=== PATIENT | male | born 1970 | race Hispanic/Latino ===

== ENCOUNTER 2018-01-31 15:52 | Inpatient (IN) | payer BC, OTHER ==
[2018-01-31] MEDS ORDERED: NA CHLORIDE 0.9% 1,000 ML ONE ×2 (17:31→18:13)
[2018-01-31] MEDS ORDERED: ONDANSETRON 4 MG/2 ML VIAL ONE (17:49)
[2018-01-31] MEDS ORDERED: CIPROFLOXACIN 400mg IV 400 MG/200 ML BAG IV ONE (17:49)
[2018-01-31] MEDS ORDERED: METRONIDAZOLE 500mg IVPB 500 MG/100 ML BAG IV ONE (17:50)
--- NOTE | 2018-01-31 17:50 | EKG ---
Test Date: 2018-01-31 Test Time: 17:31:42 Hand Assembler: MARK MEASUREMENT RESULTS: Intervals: Rate: 85 MA: 162 QRSD: 108 QT: 376 QTc: 447 [place]: P: 54 MA: 162 QRS: 21 T: 45 INTERPRETIVE STATEMENTS: Normal sinus rhythm Normal ECG No previous ECG available for comparison Electronically Signed On 01-31-18 17:50:18 CDT by Ronaldo Andre
[2018-01-31 17:54] LABS: Absolute Lymphocytes (CBC) 2.5 K/uL (0.7-4.9); Absolute Neutrophil 8.5 K/uL (1.8-8.0); Basophils % 0.3 % (0-1.3); Eosinophils % 0.8 % (0-4.4); Hematocrit 47.8 % (39.6-49.0); Lymphocytes % 20.6 % (15.3-44.8); MCV 87.5 fL (80-100); MPV 10.2 fL (7.6-11.3); Monocytes % 8.1 % (3.3-12.3); RBC Red Blood Cell Count 5.46 M/uL (4.33-5.43)
[2018-01-31 17:57] LABS: Protime INR 1.13
[2018-01-31] MEDS ORDERED: FENTANYL CITR 100 MCG/2 ML ONE (17:57)
[2018-01-31 18:09] LABS: ALT/SGPT 26 U/L (12-78); AST/SGOT 15 U/L (15-37); Albumin 4.2 g/dL (3.4-5.0); Alkaline Phosphatase 106 U/L (45-117); BUN Blood Urea Nitrogen 14 mg/dL (7-18); Bicarbonate 29 mmol/L (21-32); Bilirubin Direct 0.2 mg/dL (0-0.2); Bilirubin Total 0.5 mg/dL (0.2-1.0); CKMB Creatine Kinase MB < 1.0 ng/mL (0.3-3.6); Creatine Phosphokinase 71 U/L (39-308); Glucose Level 124 mg/dL (74-106); Lipase 159 U/L (73-393); Magnesium 2.1 mg/dL (1.8-2.4); NT PRO-BNP 21 pg/mL (<125); Potassium 3.6 mmol/L (3.5-5.1); Protein, Total 8.1 g/dL (6.4-8.2); Sodium Level 138 mmol/L (136-145); Troponin (Emerg Dept Use Only) < 0.02 ng/mL (0.0-0.045)
--- NOTE | 2018-01-31 18:51 | ER ---
Nurse's Notes [facility] Name: Get Sloan Age: 47 yrs Sex: Male : 1970 Arrival Date: 01/31/2018 Time: 15:[address] Private MD: Renea Garcias Diagnosis: Fever, unspecified;Vomiting;Diarrhea, unspecified;Abdominal tenderness;Essential (primary) hypertension;Type 1 diabetes mellitus Presentation: 01/31 16:04 Presenting complaint: Patient states: upper abd pain and diarrhea since Monday. Pt aa5 reports being seen by PCP yesterday and was prescribed unknown antibiotics. Pt also reports cough,headache, and chills. Transition of care: patient was not received from another setting of care. Onset of symptoms was January 2018. Risk Assessment: Do you want to hurt yourself or someone else? Patient reports no desire to harm self or others. Initial Sepsis Screen: Does the patient meet any 2 criteria? No. Patient's initial sepsis screen is negative. Does the patient have a suspected source of infection? No. Patient's initial sepsis screen is negative. Care prior to arrival: None. 16:04 Method Of Arrival: Ambulatory aa5 16:04 Acuity: ANTONIO 3 aa5 Triage Assessment: 19:24 General: Appears in no apparent distress. Behavior is calm, cooperative. ak1 Historical: - Allergies: 16:07 No Known Allergies; aa5 - PMHx: 16:07 Hypertension; Diabetes - IDDM; aa5 - PSHx: 16:07 Cholecystectomy; left eye; right knee; aa5 - Immunization history:: Flu vaccine is not up to date. - Social history:: Smoking status: Patient uses tobacco products, smokes one-half pack cigarettes per day. - Ebola Screening: : No symptoms or risks identified at this time. Screenin:39 Abuse screen: Denies threats or abuse. Nutritional screening: No deficits noted. iw Tuberculosis screening: No symptoms or risk factors identified. Fall Risk None identified. Assessment: 17:20 General: Appears in no apparent distress. Pain: Complains of pain in abdomen. Neuro: iw Level of Consciousness is awake, alert, obeys commands, Oriented to person, place, time, situation. Cardiovascular: Denies chest pain, shortness of breath, Heart tones S1 S2 Capillary refill < 3 seconds Patient's skin is warm and dry. Respiratory: Airway is patent Respiratory effort is even, unlabored, Respiratory pattern is regular, symmetrical, Breath sounds are clear bilaterally. GI: Abdomen is round Bowel sounds present X 4 quads. Abd is soft X 4 quads Reports diarrhea, nausea. : No signs and/or symptoms were reported regarding the genitourinary system. EENT: No signs and/or symptoms were reported regarding the EENT system. Derm: No signs and/or symptoms reported regarding the dermatologic system. Musculoskeletal: Range of motion: intact in all extremities. 18:15 Reassessment: Patient appears in no apparent distress at this time. Patient and/or tw2 family updated on plan of care and expected duration. Pain level reassessed. Patient is alert, oriented x 3, equal unlabored respirations, skin warm/dry/pink. Patient states feeling better. 19:23 Reassessment: pt returned from CT and informed of admission status. pt informed of NPO ak1 until test results return. family at bedside. will continue to monitor. . 20:26 Reassessment: report given to Bonny SORTO. ak1 Vital Signs: 16:07 BP 136 / 94; Pulse 100; Resp 18 S; Temp 99.3(TE); Pulse Ox 95% on R/A; Weight 108.86 kg aa5 (R); Height 5 ft. 10 in. (177.80 cm) (R); Pain 8/10; 18:09 BP 136 / 84; Pulse 85; Resp 17; Pulse Ox 95% on R/A; tw2 19:07 BP 132 / 55; Pulse 92; Resp 18; Pulse Ox 97% on R/A; mt 20:16 BP 136 / 88; Pulse 95; Resp 18; Temp 98.9; Pulse Ox 98% on R/A; Pain 4/10; ak1 16:07 Body Mass Index 34.44 (108.86 kg, 177.80 cm) aa5 ED Course: 15:57 Patient arrived in ED. mr 15:58 Renea Garcias is Private Physician. mr 16:04 Arm band placed on. aa5 16:06 Triage completed. aa5 17:19 Fahad Dai MD is Attending Physician. [facility] 17:20 Call light in reach. Side rails up X 1. Pulse ox on. NIBP on. iw 17:21 Martinez, Rocio, RN is Primary Nurse. tw2 17:26 Oral contrast given. sj 17:39 Inserted saline lock: 20 gauge in right antecubital area, using aseptic technique. iw Blood collected. 17:44 Oral contrast reported to be complete. sj 17:46 EKG done, by sql tech. reviewed by Fahad Dai MD. sm3 18:20 X-ray completed. Portable x-ray completed in exam room. Patient tolerated procedure sw well. 18:21 XRAY Chest (1 view) In Process Unspecified. EDMS 18:[address] via wheelchair. sj 18:48 Isidro Arnold MD is Hospitalizing Provider. [facility] 18:55 CT completed. Patient tolerated procedure well. Patient moved back from CT. nj 18:56 CT Abd/Pelvis - W/Contrast In Process Unspecified. EDMS 18:59 Report given to NOREEN Stauffer. tw2 19:24 No provider procedures requiring assistance completed. Patient admitted, IV remains in ak1 place. 19:51 Primary Nurse role handed off by Rocio Martinez RN rg2 20:09 Xiomy Woods RN is Primary Nurse. ak1 Administered Medications: 17:38 Drug: NS 0.9% 1000 ml Route: IV; Rate: 1 bolus; Site: right antecubital; iw 19:40 Follow up: IV Status: Completed infusion ak1 17:42 Drug: Zofran 4 mg Route: IVP; Site: right antecubital; tw2 18:32 Follow up: Response: No adverse reaction tw2 17:45 Drug: Flagyl 500 mg Volume: 100 ml; Route: IVPB; Rate: 200 ml/hr; Infused Over: 30 tw2 mins; Site: right antecubital; 18:20 Follow up: Response: No adverse reaction; IV Status: Completed infusion tw2 17:48 CANCELLED (Duplicate Order): Zofran 4 mg IVP once; over 2 minutes tw2 17:55 Drug: fentaNYL (PF) 25 mcg Route: IVP; Site: right antecubital; tw2 18:32 Follow up: Response: No adverse reaction; Pain is decreased tw2 18:21 Drug: Cipro 400 mg Volume: 200 ml; Route: IVPB; Infused Over: 60 mins; Site: right tw2 antecubital; 19:39 Follow up: IV Status: Completed infusion ak1 18:32 Drug: NS 0.9% 1000 ml Route: IV; Rate: 125 ml/hr; Site: right antecubital; tw2 19:25 Follow up: IV Status: Infusion continued upon admission ak1 20:22 Not Given (Patient Refused): fentaNYL (PF) 25 mcg IVP once ak1 Outcome: 18:50 Decision to Hospitalize by Provider. [facility] 19:24 Condition: stable ak1 19:24 Instructed on the need for admit. 20:18 Admitted to Med/surg accompanied by tech, family with patient, via wheelchair, room ak1 210, with chart. 20:41 Patient left the ED. ak1 Signatures: Dispatcher [employer] EDMS Raimundo Jewell rg2 Fahad Dai MD MD cha Rivera, Maria mr Mendel, Emmy Parisi, RN RN iw Nika Bolanos RN RN aa5 Xiomy Woods RN RN ak1 Patty Ware Tara, RN RN tw2 Abimael Nielsen Moriah mt Montes, Shakira [facility]
--- NOTE | 2018-01-31 18:51 | EDPHYS ---
Physician Documentation [facility] Name: Get Sloan Age: 47 yrs Sex: Male : 1970 Arrival Date: 01/31/2018 Time: 15:[address] Private MD: Renea Garcias ED Physician Fahad Dai HPI: 01/31 17:32 This 47 yrs old Male presents to ER via Ambulatory with complaints of dio Abdominal Pain, Diarrhea, Fever, Headache. 17:32 The patient presents to the emergency department with nausea, vomiting, diarrhea, dio abdominal pain, of the right upper quadrant, left upper quadrant, right lower quadrant and left lower quadrant. Onset: The symptoms/episode began/occurred 3 day(s) ago. Possible causes: unknown. The symptoms are aggravated by. Associated signs and symptoms: Pertinent positives: abdominal pain, diarrhea, fever, nausea, vomiting. Severity of symptoms: At their worst the symptoms were mild moderate. The patient has not experienced similar symptoms in the past. Historical: - Allergies: 16:07 No Known Allergies; aa5 - PMHx: 16:07 Hypertension; Diabetes - IDDM; aa5 - PSHx: 16:07 Cholecystectomy; left eye; right knee; aa5 - Immunization history:: Flu vaccine is not up to date. - Social history:: Smoking status: Patient uses tobacco products, smokes one-half pack cigarettes per day. - Ebola Screening: : No symptoms or risks identified at this time. ROS: 17:33 Constitutional: Negative for fever, chills, and weight loss, Eyes: Negative for injury, dio pain, redness, and discharge, ENT: Negative for injury, pain, and discharge, Neck: Negative for injury, pain, and swelling, Cardiovascular: Negative for chest pain, palpitations, and edema, Respiratory: Negative for shortness of breath, cough, wheezing, and pleuritic chest pain, Back: Negative for injury and pain, : Negative for injury, bleeding, discharge, and swelling, MS/Extremity: Negative for injury and deformity, Skin: Negative for injury, rash, and discoloration, Neuro: Negative for headache, weakness, numbness, tingling, and seizure, Psych: Negative for depression, anxiety, suicide ideation, homicidal ideation, and hallucinations, Allergy/Immunology: Negative for hives, rash, and allergies, Endocrine: Negative for neck swelling, polydipsia, polyuria, polyphagia, and marked weight changes, Hematologic/Lymphatic: Negative for swollen nodes, abnormal bleeding, and unusual bruising. 17:33 Abdomen/GI: Positive for abdominal pain, nausea and vomiting, diarrhea, of the right upper quadrant, left upper quadrant, right lower quadrant and abdomen diffusely. Exam: 17:33 Constitutional: This is a well developed, well nourished patient who is awake, alert, dio and in no acute distress. Head/Face: Normocephalic, atraumatic. Eyes: Pupils equal round and reactive to light, extra-ocular motions intact. Lids and lashes normal. Conjunctiva and sclera are non-icteric and not injected. Cornea within normal limits. Periorbital areas with no swelling, redness, or edema. ENT: Nares patent. No nasal discharge, no septal abnormalities noted. Tympanic membranes are normal and external auditory canals are clear. Oropharynx with no redness, swelling, or masses, exudates, or evidence of obstruction, uvula midline. Mucous membranes moist. Neck: Trachea midline, no thyromegaly or masses palpated, and no cervical lymphadenopathy. Supple, full range of motion without nuchal rigidity, or vertebral point tenderness. No Meningismus. Chest/axilla: Normal chest wall appearance and motion. Nontender with no deformity. No lesions are appreciated. Cardiovascular: Regular rate and rhythm with a normal S1 and S2. No gallops, murmurs, or rubs. Normal PMI, no JVD. No pulse deficits. Respiratory: Lungs have equal breath sounds bilaterally, clear to auscultation and percussion. No rales, rhonchi or wheezes noted. No increased work of breathing, no retractions or nasal flaring. Back: No spinal tenderness. No costovertebral tenderness. Full range of motion. Male : Normal genitalia with no discharge or lesions. Skin: Warm, dry with normal turgor. Normal color with no rashes, no lesions, and no evidence of cellulitis. MS/ Extremity: Pulses equal, no cyanosis. Neurovascular intact. Full, normal range of motion. Neuro: Awake and alert, GCS 15, oriented to person, place, time, and situation. Cranial nerves II-XII grossly intact. Motor strength 5/5 in all extremities. Sensory grossly intact. Cerebellar exam normal. Normal gait. Psych: Awake, alert, with orientation to person, place and time. Behavior, mood, and affect are within normal limits. 17:33 Abdomen/GI: Inspection: abdomen appears normal, Bowel sounds: normal, Palpation: moderate abdominal tenderness, in all quadrants, Liver: no appreciated palpable abnormalities, Hernia: not appreciated. 18:47 Neck: ROM/movement: is normal, no acute changes, Meningeal signs: are not present, dio Kernig's sign is negative, Brudzinski's sign is negative. Vital Signs: 16:07 BP 136 / 94; Pulse 100; Resp 18 S; Temp 99.3(TE); Pulse Ox 95% on R/A; Weight 108.86 kg aa5 (R); Height 5 ft. 10 in. (177.80 cm) (R); Pain 8/10; 18:09 BP 136 / 84; Pulse 85; Resp 17; Pulse Ox 95% on R/A; tw2 19:07 BP 132 / 55; Pulse 92; Resp 18; Pulse Ox 97% on R/A; mt 20:16 BP 136 / 88; Pulse 95; Resp 18; Temp 98.9; Pulse Ox 98% on R/A; Pain 4/10; ak1 16:07 Body Mass Index 34.44 (108.86 kg, 177.80 cm) aa5 MDM: 17:22 Patient medically screened. [facility] 17:34 Data reviewed: vital signs, nurses notes, lab test result(s), EKG, radiologic studies, [facility] CT scan, plain films. 01/31 17:21 Order name: Basic Metabolic Panel; Complete Time: 18:38 [facility] 01/31 17:21 Order name: CBC with Diff; Complete Time: 18:38 [facility] 01/31 17:21 Order name: Ckmb; Complete Time: 18:38 [facility] 01/31 17:21 Order name: CPK; Complete Time: 18:38 [facility] 01/31 17:21 Order name: LFT's; Complete Time: 18:38 [facility] 01/31 17:21 Order name: Magnesium; Complete Time: 18:38 [facility] 01/31 17:21 Order name: NT PRO-BNP; Complete Time: 18:38 [facility] 01/31 17:21 Order name: PT-INR; Complete Time: 18:38 [facility] 01/31 17:21 Order name: Ptt, Activated; Complete Time: 18:38 [facility] 01/31 17:21 Order name: Troponin (emerg Dept Use Only); Complete Time: 18:38 [facility] 01/31 17:21 Order name: Lipase; Complete Time: 18:38 [facility] 01/31 17:21 Order name: CDIFF [facility] 01/31 17:21 Order name: Stool Culture [facility] 01/31 17:21 Order name: Fecal Leukocyte Stain [facility] 01/31 17:21 Order name: XRAY Chest (1 view); Complete Time: 19:51 [facility] 01/31 17:21 Order name: EKG; Complete Time: 17:23 [facility] 01/31 17:21 Order name: Cardiac monitoring; Complete Time: 19:08 [facility] 01/31 17:21 Order name: CT Abd/Pelvis - W/Contrast; Complete Time: 19:51 [facility] 01/31 17:22 Order name: Urine Culture [facility] 01/31 20:34 Order name: Urine Dipstick--Ancillary (enter results) [facility] 01/31 17:21 Order name: EKG - Nurse/Tech; Complete Time: 19:09 [facility] 01/31 17:21 Order name: IV Saline Lock; Complete Time: 19:00 [facility] 01/31 17:21 Order name: Labs collected and sent; Complete Time: 19:00 [facility] 01/31 17:21 Order name: O2 Per Protocol; Complete Time: 19:00 [facility] 01/31 17:21 Order name: O2 Sat Monitoring; Complete Time: 19:00 [facility] 01/31 17:21 Order name: Urine Dipstick-Ancillary (obtain specimen); Complete Time: 20:23 [facility] Administered Medications: 17:38 Drug: NS 0.9% 1000 ml Route: IV; Rate: 1 bolus; Site: right antecubital; iw 19:40 Follow up: IV Status: Completed infusion ak1 17:42 Drug: Zofran 4 mg Route: IVP; Site: right antecubital; tw2 18:32 Follow up: Response: No adverse reaction tw2 17:45 Drug: Flagyl 500 mg Volume: 100 ml; Route: IVPB; Rate: 200 ml/hr; Infused Over: 30 tw2 mins; Site: right antecubital; 18:20 Follow up: Response: No adverse reaction; IV Status: Completed infusion tw2 17:48 CANCELLED (Duplicate Order): Zofran 4 mg IVP once; over 2 minutes tw2 17:55 Drug: fentaNYL (PF) 25 mcg Route: IVP; Site: right antecubital; tw2 18:32 Follow up: Response: No adverse reaction; Pain is decreased tw2 18:21 Drug: Cipro 400 mg Volume: 200 ml; Route: IVPB; Infused Over: 60 mins; Site: right tw2 antecubital; 19:39 Follow up: IV Status: Completed infusion ak1 18:32 Drug: NS 0.9% 1000 ml Route: IV; Rate: 125 ml/hr; Site: right antecubital; tw2 19:25 Follow up: IV Status: Infusion continued upon admission ak1 20:22 Not Given (Patient Refused): fentaNYL (PF) 25 mcg IVP once ak1 Disposition: 01/31/18 18:50 Hospitalization ordered by Isidro Arnold for Observation. Preliminary diagnosis are Fever, unspecified, Vomiting, Diarrhea, unspecified, Abdominal tenderness, Essential (primary) hypertension, Type 1 diabetes mellitus. - Bed requested for Telemetry/MedSurg (observation). - Status is Observation. ak1 - Condition is Stable. - Problem is new. - Symptoms have improved. UTI on Admission? No Signatures: Dispatcher [employer] EDMS Kathryn Barnes RN RN kl Anderson, Corey, MD MD cha Williams, Irene, RN RN iw Calderon, Audri, RN RN aa5 Abel Donovan PA PA 8 Xiomy Woods RN RN ak1 Rocio Martinez RN RN tw2 Corrections: (The following items were deleted from the chart) 17:23 17:21 Urine Test ordered. [place] [id number] 17:24 17:22 CDIFF.MR.LAB.BRZ ordered. EDME EDMS 17:24 17:23 Stool Culture+BA.LAB.BRZ ordered. EDME EDMS 17:24 17:23 Fecal Leukocyte Stain+BA.LAB.BRZ ordered. EDME EDMS 17:42 17:23 BLOOD CULTURE*+BA.LAB.BRZ ordered. EDME EDMS 17:48 17:42 Zofran 4 mg IVP once; over 2 minutes ordered. [place] [id number] 20:03 18:50 Hospitalization Ordered by Isidro Arnold MD for Observation. Preliminary diagnosis is Fever, unspecified; Vomiting; Diarrhea, unspecified; Abdominal tenderness; Essential (primary) hypertension; Type 1 diabetes mellitus. Bed requested for Telemetry/MedSurg (observation). Status is Observation. Condition is Stable. Problem is new. Symptoms have improved. UTI on Admission? No. dio 20:41 20:03 01/31/2018 18:50 Hospitalization Ordered by Isidro Arnold MD for Observation. ak1 Preliminary diagnosis is Fever, unspecified; Vomiting; Diarrhea, unspecified; Abdominal tenderness; Essential (primary) hypertension; Type 1 diabetes mellitus. Bed requested for Telemetry/MedSurg (observation). Status is Observation. Condition is Stable. Problem is new. Symptoms have improved. UTI on Admission? No. kl
--- NOTE | 2018-01-31 19:43 | RAD REPORT ---
EXAM DESCRIPTION: CTAbdomen Pelvis W Contrast - 01/31/2018 6:56 pm CLINICAL HISTORY: Abdominal pain. ABD PAIN COMPARISON: No comparisons TECHNIQUE: Biphasic CT imaging of the abdomen and pelvis was performed with 100 ml non-ionic IV cont rast. All CT scans are performed using dose optimization technique as appropriate and may include automated exposure control or mA/KV adjustment according to patient size. FINDINGS: Linear subsegmental atelectasis is seen in both posterior lung bases. Mild distal esophage al thickening is present with several surrounding lymph nodes, the largest measuring 9 mm. Mild fatty liver is seen. Cholecystectomy clips are present. The spleen, pancreas, adrenal glands and kidneys are within limits. Multiple dilated small bowel loops are present in the central abdomen compatible with moderate mechan ical small-bowel obstruction. No free air or abscess. The appendix is normal. No suspicious bony findings. IMPRESSION: Moderate mechanical small bowel obstruction. A point of transition is suspected in the r ight mid abdomen (image 61/108). Thickening of the distal esophagus with several surrounding lymph nodes present. Upper endoscopy woul d be suggested for followup.
--- NOTE | 2018-01-31 19:44 | RAD REPORT ---
EXAM DESCRIPTION: RAD - Chest Single View - 01/31/2018 6:21 pm CLINICAL HISTORY: COUGH Chest pain. COMPARISON: No comparisons FINDINGS: Portable technique limits examination quality. The lungs are grossly clear. The heart is normal in size. No displaced fractures. IMPRESSION: No acute intrathoracic process suspected.
[2018-01-31] MEDS ORDERED: ACETAMINOPHEN 500 MG TAB PO PRN (19:54)
--- NOTE | 2018-01-31 20:18 | P.HP ---
Certification for Inpatient Patient admitted to: Inpatient With expected LOS: >2 Midnights Practitioner: I am a practitioner with admitting privileges, knowledge of patient current condition, hospital course, and medical plan of care. Services: Services provided to patient in accordance with Admission requirements found in Title 42 Section 412.3 of the Code of Federal Regulations Patient History Date of Service: 01/31/18 Reason for admission: Small-bowel obstruction History of Present Illness: Mr Sloan is a 47-year-old male with history of hypertension, diabetes mellitus types 2, who start about 3 days ago with abdominal pain associated with diarrhea. His pain was localized on mid abdomen, radiated to right lower quadrant, associated with nausea but no vomiting. He then may shorten his temperature was, but he states that he felt like he was febrile, having chills and sweating episode. Today his abdominal pain got worse and he decided to come to ER for farther evaluation. Lab work remarkable for leukocytosis, 12.[address] abdomen and pelvis showed mechanical small bowel obstruction with transition point in right mid abdomen. He was also remarkable for thickening of the distal esophagus with several surrounding lymph nodes. Allergies No Known Allergies Allergy (Unverified 01/31/18 19:57) - Past Medical/Surgical History -: Diabetes mellitus types 2 -: Hypertension -: Cholecystectomy -: Left side -: Right knee - Family History Family History: Reviewed- Non-Contributory - Social History Smoking Status: Current every day smoker Counseled patient to stop smoking for: less than 10 minutes Smoking therapy provided: Yes Patient receptive to therapy: No Alcohol use: Yes CD- Drugs: No Place of Residence: Home Review of Systems 10-point ROS is otherwise unremarkable Physical Examination - Physical Exam General: Alert, In no apparent distress HEENT: Atraumatic, PERRLA, Mucous membr. moist/pink, EOMI, Sclerae nonicteric Neck: Supple, 2+ carotid pulse no bruit, No LAD, Without JVD or thyroid abnormality Respiratory: Clear to auscultation bilaterally, Normal air movement Cardiovascular: Regular rate/rhythm, Normal S1 S2 Gastrointestinal: Hypoactive, Tenderness (Tenderness to palpation in mid abdomen and right lower quadrant) Musculoskeletal: No tenderness Integumentary: No rashes Neurological: Normal speech, Normal strength at 5/5 x4 extr, Normal tone, Normal affect Lymphatics: No axilla or inguinal lymphadenopathy - Studies Laboratory Data (last 24 hrs) 01/31/18 17:35: PT 13.4 H, INR 1.13, APTT 29.2 01/31/18 17:35: WBC 12.1 H, Hgb 16.4, Hct 47.8, Plt Count 185 01/31/18 17:35: Sodium 138, Potassium 3.6, BUN 14, Creatinine 0.90, Glucose 124 H, Magnesium 2.1, Total Bilirubin 0.5, AST 15, ALT 26, Alkaline Phosphatase 106 , Lipase 159 Assessment and Plan - Problems (Diagnosis) (1) Small bowel obstruction Current Visit: Yes Status: Acute (2) Diabetes mellitus Current Visit: Yes Status: Acute Qualifiers: Diabetes mellitus type: type 2 Diabetes mellitus snf insulin 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 Possible secondary to a colitis/enteritis. Continue NPO, IV fluids, start empiric antibiotics. Consult surgery team for evaluation recommendation. CT scan of the abdomen also showed thickening of the distal esophagus with surrounding lymphadenopathy. This will need to have farther follow-up with another CT scan to evaluate resolution. If not EGD will be appropriate. Will order hemoglobin A1c and SSI for blood sugar control. - Advance Directives Does patient have a Living Will: No Does patient have a Durable POA for Healthcare: No - Code Status/Comfort Care Code Status Assessed: Yes Code Status: Full Code
[2018-01-31 20:52] LABS: Urine Blood NEGATIVE (NEG); Urine Glucose NEGATIVE (NEG); Urine Protein TRACE (NEG); Urine Specific Gravity >1.030 (1.005-1.030); Urine pH 5.5 (5.0-7.0)
[2018-01-31] MEDS: MORPHINE 2 MG/ML SYR IV PRN (21:37)
[2018-01-31] MEDS: NA CHLORIDE 0.9% 1,000 ML IV SCH (21:41)
[2018-02-01] MEDS: METRONIDAZOLE 500mg IVPB 500 MG/100 ML BAG IV SCH ×3 (01:03→16:04)
[2018-02-01] MEDS: MORPHINE 2 MG/ML SYR IV PRN ×5 (01:04→19:36)
[2018-02-01 05:21] LABS: Absolute Monocytes 1.2 K/uL (0.1-1.3); Absolute Neutrophil 9.4 K/uL (1.8-8.0); Basophils % 0.2 % (0-1.3); Eosinophils % 0.3 % (0-4.4); Lymphocytes % 16.1 % (15.3-44.8); MCH 30.4 pg (27.0-35.0); MCV 88.7 fL (80-100); MPV 10.4 fL (7.6-11.3); Monocytes % 9.1 % (3.3-12.3); RBC Red Blood Cell Count 4.96 M/uL (4.33-5.43)
[2018-02-01 05:46] LABS: BUN Blood Urea Nitrogen 9 mg/dL (7-18); Bicarbonate 29 mmol/L (21-32); Glucose Level 121 mg/dL (74-106); Potassium 4.3 mmol/L (3.5-5.1); Sodium Level 141 mmol/L (136-145)
[2018-02-01] MEDS: NA CHLORIDE 0.9% 1,000 ML IV SCH ×2 (05:49→16:06)
[2018-02-01] MEDS: INSULIN -REGULAR HUMAN 50 UNIT/0.5 ML ML SQ SCH ×4 (05:56→18:00)
[2018-02-01] MEDS: CIPROFLOXACIN 400mg IV 400 MG/200 ML BAG IV SCH ×2 (07:23→16:16)
[2018-02-01] MEDS ORDERED: HYDRALAZINE HCL 20 MG/ML VIAL IV PRN (08:35)
--- NOTE | 2018-02-01 08:41 | P.PN ---
Subjective Date of Service: 02/01/18 Primary Care Provider: None Chief Complaint: Small-bowel obstruction Subjective: Other (Patient still with abdominal pain. No significant nausea noted at this time.) Physical Examination - Vital Signs Temperature: 97.9 F Blood Pressure: 137/79 Pulse: 80 Respirations: 16 Pulse Ox (%): 94 - Physical Exam General: Alert, In no apparent distress, Oriented x3, Cooperative HEENT: Atraumatic Neck: Supple Respiratory: Clear to auscultation bilaterally, Normal air movement Cardiovascular: Normal pulses, Regular rate/rhythm Gastrointestinal: Hypoactive (Throughout), Non-distended, No masses, No rebound , No guarding, Tenderness (Pain diffuse but controlled with medication) Musculoskeletal: No erythema, No tenderness, No warmth Integumentary: No tenderness/swelling, No erythema, No warmth, No cyanosis Neurological: Normal speech, Normal strength at 5/5 x4 extr, Normal tone, Normal affect - Studies Laboratory Data (last 24 hrs) 01/31/18 17:35: PT 13.4 H, INR 1.13, APTT 29.2 01/31/18 17:35: WBC 12.1 H, Hgb 16.4, Hct 47.8, Plt Count 185 01/31/18 17:35: Sodium 138, Potassium 3.6, BUN 14, Creatinine 0.90, Glucose 124 H, Magnesium 2.1, Total Bilirubin 0.5, AST 15, ALT 26, Alkaline Phosphatase 106 , Lipase 159 Medications List Reviewed: Yes Assessment & Plan Discharge Plan: Home Plan to discharge in: Greater than 2 days Physician Review Additional Text: Impression: Abdominal pain, nausea and vomiting with diarrhea secondary to moderate mechanical small bowel obstruction Possible enteritis CT scan showing thickened wall of the esophagus likely GERD with esophagitis Diabetes mellitus type 2 controlled Hypertension Hypothyroidism Obesity Plan: Patient currently NPO at this time due to moderate mechanical small bowel obstruction. Will provide IV fluids and pain medication. Patient currently stable at this time. Await further recommendations from surgery. If condition worsens patient may require surgical intervention. Will continue with IV antibiotic therapy for possible enteritis is well. Patient reports other family member with similar GI issues recently. CT scan also shows thickened wall of the esophagus likely GERD with esophagitis. Will start IV Protonix. Patient will need EGD in the future. Patient with diabetes. Will provide sliding scale and monitor closely. Patient with hypertension. Will provide medication as needed. Patient with hypothyroidism. Will provide IV medication at half the dose of oral medication PICC will continue to monitor closely. Encourage ambulation. Will discuss case further with surgery. Will start DVT prophylaxis. Time Spent Managing Pts Care (In Minutes): 55
[2018-02-01] MEDS: PANTOPRAZOLE 40 MG INJ IVP SCH ×2 (09:14→09:15)
[2018-02-01] MEDS: ONDANSETRON 4 MG/2 ML VIAL IV PRN (10:05)
[2018-02-01] MEDS: ENOXAPARIN 40 MG/0.4 ML SQ SCH (16:06)
--- NOTE | 2018-02-01 22:48 | CON ---
Date of Consultation: 02/01/2018 Reason For Service: Small-bowel obstruction. History Of Present Illness: This is the case of a 47-year-old patient, comes to us with 3-day histor y of nausea and vomiting. Etiology of that is unknown. He does remember any dysuria, hematuria, hem atochezia, or melena. Denies any recent traveling out of the country. Denies any family member sick at home. The patient denies any prior episode. Last night, he just did not get better, so he decid ed to come to the ER. Past Medical History: Diabetes, hypertension. Surgical History: Includes cholecystectomy and knee surgery several years ago. Social Habits: The patient smoked every day. He does not drink alcohol. Family History: Noncontributory. Allergies: NONE. Review of Systems: Constitutional: Denies any fever. Respiratory: Denies any shortness of breath. Gastrointestinal: As above. Genitourinary: Denies any dysuria, hematuria. Physical Examination: General: The patient is awake and alert. HEENT: Pupils are equal and reactive, anicteric. Neck: Supple. Chest: Clear. Heart: S1, S2. Abdomen: Softly distended. Mild diffuse tenderness. No guarding or rebound. Rectal: Deferred. Extremities: Good capillary refill. Laboratory Data: Blood work shows WBC count of 12.1 with hemoglobin of 16.4. INR 1.13, glucose 129, and potassium 4.3. UA; nitrite negative. CAT scan of the abdomen and pelvis interpreted by Dr. Jonatan gould; moderate mechanical obstruction, point of transition possible in the mid abdomen. There is also s ome thickening of the distal esophagus with the lymph nodes surrounding the area. The patient was pollard ggested to see a communications scientist as soon as possible for EGD and workup. Assessment: This is a 47-year-old patient with small-bowel obstruction. Etiology of that is unknown . He had several episodes of diarrhea, starting to get better now. Cultures were order already by t he primary doctor. From the surgical standpoint, we are going to continue with bowel rest, observati on, and serial abdominal examination. He understands the options of laparotomy if conservative treat ment fails. Benefits, alternatives, and risks were fully explained to the patient. SHENG/CHAUNCEY Voice ID: [id number] Report ID: [id number]
[2018-02-02] MEDS: METRONIDAZOLE 500mg IVPB 500 MG/100 ML BAG IV SCH ×3 (01:22→17:28)
[2018-02-02] MEDS: NA CHLORIDE 0.9% 1,000 ML IV SCH (02:00)
[2018-02-02] MEDS: INSULIN -REGULAR HUMAN 50 UNIT/0.5 ML ML SQ SCH ×4 (06:00→17:43)
[2018-02-02] MEDS: D5 0.9 NS 1,000 ML IV SCH ×2 (06:34→17:00)
[2018-02-02] MEDS: LEVOTHYROXINE SODIUM 100 MCG VIAL IV SCH (06:34)
[2018-02-02] MEDS: CIPROFLOXACIN 400mg IV 400 MG/200 ML BAG IV SCH ×2 (06:34→19:47)
[2018-02-02] MEDS: PANTOPRAZOLE 40 MG INJ IVP SCH (09:11)
--- NOTE | 2018-02-02 13:34 | PN ---
Date of Progress Note: 02/02/2018 Diagnosis: Small bowel obstruction. The patient states he feels better today. Less distention. Review of Systems: Constitutional: Denies any fever. Respiratory: Denies any shortness of breath. Gastrointestinal: Less bloated. Bowel movement present, but no flatus. Physical Examination: General: The patient is awake and alert. No distress. HEENT: Pupils are equal and reactive. Neck: Supple. Abdomen: Softly distended. No guarding or rebound. Mild generalized tenderness better than yesterd ay. Rectal: Deferred. Extremities: Good capillary refill. Plan: Continue bowel rest, ambulation. If he does not open in the next 24 to 48 hours, we may need small bowel series. He understood. SHENG/CHAUNCEY Voice ID: [id number] Report ID: [id number]
--- NOTE | 2018-02-02 14:21 | P.PN ---
Subjective Date of Service: 02/02/18 Primary Care Provider: None Chief Complaint: Small-bowel obstruction Subjective: Other (Patient is slightly improved. Patient still with pain. Some passage of gas noted.) Physical Examination - Vital Signs Temperature: 97.4 F Blood Pressure: 133/78 Pulse: 76 Respirations: 18 Pulse Ox (%): 97 - Physical Exam General: Alert, In no apparent distress, Oriented x3, Cooperative HEENT: Atraumatic Neck: Supple Respiratory: Clear to auscultation bilaterally, Normal air movement Cardiovascular: Normal pulses, Regular rate/rhythm Gastrointestinal: Hypoactive (Throughout), No masses, No rebound, No guarding, Distended (Less distention noted.), Tenderness (Less pain noted.) Musculoskeletal: No erythema, No tenderness, No warmth Integumentary: No tenderness/swelling, No erythema, No warmth, No cyanosis Neurological: Normal speech, Normal strength at 5/5 x4 extr, Normal tone, Normal affect - Studies Microbiology Data (last 24 hrs): 02/01/18 06:30 Stool Fecal Leukocyte Stain - Final 02/01/18 06:30 Stool Clostridium difficile Toxin Assay - Final Medications List Reviewed: Yes Assessment & Plan Physician Review Additional Text: Impression: Abdominal pain, nausea and vomiting with diarrhea secondary to moderate mechanical small bowel obstruction Possible enteritis CT scan showing thickened wall of the esophagus likely GERD with esophagitis Diabetes mellitus type 2 controlled Hypertension Hypothyroidism Obesity Plan: Patient continues to be NPO due to moderate mechanical small bowel obstruction. Slight improvement noted. Will continue monitor patient closely. If no significant improvement patient may require small bowel series. Will continue with IV fluids and antibiotic therapy. Continue with PPI. Will monitor electrolytes. Patient on sliding scale for his diabetes. Will provide IV medication for hypertension and hypothyroidism. Encourage ambulation. Will provide incentive spirometer. Will continue to reassess. Patient on DVT prophylaxis.
[2018-02-02] MEDS: MORPHINE 2 MG/ML SYR IV PRN ×2 (17:03→22:16)
[2018-02-02] MEDS: ENOXAPARIN 40 MG/0.4 ML SQ SCH (17:32)
[2018-02-02] MEDS: ONDANSETRON 4 MG/2 ML VIAL IV PRN (20:37)
[2018-02-03] MEDS: METRONIDAZOLE 500mg IVPB 500 MG/100 ML BAG IV SCH ×3 (01:17→18:51)
[2018-02-03] MEDS: INSULIN -REGULAR HUMAN 50 UNIT/0.5 ML ML SQ SCH ×4 (06:00→18:00)
[2018-02-03] MEDS: D5 0.9 NS 1,000 ML IV SCH ×2 (06:06→12:00)
[2018-02-03] MEDS: LEVOTHYROXINE SODIUM 100 MCG VIAL IV SCH (06:07)
[2018-02-03] MEDS: SODIUM CHLORIDE 0.9% 10ML INJ IV PRN (06:07)
[2018-02-03 08:23] LABS: Absolute Lymphocytes (CBC) 1.5 K/uL (0.7-4.9); Absolute Monocytes 0.6 K/uL (0.1-1.3); Absolute Neutrophil 4.5 K/uL (1.8-8.0); Basophils % 0.5 % (0-1.3); Hematocrit 40.7 % (39.6-49.0); Lymphocytes % 22.1 % (15.3-44.8); MCH 30.4 pg (27.0-35.0); MCV 86.4 fL (80-100); Monocytes % 9.3 % (3.3-12.3); RBC Red Blood Cell Count 4.71 M/uL (4.33-5.43)
[2018-02-03 08:32] LABS: BUN Blood Urea Nitrogen 9 mg/dL (7-18); Bicarbonate 28 mmol/L (21-32); Glucose Level 126 mg/dL (74-106); Magnesium 2.1 mg/dL (1.8-2.4); Potassium 3.4 mmol/L (3.5-5.1); Sodium Level 141 mmol/L (136-145)
[2018-02-03] MEDS ORDERED: NA CHLORIDE 0.9% 250 ML ONE (08:32)
[2018-02-03] MEDS: PANTOPRAZOLE 40 MG INJ IVP SCH (08:43)
[2018-02-03] MEDS: CIPROFLOXACIN 400mg IV 400 MG/200 ML BAG IV SCH ×2 (08:43→18:52)
--- NOTE | 2018-02-03 11:56 | P.PN ---
Subjective Date of Service: 02/03/18 Primary Care Provider: None Chief Complaint: Small-bowel obstruction Subjective: Other (Still no significant improvement. Patient still with mild distention and pain.) Physical Examination - Vital Signs Temperature: 97.3 F Blood Pressure: 111/68 Pulse: 74 Respirations: 18 Pulse Ox (%): 94 - Physical Exam General: Alert, In no apparent distress, Oriented x3, Cooperative HEENT: Atraumatic Neck: Supple Respiratory: Clear to auscultation bilaterally, Normal air movement Cardiovascular: Normal pulses, Regular rate/rhythm Gastrointestinal: Hypoactive, No masses, No rebound, No guarding, Distended ( Mild distention but no significant change), Tenderness (oven press tender to the abdomen) Musculoskeletal: No erythema, No tenderness, No warmth Integumentary: No erythema, No warmth, No cyanosis Neurological: Normal speech, Normal strength at 5/5 x4 extr, Normal tone, Normal affect - Studies Microbiology Data (last 24 hrs): 01/31/18 20:28 Clean Catch Urine Kite Count - Final <10,000 CFU/ML. 01/31/18 20:28 Clean Catch Urine - Final 02/01/18 06:30 Stool Fecal Leukocyte Stain - Final Medications List Reviewed: Yes Assessment & Plan Physician Review Additional Text: Impression: Abdominal pain, nausea and vomiting with diarrhea secondary to moderate mechanical small bowel obstruction Possible enteritis CT scan showing thickened wall of the esophagus likely GERD with esophagitis Diabetes mellitus type 2 controlled Hypertension Hypothyroidism Obesity Plan: Patient continues to be NPO due to moderate mechanical small bowel obstruction. No significant change noted. Will discuss case with surgery. Patient may require surgical intervention. Surgery yesterday recommended the possibility of a small bowel series to further assess. Will wait on surgical recommendation at this time. Continue IV fluids and antibiotic therapy. Patient on sliding scale for diabetes. Medication for hypertension and hypothyroidism to continue. Patient on DVT prophylaxis. Encourage the patient to continue with incentive spirometer and ambulation. Time Spent Managing Pts Care (In Minutes): 55
[2018-02-03] MEDS: KCL 20 MEQ/100 mL IVPB 20 MEQ/100 ML BAG IV SCH ×2 (12:45→15:13)
[2018-02-03] MEDS: ENOXAPARIN 40 MG/0.4 ML SQ SCH (18:52)
[2018-02-04] MEDS: METRONIDAZOLE 500mg IVPB 500 MG/100 ML BAG IV SCH ×2 (00:23→08:25)
[2018-02-04] MEDS: D5 0.9 NS 1,000 ML IV SCH ×2 (03:34→08:00)
[2018-02-04 05:07] LABS: Absolute Lymphocytes (CBC) 1.9 K/uL (0.7-4.9); Absolute Monocytes 0.6 K/uL (0.1-1.3); Absolute Neutrophil 3.8 K/uL (1.8-8.0); Basophils % 0.9 % (0-1.3); Eosinophils % 3.2 % (0-4.4); Hematocrit 38.6 % (39.6-49.0); Lymphocytes % 28.6 % (15.3-44.8); MCH 30.8 pg (27.0-35.0); MCV 86.6 fL (80-100); MPV 9.9 fL (7.6-11.3); Monocytes % 9.5 % (3.3-12.3); RBC Red Blood Cell Count 4.46 M/uL (4.33-5.43)
[2018-02-04 05:27] LABS: BUN Blood Urea Nitrogen 9 mg/dL (7-18); Bicarbonate 27 mmol/L (21-32); Glucose Level 105 mg/dL (74-106); Magnesium 2.2 mg/dL (1.8-2.4); Potassium 3.4 mmol/L (3.5-5.1); Sodium Level 142 mmol/L (136-145)
[2018-02-04] MEDS: SODIUM CHLORIDE 0.9% 10ML INJ IV PRN (05:37)
[2018-02-04] MEDS: LEVOTHYROXINE SODIUM 100 MCG VIAL IV SCH (05:37)
[2018-02-04] MEDS: KCL 20 MEQ/100 mL IVPB 20 MEQ/100 ML BAG IV SCH ×2 (05:38→08:25)
[2018-02-04] MEDS: INSULIN -REGULAR HUMAN 50 UNIT/0.5 ML ML SQ SCH ×5 (05:45→23:47)
[2018-02-04] MEDS: CIPROFLOXACIN 400mg IV 400 MG/200 ML BAG IV SCH ×2 (08:25→22:00)
[2018-02-04] MEDS: PANTOPRAZOLE 40 MG INJ IVP SCH (08:26)
[2018-02-04] MEDS ORDERED: NA CHLORIDE 0.9% 250 ML ONE (08:39)
--- NOTE | 2018-02-04 08:48 | P.PN ---
Subjective Date of Service: 02/04/18 Primary Care Provider: None Chief Complaint: Small-bowel obstruction Subjective: Improving (Patient is passing gas this morning. He also had 1 bowel movement. Slightly improved since yesterday.) Physical Examination - Vital Signs Temperature: 97.7 F Blood Pressure: 132/80 Pulse: 68 Respirations: 18 Pulse Ox (%): 94 - Physical Exam General: Alert, In no apparent distress, Oriented x3, Cooperative HEENT: Atraumatic, Mucous membr. moist/pink Neck: Supple, No Thyromegaly Respiratory: Clear to auscultation bilaterally, Normal air movement Cardiovascular: Normal pulses, Regular rate/rhythm Gastrointestinal: Hypoactive (Bowel sounds improve since yesterday peer), Distended (Slightly less distention noted today.), Tenderness (Less significant abdominal pain noted today.) Musculoskeletal: No erythema, No tenderness, No warmth Integumentary: No tenderness/swelling, No erythema, No warmth, No cyanosis Neurological: Normal speech, Normal strength at 5/5 x4 extr, Normal tone, Normal affect - Studies Microbiology Data (last 24 hrs): 02/01/18 06:30 Stool Culture & Sensitivity - Final 01/31/18 20:28 Clean Catch Urine [place] Count - Final <10,000 CFU/ML. 01/31/18 20:28 Clean Catch Urine - Final Medications List Reviewed: Yes Assessment & Plan Plan to discharge in: 48 Hours Physician Review Additional Text: Impression: Abdominal pain, nausea and vomiting with diarrhea secondary to moderate mechanical small bowel obstruction Possible enteritis CT scan showing thickened wall of the esophagus likely GERD with esophagitis Diabetes mellitus type 2 controlled, A1c 5.7 Hypertension Hypothyroidism Obesity Plan: Patient remains NPO due to moderate mechanical small bowel obstruction. Patient did have gas and bowel movement this morning. This is a significant change since yesterday. Case discussed at length with surgery yesterday. Will order small bowel series today to further assess his obstruction. Hopefully improvement is noted. If improved will consider starting clear liquid diet if okay with surgery. If no significant improvement the patient may require surgical intervention. Will continue to monitor his diabetes, hypertension and hypothyroidism. Patient continues with medication IV. Will adjust IV fluids. Encourage ambulation. Encourage incentive spirometer. Continue monitor lab closely. Time Spent Managing Pts Care (In Minutes): 55
[2018-02-04] MEDS: D5 0.45 NS 1,000 ML IV SCH ×3 (09:00→19:00)
--- NOTE | 2018-02-04 16:32 | RAD REPORT ---
EXAM DESCRIPTION: RAD - Small Bowel Series - 02/04/2018 4:03 pm CLINICAL HISTORY: Abdominal pain, small bowel obstruction COMPARISON: CT study January 31 FINDINGS: [employer] Processing [employer] Operator images demonstrate multiple dilated small bowel loops. Contrast is present in nondil ated colon indicating CT contrast has passed into the large intestine. No free air or pneumatosis. No suspicious calcifications. Gastric size and mucosal fold pattern are normal. No delay in transit of contrast into the small victoriano l. Duodenum is normal in diameter. Multiple dilated loops of ileum and jejunum noted throughout the a bdomen. No mucosal thickening, mass or focal lesion identifiable. A transition point in the right low er quadrant is not specifically defined. Terminal ileum and ileocecal valve mostly obscured by overla pping bowel loops. Transit time to the colon is 6 hours. IMPRESSION: Multiple dilated small bowel loops. Any specific transition point is not clearly defined due to the multiple overlapping loops in the right lower quadrant. Transit time to the colon was 6 hours.
[2018-02-04] MEDS: ENOXAPARIN 40 MG/0.4 ML SQ SCH (16:56)
[2018-02-05] MEDS: METRONIDAZOLE 500mg IVPB 500 MG/100 ML BAG IV SCH ×3 (00:18→16:32)
[2018-02-05] MEDS: D5 0.45 NS 1,000 ML IV SCH ×3 (03:58→21:53)
[2018-02-05] MEDS: LEVOTHYROXINE SODIUM 100 MCG VIAL IV SCH (05:32)
[2018-02-05 05:42] LABS: BUN Blood Urea Nitrogen 5 mg/dL (7-18); Bicarbonate 27 mmol/L (21-32); Glucose Level 106 mg/dL (74-106); Magnesium 1.9 mg/dL (1.8-2.4); Potassium 3.2 mmol/L (3.5-5.1); Sodium Level 142 mmol/L (136-145)
[2018-02-05 05:43] LABS: Absolute Lymphocytes (CBC) 1.7 K/uL (0.7-4.9); Absolute Monocytes 0.6 K/uL (0.1-1.3); Absolute Neutrophil 4.7 K/uL (1.8-8.0); Basophils % 0.4 % (0-1.3); Eosinophils % 2.5 % (0-4.4); Hematocrit 36.2 % (39.6-49.0); MCV 86.2 fL (80-100); MPV 9.8 fL (7.6-11.3); Monocytes % 8.5 % (3.3-12.3)
[2018-02-05] MEDS: INSULIN -REGULAR HUMAN 50 UNIT/0.5 ML ML SQ SCH ×4 (06:00→21:00)
[2018-02-05] MEDS: KCL 20 MEQ/100 mL IVPB 20 MEQ/100 ML BAG IV SCH ×2 (06:41→08:46)
[2018-02-05] MEDS: CIPROFLOXACIN 400mg IV 400 MG/200 ML BAG IV SCH ×2 (08:43→21:53)
[2018-02-05] MEDS: PANTOPRAZOLE 40 MG INJ IVP SCH (08:44)
--- NOTE | 2018-02-05 10:19 | P.PN ---
Subjective Date of Service: 02/04/18 Primary Care Provider: None Chief Complaint: Small-bowel obstruction Subjective: No new changes Review of Systems 10-point ROS is otherwise unremarkable Gastrointestinal: Distention, Other (no flatus), As per HPI Physical Examination - Vital Signs Temperature: 98.0 F Blood Pressure: 118/72 Pulse: 64 Respirations: 18 Pulse Ox (%): 96 - Physical Exam General: Alert, In no apparent distress, Oriented x3 HEENT: PERRLA, EOMI Neck: Supple Gastrointestinal: No rebound, No guarding, Distended, Tenderness (mild generalized) - Studies Medications List Reviewed: Yes Assessment And Plan - Plan Small bowel series Surgical options with BAR explained again Physician Review Additional Text: Impression: Abdominal pain, nausea and vomiting with diarrhea secondary to moderate mechanical small bowel obstruction Possible enteritis CT scan showing thickened wall of the esophagus likely GERD with esophagitis Diabetes mellitus type 2 controlled, A1c 5.7 Hypertension Hypothyroidism Obesity Plan: Patient remains NPO due to moderate mechanical small bowel obstruction. Patient did have gas and bowel movement this morning. This is a significant change since yesterday. Case discussed at length with surgery yesterday. Will order small bowel series today to further assess his obstruction. Hopefully improvement is noted. If improved will consider starting clear liquid diet if okay with surgery. If no significant improvement the patient may require surgical intervention. Will continue to monitor his diabetes, hypertension and hypothyroidism. Patient continues with medication IV. Will adjust IV fluids. Encourage ambulation. Encourage incentive spirometer. Continue monitor lab closely.
--- NOTE | 2018-02-05 10:20 | P.PN ---
Subjective Date of Service: 02/05/18 Primary Care Provider: None Chief Complaint: Small-bowel obstruction Subjective: Ambulating, Improving Review of Systems 10-point ROS is otherwise unremarkable Physical Examination - Vital Signs Temperature: 98.0 F Blood Pressure: 118/72 Pulse: 64 Respirations: 18 Pulse Ox (%): 96 - Physical Exam General: Alert, In no apparent distress, Oriented x3, Cooperative HEENT: PERRLA, EOMI Neck: Supple Cardiovascular: No edema Gastrointestinal: No rebound, No guarding, Distended (better) Integumentary: No erythema, No warmth, No cyanosis Neurological: Normal speech - Studies Imagings Data: SBS reviewed with pt Medications List Reviewed: Yes Assessment And Plan - Plan diet oob Physician Review Additional Text: Impression: Abdominal pain, nausea and vomiting with diarrhea secondary to moderate mechanical small bowel obstruction Possible enteritis CT scan showing thickened wall of the esophagus likely GERD with esophagitis Diabetes mellitus type 2 controlled, A1c 5.7 Hypertension Hypothyroidism Obesity Plan: Patient remains NPO due to moderate mechanical small bowel obstruction. Patient did have gas and bowel movement this morning. This is a significant change since yesterday. Case discussed at length with surgery yesterday. Will order small bowel series today to further assess his obstruction. Hopefully improvement is noted. If improved will consider starting clear liquid diet if okay with surgery. If no significant improvement the patient may require surgical intervention. Will continue to monitor his diabetes, hypertension and hypothyroidism. Patient continues with medication IV. Will adjust IV fluids. Encourage ambulation. Encourage incentive spirometer. Continue monitor lab closely.
--- NOTE | 2018-02-05 12:29 | P.PN ---
Subjective Date of Service: 02/05/18 Primary Care Provider: None Chief Complaint: Small-bowel obstruction Subjective: Improving (passing gas and stool.) Physical Examination - Vital Signs Temperature: 98.0 F Blood Pressure: 118/72 Pulse: 64 Respirations: 18 Pulse Ox (%): 96 - Physical Exam General: Alert, In no apparent distress, Oriented x3, Cooperative HEENT: Atraumatic, Mucous membr. moist/pink Neck: Supple Respiratory: Clear to auscultation bilaterally, Normal air movement Cardiovascular: Normal pulses, Regular rate/rhythm Gastrointestinal: Normal bowel sounds, Soft and benign, Non-distended, No tenderness, No masses, No rebound, No guarding Musculoskeletal: No erythema, No tenderness, No warmth Integumentary: No tenderness/swelling, No erythema, No warmth, No cyanosis Neurological: Normal speech, Normal strength at 5/5 x4 extr, Normal tone, Normal affect Lymphatics: No axilla or inguinal lymphadenopathy - Studies Medications List Reviewed: Yes Assessment & Plan Discharge Plan: Home Plan to discharge in: 24 Hours Physician Review Additional Text: Impression: Abdominal pain, nausea and vomiting with diarrhea secondary to moderate mechanical small bowel obstruction Possible enteritis CT scan showing thickened wall of the esophagus likely GERD with esophagitis Diabetes mellitus type 2 controlled, A1c 5.7 Hypertension Hypothyroidism Obesity Plan: Abdominal pain resolved. Patient passing stool and gas. Moderate mechanical small bowel obstruction appears resolved. Case discussed with surgery. Will start with full liquid diet. Will advance as tolerated. If tolerates diet by tomorrow patient may be able to be discharged. No surgical intervention needed at this time. Continue IV antibiotic therapy. Patient with diabetes will continue monitor closely. Will provide sliding scale. Patient with hypertension and hypothyroidism. Will continue with medication. Continue with incentive spirometer and ambulation. I will turn the service over to Dr. King tomorrow. I will go over the plan of care with her. Time Spent Managing Pts Care (In Minutes): 55
[2018-02-05] MEDS: ENOXAPARIN 40 MG/0.4 ML SQ SCH (16:31)
[2018-02-05] MEDS ORDERED: KCL 20 MEQ/100 mL IVPB 20 MEQ/100 ML BAG IV SCH (20:00)
[2018-02-06] MEDS: METRONIDAZOLE 500mg IVPB 500 MG/100 ML BAG IV SCH ×2 (00:03→07:34)
[2018-02-06 05:48] LABS: Absolute Lymphocytes (CBC) 2.4 K/uL (0.7-4.9); Absolute Monocytes 0.6 K/uL (0.1-1.3); Absolute Neutrophil 4.4 K/uL (1.8-8.0); Basophils % 0.5 % (0-1.3); Eosinophils % 3.7 % (0-4.4); Hematocrit 38.1 % (39.6-49.0); Lymphocytes % 30.6 % (15.3-44.8); MCH 30.8 pg (27.0-35.0); MCV 85.2 fL (80-100); MPV 9.7 fL (7.6-11.3); Monocytes % 8.3 % (3.3-12.3); RBC Red Blood Cell Count 4.47 M/uL (4.33-5.43)
[2018-02-06 05:50] LABS: BUN Blood Urea Nitrogen 3 mg/dL (7-18); Bicarbonate 28 mmol/L (21-32); Glucose Level 112 mg/dL (74-106); Magnesium 1.9 mg/dL (1.8-2.4); Sodium Level 143 mmol/L (136-145)
[2018-02-06] MEDS: LEVOTHYROXINE SODIUM 100 MCG VIAL IV SCH (06:19)
[2018-02-06] MEDS: D5 0.45 NS 1,000 ML IV SCH (06:21)
[2018-02-06] MEDS: INSULIN -REGULAR HUMAN 50 UNIT/0.5 ML ML SQ SCH ×2 (07:30→11:30)
[2018-02-06] MEDS: CIPROFLOXACIN 400mg IV 400 MG/200 ML BAG IV SCH (07:35)
[2018-02-06] MEDS: PANTOPRAZOLE 40 MG INJ IVP SCH (07:36)
--- NOTE | 2018-02-07 06:42 | DS ---
Date of Discharge: 02/06/2018 Consultants: Dr. Hill with General Surgery. Procedures: None. Admitting Diagnoses: 1.Small bowel obstruction. 2.Diabetes mellitus type 2 with long-term use of insulin with hyperglycemia. 3.Essential hypertension. 4.Nicotine dependence with cigarette smoking. Discharge Diagnoses: 1.Abdominal pain, resolved. 2.Mechanical small bowel obstruction, resolving, tolerating full liquid diet. 3.Esophagitis. We will need outpatient esophagogastroduodenoscopy, likely secondary to gastroesopha geal reflux disease. We will discontinue on proton pump inhibitors. 4.Diabetes mellitus type 2 with hyperglycemia with long-term use of insulin. 5.Essential hypertension, stable. 6.Hypothyroidism, stable. 7.Obesity, BMI 33.7. Hospital Course: The patient is a 47-year-old male, who comes into the hospital with abdominal pain. CT scan was done, which showed some esophagitis and also small bowel obstruction. The patient was kept n.p.o. Stool studies were obtained as he was having diarrhea. C diff was negative. Fecal leuk ocyte did not show any WBCs. His white count was elevated initially, which normalized, likely had an enteritis. The patient did have hypokalemia, which was corrected. Urine culture showed no growth. The patient was seen by Dr. Hill with General surgery. Small bowel x-ray was repeated, showed m ultiple dilated small bowel loops. Small bowel series was done. The patient otherwise was doing wel l. He was tolerating his diet and was afebrile. Did not have any further pain, was able to ambulate . The patient was then cleared for discharge. Followup: The patient to follow up with primary care physician in 2-3 days. Return to ER for worsen ing condition. Follow up with General Surgeon, Dr. Hill as needed. Total time spent discharging the patient was 37 minutes. Physical Examination: General: Awake, alert, oriented x3. No acute distress. CV: S1, S2. No murmurs. Respiratory: Moving air well bilaterally. Abdomen: Soft, nontender, nondistended. Positive bowel sounds. Extremities: No clubbing, cyanosis, edema. Neurologic: Nonfocal. SA/MODL Voice ID: [id number] Report ID: [id number]
--- NOTE | 2018-02-07 08:42 | P.PN ---
Subjective Date of Service: 02/06/18 Primary Care Provider: None Chief Complaint: Small-bowel obstruction Subjective: Tolerating diet, Ambulating, Improving Review of Systems 10-point ROS is otherwise unremarkable Physical Examination - Vital Signs Temperature: 97 F Blood Pressure: 131/71 Pulse: 66 Respirations: 20 Pulse Ox (%): 96 - Physical Exam General: Alert, In no apparent distress, Oriented x3 HEENT: PERRLA, EOMI Neck: Supple Cardiovascular: No edema, Normal pulses Gastrointestinal: Soft and benign, Non-distended, No tenderness, No rebound, No guarding, Other (having BM, passing gas) Musculoskeletal: No erythema, No tenderness, No warmth - Studies Medications List Reviewed: Yes Assessment And Plan - Plan diet oob Pt to continue bowel obstruction work up with his gastroenterologys darlin that may include endoscopy soft diet Physician Review Additional Text: Impression: Abdominal pain, nausea and vomiting with diarrhea secondary to moderate mechanical small bowel obstruction Possible enteritis CT scan showing thickened wall of the esophagus likely GERD with esophagitis Diabetes mellitus type 2 controlled, A1c 5.7 Hypertension Hypothyroidism Obesity Plan: Abdominal pain resolved. Patient passing stool and gas. Moderate mechanical small bowel obstruction appears resolved. Case discussed with surgery. Will start with full liquid diet. Will advance as tolerated. If tolerates diet by tomorrow patient may be able to be discharged. No surgical intervention needed at this time. Continue IV antibiotic therapy. Patient with diabetes will continue monitor closely. Will provide sliding scale. Patient with hypertension and hypothyroidism. Will continue with medication. Continue with incentive spirometer and ambulation. I will turn the service over to Dr. King tomorrow. I will go over the plan of care with her.
== END 2018-02-06 14:29 | disposition home or self-care (01) | DRG 390 ==
LOC: ER 15:52 → ERHOLD 18:54 → 2ND 20:14 → OBSVTOIN 02-01 09:08
PROVIDERS: ADMIT Internal Medicine; ATTEND Internal Medicine
DX: K56.609 Unspecified intestinal obstruction, unspecified as to partial versus complete obstruction (principal); K21.0 Gastro-esophageal reflux disease with esophagitis; E11.65 Type 2 diabetes mellitus with hyperglycemia; Z79.4 Long term (current) use of insulin; I10 Essential (primary) hypertension; E03.9 Hypothyroidism, unspecified; E66.9 Obesity, unspecified; Z68.33 Body mass index [BMI] 33.0-33.9, adult; K52.9 Noninfective gastroenteritis and colitis, unspecified; E87.6 Hypokalemia; F17.210 Nicotine dependence, cigarettes, uncomplicated
CPT/HCPCS: 36415; 71045; 74177; 74250; 80048; 80076; 81003; 82550; 82553; 82962; 83036; 83690; 83735; 83880; 84132; 84484; 85025; 85610; 85730; 87045; 87046; 87086; 87088; 87493; 89055; 93005; 96365; 96367; 96375; 99285; C9113; J0744; J1650; J2270; J2405; J3010; J7030; Q9967

== ENCOUNTER 2020-06-01 05:54 | Inpatient (IN) | payer BC ==
[2020-06-01] MEDS ORDERED: NA CHLORIDE 0.9% 1,000 ML ONE (07:04)
[2020-06-01 07:06] LABS: Absolute Lymphocytes (CBC) 1.2 K/uL (0.7-4.9); Basophils % 0.2 % (0-1.3); Hematocrit 41.7 % (39.6-49.0); Lymphocytes % 12.3 % (15.3-44.8); MPV 10.8 fL (7.6-11.3); RBC Red Blood Cell Count 4.74 M/uL (4.33-5.43)
[2020-06-01 07:17] LABS: Protime INR 1.08
--- NOTE | 2020-06-01 07:57 | EDPHYS ---
Physician Documentation [facility] Name: Get Sloan Age: 50 yrs Sex: Male : 1970 Arrival Date: 06/01/2020 Time: 05:57 Bed 24 Private MD: ED Physician Fahad Dai HPI: 06/01 07:50 This 50 yrs old Male presents to ER via Ambulatory with complaints of Cough, dio COVID +. 07:50 The patient or guardian reports airway noise, cough, difficulty breathing. Onset: The dio symptoms/episode began/occurred 3 day(s) ago. Severity of symptoms: At their worst the symptoms were moderate, this morning, in the emergency department the symptoms are actually worse, mildly. Modifying factors: The symptoms are alleviated by cool environment, the symptoms are aggravated by exertion, talking. Associated signs and symptoms: Pertinent positives: rhinorrhea, sore throat. The patient has not experienced similar symptoms in the past. Historical: - Allergies: 06:21 No Known Allergies; lp1 - Home Meds: 06:34 metformin 500 mg Oral Tb24 1 tab once daily [Active]; atorvastatin 20 mg oral tab 1 tab lp1 once daily [Active]; allopurinol 300 mg Oral tab 1 tab once daily [Active]; lisinopril 20 mg Oral tab 1 tab once daily [Active]; levothyroxine 175 mcg tab 1 tab once daily [Active]; - PMHx: 06:21 Diabetes - IDDM; Hypertension; Hypothyroidism; lp1 - PSHx: 06:21 Cholecystectomy; Eye surgery; R knee; lp1 - Immunization history:: Adult Immunizations up to date. - Social history:: Smoking status: Patient denies any tobacco usage or history of. ROS: 07:51 Eyes: Negative for injury, pain, redness, and discharge, ENT: Negative for injury, dio pain, and discharge, Neck: Negative for injury, pain, and swelling, Cardiovascular: Negative for chest pain, palpitations, and edema, Abdomen/GI: Negative for abdominal pain, nausea, vomiting, diarrhea, and constipation, Back: Negative for injury and pain, : Negative for injury, bleeding, discharge, and swelling, MS/Extremity: Negative for injury and deformity, Skin: Negative for injury, rash, and discoloration, Neuro: Negative for headache, weakness, numbness, tingling, and seizure, Psych: Negative for depression, anxiety, suicide ideation, homicidal ideation, and hallucinations, Allergy/Immunology: Negative for hives, rash, and allergies, Endocrine: Negative for neck swelling, polydipsia, polyuria, polyphagia, and marked weight changes, Hematologic/Lymphatic: Negative for swollen nodes, abnormal bleeding, and unusual bruising. 07:51 Constitutional: Positive for body aches, fatigue, fever, malaise. 07:51 Cardiovascular: Positive for palpitations. 07:51 Respiratory: Positive for cough, dyspnea on exertion, shortness of breath, at rest. Exam: 07:51 Head/Face: Normocephalic, atraumatic. Eyes: Pupils equal round and reactive to light, dio extra-ocular motions intact. Lids and lashes normal. Conjunctiva and sclera are non-icteric and not injected. Cornea within normal limits. Periorbital areas with no swelling, redness, or edema. ENT: Nares patent. No nasal discharge, no septal abnormalities noted. Tympanic membranes are normal and external auditory canals are clear. Oropharynx with no redness, swelling, or masses, exudates, or evidence of obstruction, uvula midline. Mucous membranes moist. Neck: Trachea midline, no thyromegaly or masses palpated, and no cervical lymphadenopathy. Supple, full range of motion without nuchal rigidity, or vertebral point tenderness. No Meningismus. Chest/axilla: Normal chest wall appearance and motion. Nontender with no deformity. No lesions are appreciated. Cardiovascular: Regular rate and rhythm with a normal S1 and S2. No gallops, murmurs, or rubs. Normal PMI, no JVD. No pulse deficits. Abdomen/GI: Soft, non-tender, with normal bowel sounds. No distension or tympany. No guarding or rebound. No evidence of tenderness throughout. Back: No spinal tenderness. No costovertebral tenderness. Full range of motion. Male : Normal genitalia with no discharge or lesions. Skin: Warm, dry with normal turgor. Normal color with no rashes, no lesions, and no evidence of cellulitis. MS/ Extremity: Pulses equal, no cyanosis. Neurovascular intact. Full, normal range of motion. Neuro: Awake and alert, GCS 15, oriented to person, place, time, and situation. Cranial nerves II-XII grossly intact. Motor strength 5/5 in all extremities. Sensory grossly intact. Cerebellar exam normal. Normal gait. Psych: Awake, alert, with orientation to person, place and time. Behavior, mood, and affect are within normal limits. 07:51 Constitutional: The patient appears febrile, in obvious distress, mildly distressed. 07:51 Respiratory: mild respiratory distress is noted, Respirations: labored breathing, that is mild, Breath sounds: decreased breath sounds, that are mild, are scattered, rhonchi, that are moderate, stridor, is not appreciated, + upper airway congestion. Respiratory rate: 25 07:51 Musculoskeletal/extremity: DVT Exam: No signs of deep vein thrombosis. no pain, no swelling, no tenderness, negative Homans' sign noted on exam, no appreciated bluish discoloration, no erythema, no increased warmth. 07:59 ECG was reviewed by the Attending Physician. [facility] Vital Signs: 06:21 BP 124 / 77; Pulse 109; Resp 22; Temp 100(O); Pulse Ox 89% on R/A; Weight 113.4 kg (R); lp1 Height 5 ft. 10 in. (177.80 cm); 06:29 Pulse Ox 92% on 3 lpm NC; lp1 07:00 BP 122 / 73; Pulse 97; Resp 25; Pulse Ox 93% on 3 lpm NC; bp 08:48 BP 114 / 61; Pulse 85; Resp 35 S; Pulse Ox 95% on 2 lpm NC; jl7 09:00 Temp 98.9; jl7 12:00 BP 109 / 62; Pulse 73; Resp 32; Pulse Ox 94% on 3 lpm NC; jl7 06:21 Body Mass Index 35.87 (113.40 kg, 177.80 cm) [facility] MDM: 07:24 Patient medically screened. [facility] 07:53 Differential diagnosis: asthma, Bronchitis CHF exacerbation, Chronic Obstructive dio Pulmonary Disease pneumonia, pulmonary edema, Pulmonary Embolism reactive airway disease, Sepsis Unstable Angina. Antibiotic administration: Rocephin and Zithromax given. The patient's Wells Deep Vein Thrombosis Score was calculated as follows: Total Score: 0-2 Pts- Low Risk. Differential Diagnosis: Bronchitis Influenza Upper Respiratory Infection Pharyngitis Asthma Exacerbation Pneumonia. The patient's pulmonary embolism risk score was calculated as follows: Total Score: 0-2 points. This patient was found to be at low risk for a pulmonary embolism by using the Well's assessment criteria. Immunization status:. Data reviewed: vital signs, nurses notes, lab test result(s), EKG, radiologic studies, CT scan, plain films. 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 Test interpretation: by ED physician or midlevel provider: ECG, plain radiologic studies. 06/01 06:35 Order name: Blood Culture Adult (2) 4 06/01 06:35 Order name: BMP 4 06/01 06:35 Order name: C-Reactive Protein tw4 06/01 06:35 Order name: CBC with Diff; Complete Time: 07:31 4 06/01 06:35 Order name: COVID-19 tw4 06/01 06:35 Order name: D-Dimer; Complete Time: 07:31 tw4 06/01 06:35 Order name: Ferritin 4 06/01 06:35 Order name: Flu 4 06/01 06:35 Order name: Lactate; Complete Time: 07:31 tw4 06/01 06:35 Order name: LFT's [facility] 06/01 06:35 Order name: Lipase 4 06/01 06:35 Order name: Procalcitonin 4 06/01 06:35 Order name: PT-INR; Complete Time: 07:31 tw4 06/01 06:35 Order name: Ptt, Activated; Complete Time: 07:31 tw4 06/01 06:24 Order name: CXR XRAY 4 06/01 06:35 Order name: Strep [facility] 06/01 06:35 Order name: Troponin (emerg Dept Use Only) [facility] 06/01 06:35 Order name: Urine Microscopic Only tw4 06/01 07:00 Order name: Glucose, Ancillary Testing; Complete Time: 07:31 EDIN 06/01 07:34 Order name: CT Chest For PE Angio dio 06/01 08:30 Order name: CREATININE WHOLE BLOOD EDIN 06/01 14:47 Order name: Urine Dipstick--Ancillary (enter results) bd 06/01 15:05 Order name: Urine Dipstick-Ancillary EDIN 06/01 18:23 Order name: Glucose, Ancillary Testing EDIN 06/01 21:17 Order name: Glucose, Ancillary Testing EDIN 06/01 06:35 Order name: EKG; Complete Time: 06:37 06/01 06:35 Order name: Cardiac monitoring; Complete Time: 06:42 06/01 06:35 Order name: Droplet/Contact Precautions; Complete Time: 06:42 06/01 06:35 Order name: EKG - Nurse/Tech; Complete Time: 06:51 06/01 06:35 Order name: IV Start; Complete Time: 06:51 06/01 06:35 Order name: Labs collected and sent; Complete Time: 06:51 06/01 06:35 Order name: O2 Per Protocol; Complete Time: 06:42 06/01 06:35 Order name: O2 Sat Monitoring; Complete Time: 06:42 EC:59 Rate is 98 beats/min. Rhythm is regular. QRS [place] is Normal. [place] interval is normal. QRS dio interval is normal. QT interval is normal. No Q waves. T waves are Normal. No ST changes noted. Clinical impression: NSR w/ Non-specific ST/T Changes and No evidence of ischemia. Interpreted by me. Reviewed by me. Administered Medications: 06:48 Drug: NS 0.9% 1000 ml Route: IV; Rate: 1 bolus; Site: left forearm; rr5 07:30 Follow up: Response: No adverse reaction; IV Status: Completed infusion; IV Intake: jl7 1000ml 07:12 CANCELLED (Inappropriate at this time): NS 0.9% (30 ml/kg) 30 ml/kg IV at bolus once; rr5 Sepsis Protocol 08:00 Drug: Tylenol 1000 mg Route: PO; 09:00 Follow up: Temp 98.9; Response: No adverse reaction; Temperature is decreased 7 08:00 Drug: Aspirin 81 mg Route: PO; jl7 09:00 Follow up: Response: No adverse reaction jl7 08:30 Drug: Decadron - Dexamethasone 10 mg Route: IVP; Site: left wrist; jl7 09:00 Follow up: Response: No adverse reaction 08:35 Drug: Rocephin 1 grams Route: IV; Rate: per protocol; Site: left wrist; jl7 08:38 Follow up: Response: No adverse reaction; IV Status: Completed infusion 7 08:40 Drug: Zithromax 500 mg Route: IVPB; Infused Over: 1 hrs; Site: left wrist; jl7 09:40 Follow up: Response: No adverse reaction; IV Status: Completed infusion 08:40 Drug: Pepcid 40 mg Route: IVP; Site: left wrist; jl7 09:00 Follow up: Response: No adverse reaction jl7 08:41 Drug: Lovenox 100 mg Route: Sub-Q; Site: abdomen; jl7 09:00 Follow up: Response: No adverse reaction jl7 08:43 Drug: Albuterol HFA Inhaler 4 puffs Route: Inhalation; 7 09:00 Follow up: Response: No adverse reaction jl7 Disposition: 08:00 Critical Care:. [facility] Disposition: 06/01/20 07:56 Hospitalization ordered by Meño Curtis for Inpatient Admission. Preliminary diagnosis are Hypoxemia, SARS-associated coronavirus as the cause of diseases classified elsewhere - Covid 19, Other viral pneumonia - multifocal pna, left greater than right, Type 1 diabetes mellitus, Essential (primary) hypertension. - Bed requested for Telemetry/MedSurg (Inpatient). - Status is Inpatient Admission. sg - Condition is Fair. - Problem is new. - Symptoms have improved. Critical care time excluding procedures: 08:00 Critical care time: Bedside Care: 20 minutes, Consultation: 10 minutes. Total time: 30 dio minutes Signatures: Dispatcher [employer] EDShelly Rain, RN RN Ashlee Rodrigues RN RN Guillermo Piedra RN Fahad Moreno MD MD cha Pena, Laura, RN RN lp1 Anahy Isaac RN RN jl7 Garth Merchant MD MD 4 Efrain Powers, RN RN rr5 Corrections: (The following items were deleted from the chart) 06:42 06:35 Document PUI# ordered. tw4 lp1 06:42 06:35 [facility] [phone]/ ordered. tw4 lp1 07:10 06:37 Chest Single View+RAD.RAD.BRZ ordered. EDIN EDMS 07:12 07:11 NS 0.9% (30 ml/kg) 30 ml/kg IV at bolus once; Sepsis Protocol ordered. rr5 rr5 07:15 06:35 Deleon ordered. tw4 rr5 09:52 07:56 Hospitalization Ordered by Meño Curtis for Inpatient Admission. Preliminary dio diagnosis is Hypoxemia; SARS-associated coronavirus as the cause of diseases classified elsewhere - Covid 19; Other viral pneumonia - multifocal pna; Type 1 diabetes mellitus; Essential (primary) hypertension. Bed requested for Telemetry/MedSurg (Inpatient). Status is Inpatient Admission. Condition is Fair. Problem is new. Symptoms have improved. dio 13:27 09:52 06/01/2020 07:56 Hospitalization Ordered by Meño Curtis for Inpatient dm5 Admission. Preliminary diagnosis is Hypoxemia; SARS-associated coronavirus as the cause of diseases classified elsewhere - Covid 19; Other viral pneumonia - multifocal pna, left greater than right; Type 1 diabetes mellitus; Essential (primary) hypertension. Bed requested for Telemetry/MedSurg (Inpatient). Status is Inpatient Admission. Condition is Fair. Problem is new. Symptoms have improved. dio 21:39 13:27 06/01/2020 07:56 Hospitalization Ordered by Meño Curtis for Inpatient mw Admission. Preliminary diagnosis is Hypoxemia; SARS-associated coronavirus as the cause of diseases classified elsewhere - Covid 19; Other viral pneumonia - multifocal pna, left greater than right; Type 1 diabetes mellitus; Essential (primary) hypertension. Bed requested for [facility] ER HOLD. Status is Inpatient Admission. Condition is Fair. Problem is new. Symptoms have improved. dm5 06/02 00:02 06/01 21:39 06/01/2020 07:56 Hospitalization Ordered by Meño Curtis for Inpatient sg Admission. Preliminary diagnosis is Hypoxemia; SARS-associated coronavirus as the cause of diseases classified elsewhere - Covid 19; Other viral pneumonia - multifocal pna, left greater than right; Type 1 diabetes mellitus; Essential (primary) hypertension. Bed requested for Telemetry/MedSurg (Inpatient). Status is Inpatient Admission. Condition is Fair. Problem is new. Symptoms have improved. mw
--- NOTE | 2020-06-01 07:57 | ER ---
Nurse's Notes [facility] Name: Get Sloan Age: 50 yrs Sex: Male : 1970 Arrival Date: 06/01/2020 Time: 05:57 Bed 24 Private MD: Diagnosis: Hypoxemia;SARS-associated coronavirus as the cause of diseases classified elsewhere-Covid 19;Other viral pneumonia-multifocal pna, left greater than right;Type 1 diabetes mellitus;Essential (primary) hypertension Presentation: 06/01 06:15 Chief complaint: Patient states: Diagnosed with COVID on 05/29/2020 at [place], s/s of lp1 persistent dry cough, loss of taste and smell that began 05/26/2020; Reports continued persistent cough that is causing GARAY, pain to chest; Given prescriptions of Albuterol Inh, Dexamethasone, Azithromycin. Coronavirus screen: Client reports previous positive COVID test result. Date of collection: May 29, 2020. Ebola Screen: No symptoms or risks identified at this time. Onset of symptoms was May 26, 2020. 06:15 Method Of Arrival: Ambulatory lp1 06:15 Acuity: ANTONIO 2 lp1 06:21 Initial Sepsis Screen: Does the patient meet any 2 criteria? RR > 20 per min. HR > 90 lp1 bpm. Does the patient have a suspected source of infection? Yes: Other: COVID POSITIVE. Risk Assessment: Do you want to hurt yourself or someone else? Patient reports no desire to harm self or others. Historical: - Allergies: 06:21 No Known Allergies; lp1 - Home Meds: 06:34 metformin 500 mg Oral Tb24 1 tab once daily [Active]; atorvastatin 20 mg oral tab 1 tab lp1 once daily [Active]; allopurinol 300 mg Oral tab 1 tab once daily [Active]; lisinopril 20 mg Oral tab 1 tab once daily [Active]; levothyroxine 175 mcg tab 1 tab once daily [Active]; - PMHx: 06:21 Diabetes - IDDM; Hypertension; Hypothyroidism; lp1 - PSHx: 06:21 Cholecystectomy; Eye surgery; R knee; lp1 - Immunization history:: Adult Immunizations up to date. - Social history:: Smoking status: Patient denies any tobacco usage or history of. Screenin:34 Abuse screen: Denies threats or abuse. Denies injuries from another. Nutritional lp1 screening: No deficits noted. Tuberculosis screening: No symptoms or risk factors identified. Fall Risk None identified. Assessment: 06:48 General: Appears in no apparent distress. comfortable, Behavior is calm, cooperative. mg2 06:49 Pain: Complains of pain in chest Pain does not radiate. Pain currently is 5 out of 10 mg2 on a pain scale. Quality of pain is described as aching, Pain began gradually. Neuro: Level of Consciousness is awake, alert, obeys commands, Oriented to person, place, time, situation. Cardiovascular: Capillary refill < 3 seconds Patient's skin is warm and dry. Respiratory: Airway is patent Respiratory effort is even, unlabored, Respiratory pattern is regular, symmetrical. GI:. : No signs and/or symptoms were reported regarding the genitourinary system. EENT: Reports loss of smell and taste. Derm: Skin is intact, is healthy with good turgor, Skin is pink, warm \T\ dry. normal. Musculoskeletal: Circulation, motion, and sensation intact. Capillary refill < 3 seconds. 06:55 Reassessment: +ED provider informed patient is covid positive last May 29, 2020. if rr5 the patient can provide the result no need to do strep, flu and covid. to start IVF NS 1 liter bolus. 07:00 Reassessment: RECD REPORT FROM MARIYA SORTO. 50YO HM P/W COUGH, COVID +. PT TBS BY bp PROVIDER. 08:00 Reassessment: Patient appears in no apparent distress at this time. No changes from jl7 previously documented assessment. Patient and/or family updated on plan of care and expected duration. Pain level reassessed. Patient is alert, oriented x 3, equal unlabored respirations, skin warm/dry/pink. 09:00 Reassessment: Patient appears in no apparent distress at this time. No changes from jl7 previously documented assessment. Patient and/or family updated on plan of care and expected duration. Pain level reassessed. Patient is alert, oriented x 3, equal unlabored respirations, skin warm/dry/pink. 10:00 Reassessment: Patient appears in no apparent distress at this time. No changes from jl7 previously documented assessment. Patient and/or family updated on plan of care and expected duration. Pain level reassessed. Patient is alert, oriented x 3, equal unlabored respirations, skin warm/dry/pink. 11:00 Reassessment: Patient appears in no apparent distress at this time. No changes from jl7 previously documented assessment. Patient and/or family updated on plan of care and expected duration. Pain level reassessed. Patient is alert, oriented x 3, equal unlabored respirations, skin warm/dry/pink. 12:00 Reassessment: Patient appears in no apparent distress at this time. No changes from jl7 previously documented assessment. Patient and/or family updated on plan of care and expected duration. Pain level reassessed. Patient is alert, oriented x 3, equal unlabored respirations, skin warm/dry/pink. 18:06 Reassessment: : CASSIA [phone]. bp Vital Signs: 06:21 BP 124 / 77; Pulse 109; Resp 22; Temp 100(O); Pulse Ox 89% on R/A; Weight 113.4 kg (R); lp1 Height 5 ft. 10 in. (177.80 cm); 06:29 Pulse Ox 92% on 3 lpm NC; lp1 07:00 BP 122 / 73; Pulse 97; Resp 25; Pulse Ox 93% on 3 lpm NC; bp 08:48 BP 114 / 61; Pulse 85; Resp 35 S; Pulse Ox 95% on 2 lpm NC; jl7 09:00 Temp 98.9; jl7 12:00 BP 109 / 62; Pulse 73; Resp 32; Pulse Ox 94% on 3 lpm NC; jl7 06:21 Body Mass Index 35.87 (113.40 kg, 177.80 cm) lp1 ED Course: 05:57 Patient arrived in ED. ag3 06:20 Triage completed. lp1 06:20 Arm band placed on. lp1 06:41 Garth Merchant MD is Attending Physician. tw4 06:48 Rick Gan, NOREEN is Primary Nurse. mg2 06:48 No provider procedures requiring assistance completed. Inserted saline lock: 20 gauge mg2 in left forearm, using aseptic technique. Blood collected. 06:51 Patient has correct armband on for positive identification. library monitor on. Pulse mg2 ox on. NIBP on. Door closed. 07:11 CXR XRAY In Process Unspecified. EDMS 07:13 Fahad Dai MD is Attending Physician. tw4 07:55 Meño Curtis is Hospitalizing Provider. dio 08:09 CT Chest For PE Angio In Process Unspecified. EDMS 09:17 Primary Nurse role handed off by Rick Gan RN bp 09:17 Luis Malik, RN is Primary Nurse. bp 09:26 Primary Nurse role handed off by Luis Malik, NOREEN jl7 09:26 Anahy Isaac, NOREEN is Primary Nurse. jl7 12:00 Patient admitted, IV remains in place. intact, No redness/swelling at site. jl7 18:51 Report given to NOREEN Draper. jl7 Administered Medications: 06:48 Drug: NS 0.9% 1000 ml Route: IV; Rate: 1 bolus; Site: left forearm; rr5 07:30 Follow up: Response: No adverse reaction; IV Status: Completed infusion; IV Intake: jl7 1000ml 07:12 CANCELLED (Inappropriate at this time): NS 0.9% (30 ml/kg) 30 ml/kg IV at bolus once; rr5 Sepsis Protocol 08:00 Drug: Tylenol 1000 mg Route: PO; jl7 09:00 Follow up: Temp 98.9; Response: No adverse reaction; Temperature is decreased jl7 08:00 Drug: Aspirin 81 mg Route: PO; jl7 09:00 Follow up: Response: No adverse reaction jl7 08:30 Drug: Decadron - Dexamethasone 10 mg Route: IVP; Site: left wrist; jl7 09:00 Follow up: Response: No adverse reaction jl7 08:35 Drug: Rocephin 1 grams Route: IV; Rate: per protocol; Site: left wrist; jl7 08:38 Follow up: Response: No adverse reaction; IV Status: Completed infusion jl7 08:40 Drug: Zithromax 500 mg Route: IVPB; Infused Over: 1 hrs; Site: left wrist; jl7 09:40 Follow up: Response: No adverse reaction; IV Status: Completed infusion jl7 08:40 Drug: Pepcid 40 mg Route: IVP; Site: left wrist; jl7 09:00 Follow up: Response: No adverse reaction jl7 08:41 Drug: Lovenox 100 mg Route: Sub-Q; Site: abdomen; jl7 09:00 Follow up: Response: No adverse reaction jl7 08:43 Drug: Albuterol HFA Inhaler 4 puffs Route: Inhalation; 7 09:00 Follow up: Response: No adverse reaction jl7 Intake: 07:30 IV: 1000ml; Total: 1000ml. 7 Outcome: 07:56 Decision to Hospitalize by Provider. [facility] 12:00 Admitted to ER Hold. Please see [facility] for further documentation. [facility] 12:00 Condition: stable 12:00 Discharge instructions given to patient, family, Instructed on the need for admit, Demonstrated understanding of instructions. 06/02 00:02 Patient left the ED. sg Signatures: Dispatcher [employer] EDMS Guillermo Montalvo, RN RN sg Fahad Dai MD MD cha Pena, Laura RN RN lp1 Anahy Isaac RN RN jl7 Luis Malik RN RN bp Garth Merchant MD MD tw4 Rick Gan RN RN [facility] Adrianne Lozada Raymond, RN RN rr5 Corrections: (The following items were deleted from the chart) 06/01 06:29 06:15 Acuity: ANTONIO 3 lp1 lp1
[2020-06-01 08:12] LABS: ALT/SGPT 48 U/L (12-78); AST/SGOT 30 U/L (15-37); Albumin 3.4 g/dL (3.4-5.0); Alkaline Phosphatase 80 U/L (45-117); BUN Blood Urea Nitrogen 11 mg/dL (7-18); Bicarbonate 22 mmol/L (21-32); Bilirubin Direct 0.1 mg/dL (0-0.2); Bilirubin Total 0.6 mg/dL (0.2-1.0); Ferritin 250.4 ng/mL (26-388); Glucose Level 113 mg/dL (74-106); Lipase 118 U/L (73-393); Potassium 3.5 mmol/L (3.5-5.1); Protein, Total 7.9 g/dL (6.4-8.2); Sodium Level 137 mmol/L (136-145); Troponin (Emerg Dept Use Only) < 0.02 ng/mL (0.0-0.045)
[2020-06-01] MEDS ORDERED: ASPIRIN 81 MG CHEWABLE TABLET ONE (08:13)
[2020-06-01] MEDS ORDERED: dexAMETHasone 10 MG/ML VIAL ONE (08:13)
[2020-06-01] MEDS ORDERED: ACETAMINOPHEN 500 MG TAB ONE (08:14)
[2020-06-01] MEDS ORDERED: FAMOTIDINE 20 MG/2 ML VIAL IV ONE ×3 (08:14→21:49)
[2020-06-01] MEDS ORDERED: CEFTRIAXONE/SWI 1gm 1 GM/10 ML SYR ONE (08:14)
--- NOTE | 2020-06-01 08:25 | RAD REPORT ---
EXAM DESCRIPTION: CT - Chest For Pe Angio - 06/01/2020 8:10 am CLINICAL HISTORY: Chest pain. DYSPNEA COMPARISON: No comparisons TECHNIQUE: CT angiogram of the pulmonary arteries was performed with MIP. All CT scans are performed using dose optimization technique as appropriate and may include automated exposure control or mA/KV adjustment according to patient size. FINDINGS: No gross evidence of pulmonary thromboembolism. No acute aortic finding demonstrated. Moderate airspace opacities are present in both lungs likely representing pneumonia. No significant pericardial or pleural fluid. No concerning bony finding. Cholecystectomy clips. IMPRESSION: No gross evidence of pulmonary thromboembolism. Moderate airspace opacities in both lungs suggests bilateral pneumonia.
[2020-06-01] MEDS ORDERED: ENOXAPARIN 100 MG/ML SYR SQ ONE (08:43)
--- NOTE | 2020-06-01 08:59 | RAD REPORT ---
EXAM DESCRIPTION: RAD - Chest Single View - 06/01/2020 7:11 am CLINICAL HISTORY: COUGH Chest pain. COMPARISON: Chest Single View dated 01/31/2018; Chest For Pe Angio dated 06/01/2020 FINDINGS: Portable technique limits examination quality. Moderate bilateral pulmonary opacities are present, slightly worse on the left. The heart is normal i n size. No displaced fractures. IMPRESSION: Moderate bilateral pulmonary opacities are noted, slightly worse on the left. The findin gs likely represent pneumonia.
[2020-06-01] MEDS ORDERED: AZITHROMYCIN IV 500 MG in NA CHLORIDE 0.9% 250 ML IVPB ONE (09:00)
[2020-06-01] MEDS ORDERED: ALBUTEROL INHALER 60 PUFF/8 GM IH ONE (09:21)
--- NOTE | 2020-06-01 10:28 | EKG ---
Test Date: 2020-06-01 Test Time: 06:38:21 [employer]: RR MEASUREMENT RESULTS: Intervals: Rate: 98 CT: 152 QRSD: 96 QT: 346 QTc: 441 [place]: P: 62 CT: 152 QRS: 47 T: 38 INTERPRETIVE STATEMENTS: Normal sinus rhythm Incomplete right bundle branch block Borderline ECG Compared to ECG 01/31/2018 17:31:42 Incomplete right bundle-branch block now present Electronically Signed On 06-01-20 10:27:40 [employer]ERMOCOU[employer] TE[employer] by Ronaldo Andre
--- NOTE | 2020-06-01 13:39 | P.HP ---
Certification for Inpatient Patient admitted to: Observation With expected LOS: <2 Midnights Practitioner: I am a practitioner with admitting privileges, knowledge of patient current condition, hospital course, and medical plan of care. Services: Services provided to patient in accordance with Admission requirements found in Title 42 Section 412.3 of the Code of Federal Regulations Patient History Date of Service: 06/01/20 Reason for admission: Shortness of breath and cough History of Present Illness: 50-year-old obese gentleman with a history of hypertension, diabetes mellitus and hyperlipidemia presented to the emergency department with a complaint of shortness of breath and coughing. He tested positive for COVID 19 four days ago. Patient denied any fever. States that cough is nonproductive. He reports shortness of breath at rest and with exertion. CTA thorax done in the emergency department showed moderate bilateral infiltrates. Patient was requiring 2 L of oxygen to maintain oxygen saturation greater than 90%. Patient is hospitalized for further evaluation and management. Allergies No Known Allergies Allergy (Verified 01/31/18 21:47) Home Medications: Amlodipine [Norvasc*] 1 tab PO DAILY 01/31/18 Levothyroxine Sodium 1 tab PO DAILY 01/31/18 Metformin ER [Glucophage ER*] 1 tab PO BID 01/31/18 Semaglutide [Ozempic] 1 mg SQ SEECOM 01/31/18 lisinopriL [Prinivil*] 1 tab PO DAILY 01/31/18 Pantoprazole [Protonix Tab*] 40 mg PO DAILY #30 tab 02/06/18 - Past Medical/Surgical History Diabetic: Yes -: Diabetes mellitus types 2 -: Hypertension -: Cholecystectomy -: Left side -: Right knee - Family History Father -: Hypertension, Diabetes Mother -: Hypertension, Diabetes - Social History Alcohol use: Yes CD- Drugs: No Caffeine use: Yes Review of Systems Other: Except as documented, all other systems reviewed and negative. Physical Examination - Physical Exam General: Alert, In no apparent distress, Obese HEENT: Atraumatic, PERRLA, Mucous membr. moist/pink, EOMI, Sclerae nonicteric Neck: Supple, JVD not distended Respiratory: Clear to auscultation bilaterally, Normal air movement Cardiovascular: No edema, Regular rate/rhythm, Normal S1 S2 Gastrointestinal: Normal bowel sounds, Soft and benign, No tenderness Musculoskeletal: No swelling, No tenderness Integumentary: No rashes, No erythema Neurological: Normal speech, Normal strength at 5/5 x4 extr, Cranial nerves 3-12 intact - Studies Laboratory Data (last 24 hrs) 06/01/20 06:44: PT 12.7 H, INR 1.08, APTT 24.9 06/01/20 06:44: WBC 9.4, Hgb 14.2, Hct 41.7, Plt Count 117 L 06/01/20 06:44: Sodium 137, Potassium 3.5, BUN 11, Creatinine 0.73, Glucose 113 H, Total Bilirubin 0.6, AST 30, ALT 48, Alkaline Phosphatase 80, Lipase 118 Assessment and Plan - Problems (Diagnosis) (1) Pneumonia due to COVID-19 virus Current Visit: Yes Status: Acute (2) Acute respiratory failure with hypoxia Current Visit: Yes Status: Acute (3) Diabetes mellitus Onset Date: 02/01/18 Current Visit: No Status: Acute (4) Hypertension Onset Date: 02/01/18 Current Visit: No Status: Acute Qualifiers: - Plan Place under observation. Start IV Solu-Medrol. Vitamin [id number] and C. Zinc supplementation. Monitor inflammatory markers. Supplemental oxygen and titrate. Insulin sliding scale for glucose management. Hold metformin due to IV contrast. Watch for steroid induced hyperglycemia. Arranged for home oxygen for possible discharge in a.m. - Advance Directives Does patient have a Living Will: No Does patient have a Durable POA for Healthcare: No
[2020-06-01 15:04] LABS: Urine Blood NEGATIVE (NEG); Urine Glucose NEGATIVE (NEG); Urine Protein 1+ (NEG); Urine pH 5.5 (5.0-7.0)
[2020-06-01 15:21] LABS: Urine Bacteria <20 /HPF (NONE SEEN); Urine RBC <5 /HPF (NONE SEEN)
[2020-06-01] MEDS ORDERED: GLUCAGON 1 MG/VIAL IM PRN (18:02)
[2020-06-01] MEDS: FAMOTIDINE 20 MG/2 ML VIAL IV SCH ×2 (18:02→21:00)
[2020-06-01] MEDS: INSULIN -REGULAR HUMAN 50 UNIT/0.5 ML ML SQ SCH ×2 (18:02→21:00)
[2020-06-01] MEDS ORDERED: D50W 25 GM/50 ML VIAL IV PRN (18:10)
[2020-06-01] MEDS: METHYLPREDNISOLONE 125 MG INJ IV SCH (18:39)
[2020-06-01] MEDS ORDERED: INSULIN -REGULAR HUMAN 50 UNIT/0.5 ML ML ONE (18:42)
[2020-06-01] MEDS ORDERED: ENOXAPARIN 40 MG/0.4 ML SQ ONE (18:43)
[2020-06-01] MEDS ORDERED: METHYLPREDNISOLONE 125 MG INJ ONE (18:43)
[2020-06-01] MEDS: BENZONATATE 100 MG CAP PO PRN (23:22)
[2020-06-02 01:26] LABS: Urine Appearance CLEAR; Urine Bilirubin NEGATIVE (NEG); Urine Blood NEGATIVE (NEG); Urine Color YELLOW; Urine Glucose 3+ (NEG); Urine Protein 1+ (NEG); Urine Specific Gravity >=1.030 (1.005-1.030); Urine Urobilinogen 0.2 mg/dL (0.2-1.0)
[2020-06-02 01:27] LABS: Urine Microscopic Reflex ORDER UMIC
[2020-06-02 02:22] LABS: Urine Bacteria <20 /HPF (NONE SEEN); Urine RBC <5 /HPF (NONE SEEN); Urine Urothelial Cells <5 /HPF (NONE SEEN)
[2020-06-02 03:49] LABS: Basophils % 0.1 % (0-1.3); Hematocrit 40.8 % (39.6-49.0); Lymphocytes % 8.8 % (15.3-44.8); MPV 11.3 fL (7.6-11.3); RBC Red Blood Cell Count 4.58 M/uL (4.33-5.43)
[2020-06-02 04:06] LABS: BUN Blood Urea Nitrogen 15 mg/dL (7-18); Bicarbonate 30 mmol/L (21-32); Ferritin 314.2 ng/mL (26-388); Glucose Level 191 mg/dL (74-106); Magnesium 2.4 mg/dL (1.8-2.4); Potassium 4.3 mmol/L (3.5-5.1); Sodium Level 140 mmol/L (136-145)
[2020-06-02] MEDS: INSULIN -REGULAR HUMAN 50 UNIT/0.5 ML ML SQ SCH ×4 (07:30→20:19)
[2020-06-02] MEDS: BENZONATATE 100 MG CAP PO PRN ×2 (08:25→20:18)
[2020-06-02] MEDS: FAMOTIDINE 20 MG/2 ML VIAL IV SCH ×2 (08:26→20:18)
[2020-06-02] MEDS: ENOXAPARIN 40 MG/0.4 ML SQ SCH (08:26)
[2020-06-02] MEDS: METHYLPREDNISOLONE 125 MG INJ IV SCH ×3 (08:29→20:18)
[2020-06-02] MEDS: HYDROCODONE/CHLORPHEN 5 ML/OSYR PO PRN ×2 (09:59→20:19)
[2020-06-02] MEDS: ACETAMINOPHEN 500 MG TAB PO PRN (10:00)
--- NOTE | 2020-06-02 13:00 | P.CNS ---
Date of Consult: 06/02/20 Reason for Consult: Respiratory failure from richard virus Chief Complaint: Shortness of breath and cough History of Present Illness: Patient is 50 years of age the triple underlying medical problems admitted with worsening dyspnea cough he was tested before coronal virus over 2 weeks ago denies any fever DT scan chest x-ray consistent with richard virus pneumonia as feeling a little better Allergies No Known Allergies Allergy (Verified 01/31/18 21:47) Home Medications: Amlodipine [Norvasc*] 1 tab PO DAILY 01/31/18 Levothyroxine Sodium 1 tab PO DAILY 01/31/18 Metformin ER [Glucophage ER*] 1 tab PO BID 01/31/18 Semaglutide [Ozempic] 1 mg SQ SEECOM 01/31/18 lisinopriL [Prinivil*] 1 tab PO DAILY 01/31/18 Pantoprazole [Protonix Tab*] 40 mg PO DAILY #30 tab 02/06/18 - Past Medical/Surgical History Diabetic: Yes -: Diabetes mellitus types 2 -: Hypertension -: Cholecystectomy -: Left side -: Right knee - Family History Father Medical History: Hypertension, Diabetes Mother Medical History: Hypertension, Diabetes - Social History Smoking Status: Current every day smoker Alcohol use: Yes CD- Drugs: No Caffeine use: Yes Review of Systems General: Weakness Respiratory: Cough, Shortness of Breath Physical Examination Temp Pulse Resp BP Pulse Ox 97.3 F 78 19 109/63 94 06/02/20 12:00 06/02/20 12:00 06/02/20 12:00 06/02/20 12:00 06/02/20 12:00 General: Alert, In no apparent distress, Oriented x3 Respiratory: Clear to auscultation bilaterally, Diminished Cardiovascular: No edema, Regular rate/rhythm Laboratory Data (last 24 hrs) 06/02/20 03:09: Sodium 140, Potassium 4.3, BUN 15, Creatinine 0.74, Glucose 191 H, Magnesium 2.4 D 06/02/20 03:09: WBC 11.8 H D, Hgb 13.7, Hct 40.8, Plt Count 126 L - Problems (1) Pneumonia due to COVID-19 virus Current Visit: Yes Status: Acute Plan: Patient is 50 years of age admitted with pneumonia from richard virus he is clinically improving/saturation satisfactory prior to discharge home on 4 L of nasal cannula oxygen prednisone 20 b.i.d. for 10 days and then taper to 10 twice a day full anticoagulation with aspirin for with me in 2 weeks
--- NOTE | 2020-06-02 19:00 | P.PN ---
Subjective Date of Service: 06/02/20 Chief Complaint: Shortness of breath and cough Subjective: No new changes (feeling the same. SpO2 to low-mid 80s with minimal ambulation. otherwise doing ok) Review of Systems 10-point ROS is otherwise unremarkable Physical Examination - Vital Signs Temperature: 97.1 F Blood Pressure: 112/68 Pulse: 74 Respirations: 18 Pulse Ox (%): 93 - Physical Exam General: Alert, In no apparent distress, Oriented x3 HEENT: Sclerae nonicteric Respiratory: Crackles/rales (on 4 LNC) Cardiovascular: No edema, Regular rate/rhythm Gastrointestinal: Soft and benign, No tenderness Musculoskeletal: No tenderness - Studies Laboratory Data (last 24 hrs) 06/02/20 03:09: Sodium 140, Potassium 4.3, BUN 15, Creatinine 0.74, Glucose 191 H, Magnesium 2.4 D 06/02/20 03:09: WBC 11.8 H D, Hgb 13.7, Hct 40.8, Plt Count 126 L Microbiology Data (last 24 hrs): 06/02/20 03:30 Throat Group A Streptococcus Rapid Screen - Final Assessment & Plan Physician Review Additional Text: Pneumonia due to COVID-19 virus Acute respiratory failure with hypoxia Diabetes mellitus Hypertension increase IV solumedrol to TID, continue vitamin supplementation CRP trending up, continue to monitor wean O2 as tolerated pulm consulted sliding scale insulin for glucose management anticipate some steroid induced hyperglycemia Dispo: possible DC home tomorrow with home O2 Time Spent Managing Pts Care (In Minutes): 40
[2020-06-03 03:56] LABS: Absolute Lymphocytes (CBC) 1.2 K/uL (0.7-4.9); Basophils % 0.1 % (0-1.3); Hematocrit 39.1 % (39.6-49.0); Lymphocytes % 8.6 % (15.3-44.8); MPV 11.2 fL (7.6-11.3); RBC Red Blood Cell Count 4.46 M/uL (4.33-5.43)
[2020-06-03 04:33] LABS: C-Reactive Protein 99.8 mg/L (<3.00); Ferritin 333.6 ng/mL (26-388); Magnesium 2.5 mg/dL (1.8-2.4)
[2020-06-03 05:00] LABS: Blood Morphology Comment NOT SEEN (NOT SEEN); Platelet Estimate ADEQ
[2020-06-03] MEDS: INSULIN -REGULAR HUMAN 50 UNIT/0.5 ML ML SQ SCH ×3 (09:02→17:47)
[2020-06-03] MEDS: ENOXAPARIN 40 MG/0.4 ML SQ SCH (09:03)
[2020-06-03] MEDS: FAMOTIDINE 20 MG/2 ML VIAL IV SCH ×2 (09:03→20:33)
[2020-06-03] MEDS: METHYLPREDNISOLONE 125 MG INJ IV SCH ×3 (09:04→20:33)
[2020-06-03] MEDS: BENZONATATE 100 MG CAP PO PRN (09:17)
[2020-06-03] MEDS: HYDROCODONE/CHLORPHEN 5 ML/OSYR PO PRN (12:31)
--- NOTE | 2020-06-03 19:34 | P.PN ---
Subjective Date of Service: 06/03/20 Chief Complaint: Shortness of breath and cough Subjective: Worsening (doing better yesterday, desatted this morning, now on HFNC, otherwise feeling ok, reports sore throat) Review of Systems 10-point ROS is otherwise unremarkable Physical Examination - Vital Signs Temperature: 97.3 F Blood Pressure: 115/67 Pulse: 63 Respirations: 28 Pulse Ox (%): 96 - Physical Exam General: Alert, In no apparent distress HEENT: Sclerae nonicteric Respiratory: Other (mildly labored on HFNC) Cardiovascular: No edema, Regular rate/rhythm Gastrointestinal: Soft and benign, No tenderness Integumentary: No rashes Neurological: Normal speech Assessment & Plan Physician Review Additional Text: Pneumonia due to COVID-19 virus Acute respiratory failure with hypoxia Diabetes mellitus Hypertension continue IV solumedrol 80 TID, trend CRP/Ferritin wean O2 as tolerated pulm consulted sliding scale insulin for glucose management, start lantus 10 in AM anticipate some steroid induced hyperglycemia Dispo: dc home with oxygen in ~48hrs Time Spent Managing Pts Care (In Minutes): 35
[2020-06-04] MEDS: INSULIN -REGULAR HUMAN 50 UNIT/0.5 ML ML SQ SCH ×5 (00:34→21:40)
[2020-06-04 03:45] LABS: Absolute Lymphocytes (CBC) 1.2 K/uL (0.7-4.9); Basophils % 0.2 % (0-1.3); Hematocrit 38.9 % (39.6-49.0); MPV 10.6 fL (7.6-11.3); RBC Red Blood Cell Count 4.42 M/uL (4.33-5.43)
[2020-06-04 04:26] LABS: BUN Blood Urea Nitrogen 20 mg/dL (7-18); Bicarbonate 31 mmol/L (21-32); Ferritin 332.3 ng/mL (26-388); Glucose Level 176 mg/dL (74-106); Magnesium 2.5 mg/dL (1.8-2.4); Potassium 4.4 mmol/L (3.5-5.1); Sodium Level 139 mmol/L (136-145)
[2020-06-04] MEDS: BENZONATATE 100 MG CAP PO PRN (05:48)
[2020-06-04] MEDS ORDERED: INSULIN GLARGINE 100 UNITS/ML SQ SCH (08:00)
[2020-06-04] MEDS: ACETAMINOPHEN 500 MG TAB PO PRN (08:42)
[2020-06-04] MEDS: METHYLPREDNISOLONE 125 MG INJ IV SCH ×3 (08:42→21:41)
[2020-06-04] MEDS: FAMOTIDINE 20 MG/2 ML VIAL IV SCH ×2 (08:43→21:42)
[2020-06-04] MEDS: ENOXAPARIN 40 MG/0.4 ML SQ SCH (08:44)
--- NOTE | 2020-06-04 11:55 | RAD REPORT ---
EXAM DESCRIPTION: US - Extremity Venous Uni Ltd - 06/04/2020 11:49 am CLINICAL HISTORY: Rule out DVT on the left leg Leg swelling and edema. COMPARISON: <Comparisons> FINDINGS: Left lower extremity venous system was interrogated with Doppler technique. Normal flow, c ompressibility and augmentation was noted. There is no DVT present. IMPRESSION: No evidence of left lower extremity deep venous thrombosis.
--- NOTE | 2020-06-04 18:20 | P.PN ---
Subjective Date of Service: 06/04/20 Chief Complaint: Shortness of breath and cough Subjective: No new changes (feeling about the same, on HFNC overnight. on 6L NC this morning) Review of Systems 10-point ROS is otherwise unremarkable Physical Examination - Vital Signs Temperature: 97.5 F Blood Pressure: 119/65 Pulse: 70 Respirations: 18 Pulse Ox (%): 90 - Physical Exam General: Alert, In no apparent distress HEENT: Sclerae nonicteric Respiratory: Other (nonlabored on 6 LNC) Cardiovascular: No edema, Regular rate/rhythm Gastrointestinal: Soft and benign, Non-distended, No tenderness Integumentary: No rashes Neurological: Normal speech - Studies Microbiology Data (last 24 hrs): 06/02/20 03:30 Throat Culture & Sensitivity - Final NORMAL UPPER RESPIRATORY ROSA GROWN. Assessment & Plan Physician Review Additional Text: Pneumonia due to COVID-19 virus Acute respiratory failure with hypoxia Diabetes mellitus Hypertension continue IV solumedrol 80 TID, trend CRP/Ferritin, improving wean O2 as tolerated pulm consulted sliding scale insulin for glucose management, increase lantus 10-> 20 units AM anticipate some steroid induced hyperglycemia Dispo: dc home with oxygen in ~48hrs, when >90% on 4L NC Time Spent Managing Pts Care (In Minutes): 36
[2020-06-05 07:09] LABS: C-Reactive Protein 83.1 mg/L (<3.00); Ferritin 362.7 ng/mL (26-388); Magnesium 2.4 mg/dL (1.8-2.4); Phosphorus 3.6 mg/dL (2.5-4.9); Potassium 4.4 mmol/L (3.5-5.1)
[2020-06-05] MEDS: INSULIN -REGULAR HUMAN 50 UNIT/0.5 ML ML SQ SCH ×4 (07:30→21:00)
[2020-06-05] MEDS ORDERED: INSULIN GLARGINE 100 UNITS/ML SQ SCH (08:00)
[2020-06-05] MEDS: METHYLPREDNISOLONE 125 MG INJ IV SCH ×3 (08:51→22:30)
[2020-06-05] MEDS: FAMOTIDINE 20 MG/2 ML VIAL IV SCH (08:51)
[2020-06-05] MEDS: BENZONATATE 100 MG CAP PO PRN (08:51)
[2020-06-05] MEDS: ENOXAPARIN 40 MG/0.4 ML SQ SCH (08:51)
[2020-06-05 11:08] VITALS: BMI 35.9
--- NOTE | 2020-06-05 12:13 | P.PN ---
Subjective Date of Service: 06/05/20 Chief Complaint: Respiratory failure from richard virus Subjective: Improving (Patient is improving feeling better) Review of Systems General: Weakness Respiratory: Shortness of Breath Physical Examination - Vital Signs Temperature: 98.4 F Blood Pressure: 110/58 Pulse: 55 Respirations: 32 Pulse Ox (%): 93 - Physical Exam General: Alert, Oriented x3, Mild distress Respiratory: Clear to auscultation bilaterally Cardiovascular: No edema - Studies Microbiology Data (last 24 hrs): 06/02/20 03:30 Throat Culture & Sensitivity - Final NORMAL UPPER RESPIRATORY ROSA GROWN. Assessment & Plan - Problems (Diagnosis) (1) Pneumonia due to COVID-19 virus Current Visit: Yes Status: Acute Plan: Patient is 50 years of age admitted with respiratory failure from richard virus agree with Remdesmir blood sugars higher white count is mildly elevated patient is requiring 80% FiO2
[2020-06-05] MEDS ORDERED: Remdesivir 200 MG in NA CHLORIDE 0.9% 250 ML IV ONE (13:00)
[2020-06-05] MEDS: HYDROCODONE/CHLORPHEN 5 ML/OSYR PO PRN (13:18)
[2020-06-05] MEDS: APIXABAN 5 MG TABLET PO SCH (22:30)
[2020-06-05] MEDS: ATORVASTATIN 40 MG TAB PO SCH (22:30)
[2020-06-05] MEDS: MELATONIN 5 MG TABLET PO SCH (22:30)
[2020-06-05] MEDS: FAMOTIDINE 20 MG TAB PO SCH (22:30)
--- NOTE | 2020-06-05 23:20 | P.PN ---
Subjective Date of Service: 06/05/20 Chief Complaint: Respiratory failure from richard virus Subjective: Worsening (o2 requirement increasing, glc increasing, pt feels ok, no new complaints, CRP increased today as well) Review of Systems 10-point ROS is otherwise unremarkable Physical Examination - Vital Signs Temperature: 97.4 F Blood Pressure: 116/59 Pulse: 57 Respirations: 30 Pulse Ox (%): 95 - Physical Exam General: Alert, In no apparent distress, Oriented x3 HEENT: Sclerae nonicteric Respiratory: Other (nonlabored on HFNC) Cardiovascular: No edema, Regular rate/rhythm Gastrointestinal: Soft and benign, No tenderness Integumentary: No rashes Assessment & Plan Physician Review Additional Text: Pneumonia due to COVID-19 virus Acute respiratory failure with hypoxia Diabetes mellitus Hypertension continue IV solumedrol 80 TID, trend CRP/Ferritin remdesevir started wean O2 as tolerated pulm consulted sliding scale insulin for glucose management, increase latnus 20u AM to BID. pt's ozempic likely wearing off now steroid induced hyperglycemia Dispo: dc home with oxygen when >90% on 4L NC, oxygen requirement increasing Time Spent Managing Pts Care (In Minutes): 35
[2020-06-06] MEDS: INSULIN GLARGINE 100 UNITS/ML SQ SCH ×3 (01:18→19:59)
[2020-06-06] MEDS: LEVOTHYROXINE SOD 0.075 MG TAB PO SCH (05:57)
[2020-06-06] MEDS: LEVOTHYROXINE SOD 0.1 MG TAB PO SCH (05:57)
[2020-06-06 08:12] LABS: ALT/SGPT 112 U/L (12-78); AST/SGOT 26 U/L (15-37); Albumin 2.8 g/dL (3.4-5.0); Alkaline Phosphatase 76 U/L (45-117); Bilirubin Direct < 0.1 mg/dL (0-0.2); Bilirubin Total 0.6 mg/dL (0.2-1.0); Ferritin 330.7 ng/mL (26-388)
--- NOTE | 2020-06-06 08:43 | RAD REPORT ---
EXAM DESCRIPTION: RAD - Chest Single View - 06/06/2020 6:26 am CLINICAL HISTORY: SOB, COVID COMPARISON: June [address] chest TECHNIQUE: AP portable chest image was obtained 06/06/2020 6:26 am . FINDINGS: Lung volumes are slightly reduced compared to June 01 imaging. Atelectasis changes are e vident. Bilateral infiltrates are accentuated by the shallow inspiration. Left base may be slightly b vale aerated. Increased right opacification is probably the affects of more shallow inspiration. Lef t upper lung field findings are stable. Heart and vasculature are normal. No measurable pleural effusion and no pneumothorax. No acute bony abnormality seen. No acute aortic findings suspected. IMPRESSION: Exam is essentially stable from June 01. There may be slight improvement in the left b ase.
[2020-06-06] MEDS: VITAMIN D 1000 UNIT TAB PO SCH (09:00)
[2020-06-06] MEDS: METHYLPREDNISOLONE 125 MG INJ IV SCH ×3 (09:14→19:58)
[2020-06-06] MEDS: APIXABAN 5 MG TABLET PO SCH ×2 (09:14→19:58)
[2020-06-06] MEDS: FAMOTIDINE 20 MG TAB PO SCH ×2 (09:14→19:58)
[2020-06-06] MEDS: HYDROCODONE/CHLORPHEN 5 ML/OSYR PO PRN (09:14)
[2020-06-06] MEDS: THIAMINE HCL 100 MG TABLET PO SCH (09:14)
[2020-06-06] MEDS: INSULIN -REGULAR HUMAN 50 UNIT/0.5 ML ML SQ SCH ×4 (09:18→19:59)
[2020-06-06] MEDS: Remdesivir 100 MG in NA CHLORIDE 0.9% 250 ML IV SCH (09:18)
[2020-06-06] MEDS: ATORVASTATIN 40 MG TAB PO SCH (19:58)
[2020-06-06] MEDS: MELATONIN 5 MG TABLET PO SCH (19:58)
--- NOTE | 2020-06-06 20:26 | P.PN ---
Subjective Date of Service: 06/06/20 Chief Complaint: Respiratory failure from richard virus Subjective: Other (states he is doing ok, breathing ok on HFNC. reports sore throat. eating ok, walking around ok. no diarrhea, no swelling. oxygen requirement increasing) Review of Systems 10-point ROS is otherwise unremarkable Physical Examination - Vital Signs Temperature: 97.7 F Blood Pressure: 133/61 Pulse: 48 Respirations: 32 Pulse Ox (%): 95 - Physical Exam General: Alert, In no apparent distress Neck: Other (nonlabored on HFNC) Cardiovascular: No edema, Regular rate/rhythm Gastrointestinal: Soft and benign, No tenderness Musculoskeletal: No tenderness Integumentary: No rashes Neurological: Normal speech, Normal affect - Studies Microbiology Data (last 24 hrs): 06/01/20 06:44 Blood - Blood Aerobic Blood Culture - Final No growth in 5 days. 06/01/20 06:44 Blood - Blood Anaerobic Blood Culture - Final No growth in 5 days. 06/01/20 06:44 Blood - Blood Aerobic Blood Culture - Final No growth in 5 days. 06/01/20 06:44 Blood - Blood Anaerobic Blood Culture - Final No growth in 5 days. Assessment & Plan Physician Review Additional Text: Pneumonia due to COVID-19 virus Acute respiratory failure with hypoxia Diabetes mellitus Hypertension continue IV solumedrol 80 TID, trend CRP/Ferritin - improving on remdesevir wean O2 as tolerated, requirement is increasing pulm consulted sliding scale insulin for glucose management, increase lantus to 30u BID steroid induced hyperglycemia in addition to DM2 Dispo: hospitalization >2 days, anticipate eventual dc home with oxygen when >90% on 4L NC Time Spent Managing Pts Care (In Minutes): 35
[2020-06-06] MEDS ORDERED: INSULIN GLARGINE 100 UNITS/ML SQ SCH (21:00)
[2020-06-07] MEDS: LEVOTHYROXINE SOD 0.075 MG TAB PO SCH (05:42)
[2020-06-07] MEDS: LEVOTHYROXINE SOD 0.1 MG TAB PO SCH (05:43)
[2020-06-07 07:02] LABS: Absolute Lymphocytes (CBC) 1.2 K/uL (0.7-4.9); Basophils % 0.3 % (0-1.3); Hematocrit 41.6 % (39.6-49.0); Lymphocytes % 9.7 % (15.3-44.8); MPV 10.1 fL (7.6-11.3)
[2020-06-07 07:15] LABS: ALT/SGPT 101 U/L (12-78); AST/SGOT 19 U/L (15-37); Albumin 2.9 g/dL (3.4-5.0); Alkaline Phosphatase 79 U/L (45-117); BUN Blood Urea Nitrogen 21 mg/dL (7-18); Bicarbonate 33 mmol/L (21-32); Bilirubin Direct 0.1 mg/dL (0-0.2); Bilirubin Total 0.6 mg/dL (0.2-1.0); Ferritin 277.6 ng/mL (26-388); Glucose Level 202 mg/dL (74-106); Magnesium 2.4 mg/dL (1.8-2.4); Potassium 4.6 mmol/L (3.5-5.1); Protein, Total 7.1 g/dL (6.4-8.2); Sodium Level 138 mmol/L (136-145)
[2020-06-07] MEDS: APIXABAN 5 MG TABLET PO SCH ×2 (09:35→20:56)
[2020-06-07] MEDS: FAMOTIDINE 20 MG TAB PO SCH ×2 (09:35→21:03)
[2020-06-07] MEDS: THIAMINE HCL 100 MG TABLET PO SCH (09:35)
[2020-06-07] MEDS: METHYLPREDNISOLONE 125 MG INJ IV SCH (09:35)
[2020-06-07] MEDS: VITAMIN D 1000 UNIT TAB PO SCH (09:35)
[2020-06-07] MEDS: Remdesivir 100 MG in NA CHLORIDE 0.9% 250 ML IV SCH (09:37)
[2020-06-07] MEDS: INSULIN GLARGINE 100 UNITS/ML SQ SCH ×2 (09:38→21:12)
[2020-06-07] MEDS: INSULIN -REGULAR HUMAN 50 UNIT/0.5 ML ML SQ SCH ×4 (09:39→21:12)
[2020-06-07] MEDS: METHYLPREDNISOLONE 40 MG INJ IV SCH ×2 (14:30→21:04)
--- NOTE | 2020-06-07 15:09 | P.PN ---
Subjective Date of Service: 06/07/20 Chief Complaint: Respiratory failure from richard virus Subjective: Improving (Doign better. O2 req decreasing) Review of Systems Respiratory: Shortness of Breath Physical Examination - Vital Signs Temperature: 97.8 F Blood Pressure: 121/66 Pulse: 58 Respirations: 24 Pulse Ox (%): 93 Assessment & Plan - Problems (Diagnosis) (1) Pneumonia due to COVID-19 virus Status: Acute Plan: Cond improving. Cont to titrate O2 down . possible D/C am / labs reviewed
--- NOTE | 2020-06-07 20:53 | P.PN ---
Subjective Date of Service: 06/07/20 Chief Complaint: Respiratory failure from richard virus Subjective: Improving (oxygen requirement improving, no acute events overnight. eating well, ambulating, urinating, +BM) Review of Systems 10-point ROS is otherwise unremarkable Physical Examination - Vital Signs Temperature: 97.4 F Blood Pressure: 116/69 Pulse: 51 Respirations: 24 Pulse Ox (%): 92 - Physical Exam General: Alert, In no apparent distress Respiratory: Other (on HFNC) Gastrointestinal: Soft and benign, No tenderness Musculoskeletal: No tenderness Integumentary: No rashes Neurological: Normal speech, Normal affect Assessment & Plan Physician Review: Patient Assessed, Agree with Above Assessment and Plan Physician Review Additional Text: Pneumonia due to COVID-19 virus Acute respiratory failure with hypoxia Diabetes mellitus Hypertension decrease IV solumedrol, CRP/Ferritin improving on remdesevir wean O2 as tolerated pulm consulted sliding scale insulin for glucose management, lantus at 30u BID steroid induced hyperglycemia in addition to DM2 Dispo: dc home in 24-48hrs with oxygen when >90% on 4L NC Time Spent Managing Pts Care (In Minutes): 35
[2020-06-07] MEDS: MELATONIN 5 MG TABLET PO SCH (21:03)
[2020-06-08 04:08] LABS: ALT/SGPT 80 U/L (12-78); AST/SGOT 16 U/L (15-37); Albumin 2.8 g/dL (3.4-5.0); Alkaline Phosphatase 74 U/L (45-117); BUN Blood Urea Nitrogen 18 mg/dL (7-18); Bicarbonate 33 mmol/L (21-32); Bilirubin Direct < 0.1 mg/dL (0-0.2); Bilirubin Total 0.6 mg/dL (0.2-1.0); Ferritin 242.7 ng/mL (26-388); Glucose Level 201 mg/dL (74-106); Magnesium 2.3 mg/dL (1.8-2.4); Potassium 4.3 mmol/L (3.5-5.1); Protein, Total 6.8 g/dL (6.4-8.2); Sodium Level 137 mmol/L (136-145)
[2020-06-08] MEDS: LEVOTHYROXINE SOD 0.1 MG TAB PO SCH (05:44)
[2020-06-08] MEDS: LEVOTHYROXINE SOD 0.075 MG TAB PO SCH (05:44)
[2020-06-08] MEDS: INSULIN -REGULAR HUMAN 50 UNIT/0.5 ML ML SQ SCH ×4 (07:30→21:03)
[2020-06-08] MEDS: THIAMINE HCL 100 MG TABLET PO SCH (08:48)
[2020-06-08] MEDS: INSULIN GLARGINE 100 UNITS/ML SQ SCH ×3 (08:48→21:03)
[2020-06-08] MEDS: VITAMIN D 1000 UNIT TAB PO SCH (08:48)
[2020-06-08] MEDS: FAMOTIDINE 20 MG TAB PO SCH ×2 (08:48→20:53)
[2020-06-08] MEDS: APIXABAN 5 MG TABLET PO SCH ×2 (09:32→20:53)
[2020-06-08] MEDS: METHYLPREDNISOLONE 40 MG INJ IV SCH ×3 (10:00→20:53)
[2020-06-08] MEDS: Remdesivir 100 MG in NA CHLORIDE 0.9% 250 ML IV SCH (14:21)
--- NOTE | 2020-06-08 18:33 | P.PN ---
Subjective Date of Service: 06/08/20 Chief Complaint: Respiratory failure from richard virus Subjective: Improving (On 4 L nasal cannula, feeling well. Oxygen saturations dropped to the mid 80s with slight movements and into the 70s with walking to the bathroom. Takes a few min to come back up to the 90s) Review of Systems 10-point ROS is otherwise unremarkable Physical Examination - Vital Signs Temperature: 97.2 F Blood Pressure: 103/59 Pulse: 61 Respirations: 32 Pulse Ox (%): 92 - Physical Exam General: Alert, In no apparent distress HEENT: Sclerae nonicteric Respiratory: Other (Nonlabored on 4 L nasal cannula, slight tachypneic//shallow respirations) Cardiovascular: No edema, Regular rate/rhythm Gastrointestinal: Soft and benign, No tenderness Musculoskeletal: No tenderness Integumentary: No rashes Neurological: Normal speech, Normal strength at 5/5 x4 extr, Sensation intact (except on L anterolater inferior thigh), Cranial nerves 3-12 intact, Normal affect Assessment & Plan Physician Review Additional Text: Pneumonia due to COVID-19 virus Acute respiratory failure with hypoxia Diabetes mellitus Hypertension continue IV solumedrol 40mg TID, CRP/Ferritin improving on remdesevir wean O2 as tolerated pulm consulted sliding scale insulin for glucose management, lantus at 20u BID steroid induced hyperglycemia in addition to DM2 Dispo: dc home tomorrow, unfortunately patient's oxygen was just now delivered. patient states he would be unable to obtain his medications his pharmacy does not have some of his prescriptions and expecting shipment tomorrow morning. Given how borderline he is, i feel this is unsafe for discharge if he fails to gets medications, or pharmacy has delay in medications, he would like decompensate and be right back Time Spent Managing Pts Care (In Minutes): 35
[2020-06-08] MEDS: MELATONIN 5 MG TABLET PO SCH (20:53)
[2020-06-09 04:12] LABS: Albumin 2.8 g/dL (3.4-5.0); Bilirubin Direct 0.2 mg/dL (0-0.2); Bilirubin Total 0.7 mg/dL (0.2-1.0); Ferritin 230.5 ng/mL (26-388); Magnesium 2.3 mg/dL (1.8-2.4); Potassium 4.6 mmol/L (3.5-5.1); Protein, Total 6.8 g/dL (6.4-8.2)
[2020-06-09] MEDS: LEVOTHYROXINE SOD 0.075 MG TAB PO SCH (05:19)
[2020-06-09] MEDS: LEVOTHYROXINE SOD 0.1 MG TAB PO SCH (05:19)
[2020-06-09] MEDS: INSULIN -REGULAR HUMAN 50 UNIT/0.5 ML ML SQ SCH ×2 (07:30→11:48)
[2020-06-09] MEDS: FAMOTIDINE 20 MG TAB PO SCH (09:18)
[2020-06-09] MEDS: VITAMIN D 1000 UNIT TAB PO SCH (09:18)
[2020-06-09] MEDS: THIAMINE HCL 100 MG TABLET PO SCH (09:18)
[2020-06-09] MEDS: APIXABAN 5 MG TABLET PO SCH (09:18)
[2020-06-09] MEDS: METHYLPREDNISOLONE 40 MG INJ IV SCH (09:18)
[2020-06-09] MEDS: INSULIN GLARGINE 100 UNITS/ML SQ SCH (09:18)
[2020-06-09] MEDS: Remdesivir 100 MG in NA CHLORIDE 0.9% 250 ML IV SCH (09:19)
--- NOTE | 2020-06-09 11:00 | P.DS ---
Admission Date: 06/02/20 Discharge Date: 06/09/20 Disposition: ROUTINE DISCHARGE Discharge Condition: GOOD Reason for Admission: Respiratory failure from richard virus - Problems (1) Pneumonia due to COVID-19 virus Status: Acute (2) Acute respiratory failure with hypoxia Status: Acute (3) Diabetes mellitus Onset Date: 02/01/18 Status: Acute (4) Hypertension Onset Date: 02/01/18 Status: Acute Qualifiers: Brief History of Present Illness: 50-year-old obese gentleman with a history of hypertension, diabetes mellitus and hyperlipidemia presented to the emergency department with a complaint of neelima rtness of breath and coughing. He tested positive for COVID 19 four days ago. Patient denied any fever. States that cough is nonproductive. He reports shortness of breath at rest and with exertion. CTA thorax done in the emergency department showed moderate bilateral infiltrates. Patient was requiring 2 L of oxygen to maintain oxygen saturation greater than 90%. Patient is hospitalized for further evaluation and management. Hospital Course: Patient was admitted to the medical floor and started on IV Solu-Medrol. His oxygen requirement increased to the point he was requiring high-flow oxygen. Patient was seen in consultation by pulmonary Dr. Griggs. Remdesivir was administered. Patient respiratory condition gradually improved and was weaned off high-flow oxygen to oxygen by nasal cannula. He was placed on Eliquis for thromboembolism prophylaxis. He has clinically improved will treatment and now stable on 3 L of oxygen by nasal cannula. Patient is deemed clinically stable for discharge with home oxygen. He is prescribed oral prednisone and Eliquis. Vital Signs/Physical Exam: Temp Pulse Resp BP Pulse Ox 97.0 F 53 17 100/63 92 06/09/20 08:00 06/09/20 08:00 06/09/20 08:00 06/09/20 08:00 06/09/20 08:00 General: Alert, In no apparent distress, Oriented x3 Respiratory: Crackles/rales (Mild bibasilar crackles) Cardiovascular: No edema, Regular rate/rhythm, Normal S1 S2 Gastrointestinal: Non-distended Musculoskeletal: No swelling Integumentary: No rashes Neurological: Other (No focal deficit.) Laboratory Data at Discharge: WBC 12.1 K/uL (4.3-10.9) H D 06/07/20 06:30 Hgb 14.0 g/dL (13.6-17.9) 06/07/20 06:30 Hct 41.6 % (39.6-49.0) 06/07/20 06:30 Plt Count 244 K/uL (152-406) D 06/07/20 06:30 PT 12.7 SECONDS (9.5-12.5) H 06/01/20 06:44 INR 1.08 06/01/20 06:44 APTT 24.9 SECONDS (24.3-36.9) 06/01/20 06:44 Sodium 137 mmol/L (136-145) 06/09/20 03:08 Potassium 4.6 mmol/L (3.5-5.1) 06/09/20 03:08 BUN 18 mg/dL (7-18) 06/09/20 03:08 Creatinine 0.92 mg/dL (0.55-1.3) 06/09/20 03:08 Glucose 217 mg/dL (74-106) H 06/09/20 03:08 Phosphorus 3.6 mg/dL (2.5-4.9) 06/05/20 06:39 Magnesium 2.3 mg/dL (1.8-2.4) 06/09/20 03:08 Total Bilirubin 0.7 mg/dL (0.2-1.0) 06/09/20 03:08 AST 16 U/L (15-37) 06/09/20 03:08 ALT 68 U/L (12-78) 06/09/20 03:08 Alkaline Phosphatase 76 U/L (45-117) 06/09/20 03:08 Lipase 118 U/L (73-393) 06/01/20 06:44 Home Medications: Amlodipine [Norvasc*] 1 tab PO DAILY 01/31/18 Levothyroxine Sodium 1 tab PO DAILY 01/31/18 Metformin ER [Glucophage ER*] 1 tab PO BID 01/31/18 lisinopriL [Prinivil*] 1 tab PO DAILY 01/31/18 Pantoprazole [Protonix Tab*] 40 mg PO DAILY #30 tab 02/06/18 Apixaban [Eliquis] 5 mg PO BID 30 Days #60 tablet 06/08/20 Insulin Detemir [Levemir Flextouch] 10 unit SQ BID 30 Days #6 ml 06/08/20 predniSONE [Prednisone*] 20 mg PO SEECOM 14 Days #21 tab 06/08/20 New Medications: Apixaban [Eliquis] 5 mg PO BID 30 Days #60 tablet Insulin Detemir [Levemir Flextouch] 10 unit SQ BID 30 Days #6 ml predniSONE [Prednisone*] 20 mg PO SEECOM 14 Days #21 tab Patient Discharge Instructions: you were diagnosed with COVID-19 pneumonia. You will be discharged with prednisone (steroids), eliquis (blood thinner), and insulin. Please continue to monitor your blood glucose at least twice a day (morning and evening). You are also discharged with home oxygen. Use 4 liters at rest, and if able, can turn up to 6 liters for a short time when moving around. Call Dr. Griggs's office to follow up in 1-2 weeks. Your blood pressure was low-normal during your hospitalization. Hold your blood pressure medications at home. Check your blood pressure daily and restart once > 140/90 Diet: ADA Activity: Ad edmar Followup: Ortiz Griggs MD [ACTIVE - CAN ADMIT] - 1-2 Weeks (lung doctor- call to schedule an appointment ) BARRY CORNEJO [Primary Care Provider] - 1-2 Weeks (PCP-call to schedule an appointment ) Time spent managing pt's care (in minutes): 40
[2020-06-09 11:30] VITALS: O2SAT 93
[2020-06-18 21:47] VITALS: BP 121/66; TEMP 97.8
== END 2020-06-09 12:53 | disposition home or self-care (01) | DRG 177 ==
LOC: ER 05:54 → ERHOLD 08:27 → 4TH 22:04 → OBSVTOIN 06-02 12:16
PROVIDERS: ADMIT Internal Medicine; ATTEND Internal Medicine
PROC: XW033E5 Introduction of Remdesivir Anti-infective into Peripheral Vein, Percutaneous Approach, New Technology Group 5 (ICD-10-PCS; principal; 2020-06-05)
DX: U07.1 COVID-19 (principal); J12.82 Pneumonia due to coronavirus disease 2019; J96.01 Acute respiratory failure with hypoxia; E11.9 Type 2 diabetes mellitus without complications; I10 Essential (primary) hypertension; E03.9 Hypothyroidism, unspecified; E78.5 Hyperlipidemia, unspecified; E66.9 Obesity, unspecified; Z68.35 Body mass index [BMI] 35.0-35.9, adult; Z79.52 Long term (current) use of systemic steroids; Z90.49 Acquired absence of other specified parts of digestive tract; Z79.4 Long term (current) use of insulin; Z79.899 Other long term (current) drug therapy; Z79.890 Hormone replacement therapy
CPT/HCPCS: 36415; 71045; 71275; 80048; 80076; 81003; 81015; 82565; 82728; 82947; 83605; 83690; 83735; 84100; 84132; 84145; 84484; 85025; 85379; 85610; 85730; 86140; 87040; 87070; 87081; 93005; 93971; 94002; 94003; 94760; 96361; 96365; 96372; 96375; 99285; G0378; J0456; J0696; J1100; J1650; J1815; J2920; J2930; J7030; J7050; Q9967

== ENCOUNTER 2022-05-01 13:47 | Emergency (ER) | payer BC ==
--- OUTSIDE RECORDS SUMMARY | 2022-05-01 13:52 | XMS REPORT | Continuity of Care Document ---
:1970 Author Organization [facility] t Address [address] [place] [address] Care Team Providers Name Role Phone Mayte Garcias Primary Care Physician CESAR BARNETT Attending Clinician Unavailable CESAR BARNETT Attending Clinician Unavailable Sherlyn Gilmore RD Attending Clinician Justine Dai MA Attending Clinician Unavailable Radiology Attending Clinician Unavailable RADIOLOGY Attending Clinician Unavailable Payers Payer Name Policy Type Policy Number Effective Date Expiration Date S alisha BCBSTX PPO AND [id number] 2020 00:00:00 OUT OF STATE Problems Condition Condition Condition Status Onset Resolution Last Treating Co mments Source Name Details Category Date Date Treatment Clinician Date Obesity, Obesity, Disease Active [place] Class II, Class II, 1-14 th BMI BMI 00:00: 35-39.9 35-39.9 00 Diabetes Diabetes Disease Active UT mellitus mellitus 02-01 Health 00:00: 00 Primary Primary Disease Active 2016-05 UT hypothyroi hypothyroi 0-18 He alth dism dism 00:00: 00 Essential Essential Disease Active 2016-05 UT hypertensi hypertensi 0-18 He alth on on 00:00: 00 Dyslipidem Dyslipidem Disease Active 2016-05 U T ia ia 018 Health 00:00: 00 Type 2 Type 2 Disease Active 2016-05 [facility] diabetes diabetes 0-18 ity of mellitus mellitus 00:00: [place] with with 00 Medical complicati complicati Br anch on, on, without without long-term long-term current current use of use of insulin insulin Onychomyco Onychomyco Disease Active 2016-05 U viviana sis of sis of 0-18 ity of [place] [facility] Allergies, Adverse Reactions, Alerts Allergy Allergy Status Severity Reaction(s) Onset Inactive Treating Comm ents Source Name Type Date Date Clinician NO KNOWN Drug Active Univers ALLERGIE Class ity of S [facility] Social History Social Habit Start Date Stop Date Quantity Comments Source History [facility] Std Drinks History [facility] Alcohol Binge History of tobacco Current smoker [place] Health use Exposure to 2022-03-08 2022-03-18 Not sure [facility] SARS-CoV-2 (event) 00:00:00 08:23:00 Alcohol intake 2022-03-18 2022-03-18 Current drinker of [facility] 00:00:00 00:00:00 alcohol (finding) Tobacco use and 2021-03-19 2021-03-19 Smokeless tobacco [place] [facility] exposure 00:00:00 00:00:00 non-user Alcohol Comment 2021-03-19 2021-03-19 occasional [place] [facility] 00:00:00 00:00:00 Sex Ass[birth year] At [birth year] M [facility] 00:00:00 00:00:00 Smoking Status Start Date Stop Date Source Ex-smoker 2021-03-19 00:00:00 2021-03-19 00:00:00 [place] [facility] Current every day 2017-03-15 00:00:00 [facility] smoker Medical Branch Medications Ordered Filled Start Stop Current Ordering Indication Dosage Frequency Signature Comments Components Source Medication Medication Date Date Medication? Clinician (SIG) Name Name lisinopril 2021-05- No 20mg Take 20 mg UT 20 MG 03-18 by mouth. Health tablet 08:50: 00:00 22 :00 metFORMIN 2021- No 500mg Take 500 UT (Glucophage 3-11 03-11 mg by Health ) 500 MG 11:56: 00:00 mouth. tablet 15 :00 lisinopril 2020-05 Yes 20mg Take 20 mg U T 20 MG 0-22 by mouth. Health tablet 09:: lisinopril 2020-05 Yes 20mg Take 20 mg U T 20 MG 0-22 by mouth. Health tablet :: levothyroxi 2020-05 Yes 175ug QD Take 175 U T ne 0-01 mcg by Health (Synthroid, 00:00: mouth 1 Levoxyl) 00 (one) time 175 MCG each day. tablet levothyroxi 2020-05 Yes 175ug QD Take 175 U T ne 0-01 mcg by Health (Synthroid, 00:00: mouth 1 Levoxyl) 00 (one) time 175 MCG each day. tablet levothyroxi 2020-05 Yes 175ug QD Take 175 U T ne 0-01 mcg by Health (Synthroid, 00:00: mouth 1 Levoxyl) 00 (one) time 175 MCG each day. tablet pantoprazol 2020-05 40mg QD Take 40 mg UT e -11 by mouth 1 [facility] (ProtoNix) 00:00: 00:00 (one) time 40 MG EC 00 :00 each day. tablet levothyroxi 2016-05 Yes 200ug Take 200 U nivers ne 200 mcg 0-18 mcg by ity of tablet 19:43: mouth [place] [id number] every Medical morning. Branch lisinopril 2016-05 Yes 20mg Take 20 mg U nivers 20 mg 0-18 by mouth ity of tablet 19:43: daily. [place] [address] Medical Branch metFORMIN 2016-05 Yes 500mg Take 500 Uni vers 500 mg 0-18 mg by ity of tablet 19:43: mouth 2 [place] [address] (two) Medical times Branch daily with meals. Vital Signs Vital Name Observation Time Observation Value Comments Source Body weight 2022-03-18 13:35:00 85.367 kg [facility] BMI 2022-03-18 13:35:00 27.79 kg/m2 [facility] Systolic blood pressure 2022-03-18 13:35:00 117 mm[Hg] [facility] Diastolic blood pressure 2022-03-18 13:35:00 71 mm[Hg] [facility] Heart rate 2022-03-18 13:35:00 80 /min [facility] Body temperature 2022-03-18 13:35:00 36.67 Marissa [facility] Body height 2022-03-18 13:35:00 175.3 cm [facility] Systolic blood pressure 2021-09-17 13:15:00 116 mm[Hg] [facility] Diastolic blood pressure 2021-09-17 13:15:00 73 mm[Hg] [facility] Heart rate 2021-09-17 13:15:00 60 /min [facility] Body temperature 2021-09-17 13:15:00 36.33 Marissa [facility] Body height 2021-09-17 13:15:00 175.3 cm [facility] Body weight 2021-09-17 13:15:00 91.989 kg [facility] BMI 2021-09-17 13:15:00 29.95 kg/m2 [facility] Systolic blood pressure 2021-08-06 17:06:00 112 mm[Hg] [facility] Diastolic blood pressure 2021-08-06 17:06:00 69 mm[Hg] [facility] Heart rate 2021-08-06 17:06:00 58 /min [facility] Body temperature 2021-08-06 17:06:00 36.61 Marissa [facility] Body height 2021-08-06 17:06:00 175.3 cm [facility] Body weight 2021-08-06 17:06:00 99.338 kg [facility] BMI 2021-08-06 17:06:00 32.34 kg/m2 [facility] Procedures Procedure Date / Time Performed Performing Clinician Sourc e XR CHEST 2 VW 2020-07-10 17:10:56 Renea Garcias [facility] Encounters Start End Encounter Admission Attending Care Care Encounter Source Date/Time Date/Time Type Type Clinicians Facility Department ID 2022-03-21 Outpatient [facility] [id number] [place] 15:46:58 [id number] [facility] 2022-03-11 Outpatient [facility] [id number] [place] 08:53:32 [id number] [facility] 2021-07-01 Outpatient [facility] [id number] [place] 12:46:32 [facility] 2021-05-26 Outpatient [facility] [id number] UT 11:42:43 CESAR grande 2021-02-10 Outpatient ERICKA, [facility] [place] [id number] [place] 14:58:39 CESAR grande 2022-07-01 2022-07-01 Outpatient ERICKA, [facility] [id number] UT 08:30:00 08:30:00 CESAR Gaspar 2022-03-18 2022-03-18 Office Ericka [facility] [id number] [place] 08:30:00 09:01:08 Visit Marcilvinder [facility] [id number] Health [place] [id number] 6 [id number] AND 4 WOMENS 2021-09-17 2021-09-17 Office Ericka, [facility] [id number] [place] 08:30:00 08:31:39 Visit Marcilvinder SU[facility] [id number] Health [place] [id number] 6 [phone] AND 4 WOMENS 2021-08-06 2021-08-06 Office Ericka [facility] [id number] [place] 11:15:00 12:15:00 Visit Kulvinder [place] [id number] Health [place] [id number] 8 [id number] AND 4 WOMENS 2021-07-01 2021-07-01 Office Ericka [facility] [id number] [place] 12:15:00 12:46:50 Visit Kulvinder [place] [id number] Health [place] [id number] 2 [id number] AND 4 WOMENS 2021-06-23 2021-06-25 Outpatient [facility]ICKA [facility] [id number] 05:39:00 10:30:00 MARCIRICKVAL 2021-06-11 2021-06-11 Office Ericka [facility] [id number] [place] 08:00:00 08:35:24 Visit Kulvinder [place] [id number] Health [place] [id number] 0 [id number] AND 4 WOMENS 2021-04-15 2021-04-15 Telephone MARTA Barnett [facility] [id number] [place] 00:00:00 00:00:00 Kulvinder [place] [id number] Health [address] 2 [id number] 2021-04-05 2021-04-05 Nutrition MARTA Gilmore [facility] [id number] [place] 14:07:38 15:05:51 Sherlyn SUGAR [id number] [facility] [place] [id number] [address] 7 [id number] AND 4 WOMENS 2021-04-02 2021-04-02 Orders Justine Dai [facility] [id number] [place] 00:00:00 00:00:00 Only Justine Dai SU[place] [id number] Health [place] [id number] 4 [phone] AND 4 WOMENS 2021-03-19 2021-03-19 Office MARTA Barnett [facility] [id number] [place] 09:07:20 10:04:47 Visit Cesar SU[place] [id number] Health [place] [id number] 6 [phone] AND 4 WOMENS 2020-07-10 2020-07-10 Hospital Radiology [facility] [id number] Univers 11:00:00 23:59:00 [id number] [id number] [id number] [facility] 807 Branch 2020-07-10 2020-07-10 Outpatient R RADIOLOGY [facility] [id number] Univers 11:00:00 11:00:00 [id number] ity [facility] 2020-07-10 2020-07-10 Outpatient R RADIOLOGY [facility] [id number] Univers 00:00:00 00:00:00 [facility] [place] [facility] Results Test Description Test Time Test Comments Results Result [facility] e Comments XR CHEST 2 VW 2020-06-29 EXAM: XR CHEST 2 Unive rsity of 2 VW HISTORY: ACUTE [place] [facility] 17:15:53 BRONCHITIS Branch COMPARISON: None. FINDINGS: The heart and great vessels are normal. Hilar vascular congestion ispresent, and small patchy infiltrations in the right lower lung aresuspicious for pneumonia. ? [facility], Radiant Results Inft User - 07/10/2020 11:17 AM CSTEXAM: XR CHEST 2 VWHISTORY: ACUTE BRONCHITIS COMPARISON: None.FINDINGS:The heart and great vessels are normal. Hilar vascular congestion ispresent, and small patchy infiltrations in the right lower lung aresuspicious for pneumonia.
[2022-05-01] MEDS ORDERED: NA CHLORIDE 0.9% 1,000 ML ONE (14:22)
[2022-05-01] MEDS ORDERED: MORPHINE 4 MG/ML SYR ONE (14:22)
[2022-05-01] MEDS ORDERED: ONDANSETRON 4 MG/2 ML VIAL ONE (14:22)
[2022-05-01 14:39] LABS: Absolute Lymphocytes (CBC) 1.7 K/uL (0.7-4.9); Hematocrit 33.5 % (39.6-49.0); Lymphocytes % 26.4 % (15.3-44.8); MPV 10.1 fL (7.6-11.3)
[2022-05-01] MEDS ORDERED: HYDROMORPHONE HCL 1 MG/ML INJ ONE (14:41)
[2022-05-01 14:58] LABS: Albumin 4.1 g/dL (3.4-5.0); Bilirubin Total 0.6 mg/dL (0.2-1.0); Potassium 3.3 mmol/L (3.5-5.1); Protein, Total 6.7 g/dL (6.4-8.2)
--- NOTE | 2022-05-01 16:10 | RAD REPORT ---
EXAM DESCRIPTION: CT - Abdomen Pelvis W Contrast - 05/01/2022 3:24 pm CLINICAL HISTORY: abd pain COMPARISON: Due to technical malfunction, comparison 2018 study could not be opened. TECHNIQUE: Biphasic, helical CT imaging of the abdomen and pelvis was performed following 100 ml non -ionic IV contrast. Oral contrast: No. All CT scans are performed using dose optimization technique as appropriate and may include automated exposure control or mA/KV adjustment according to patient size. FINDINGS: No suspicious findings in the lung bases. The liver, spleen, and pancreas show no suspicious findings. Gallbladder and biliary tree are also wi thout suspicious finding. Symmetric renal function is seen with no hydronephrosis or suspicious renal mass. No pyelonephritis o r acute parenchymal process. No bladder abnormalities. No adrenal abnormalities. Gastric bypass surgical changes are present. No wall thickening, edema or other acute finding at the proximal or distal anastomotic sites. No dilated large or small bowel. Moderate stool volume seen thr oughout the colon. A focal colon mass or focal colon abnormality not seen. Appendix is not well defin ed. Appendicitis is not suspected. No free air or pneumatosis. No abnormal free fluid collections. There is a mild congested or edemato us appearance to the peritoneal fat. A few scattered mesenteric lymph nodes are present. No bulky lym phadenopathy. No hernia, mass or omental thickening. No suspicious bony findings. IMPRESSION: No obstruction, free air or emergent CT abdomen or pelvis finding. Patient has nonspecific edema of the mesenteric fat and scattered mesenteric lymph nodes. No one larg e mass or bulky lymphadenopathy.
[2022-05-01 16:40] LABS: Urine Blood Negative (Negative); Urine Glucose Negative (Negative); Urine Protein Negative (Negative); Urine pH 6.5 (5.0-7.0)
--- NOTE | 2022-05-01 17:41 | ER ---
Nurse's Notes [facility] Name: Get Sloan Age: 51 yrs Sex: Male : 1970 Arrival Date: 05/01/2022 Time: 13:52 Bed 11 Private MD: Diagnosis: Abdominal pain, Generalized Presentation: 05/01 14:08 Chief complaint: Patient states: Diffuse abdominal pain - radiate to KELLI Flank, worse ld1 on left side. Pain began at noon. Coronavirus screen: At this time, the client does not indicate any symptoms associated with coronavirus-19. Ebola Screen: No symptoms or risks identified at this time. Initial Sepsis Screen: Does the patient meet any 2 criteria? No. Patient's initial sepsis screen is negative. Does the patient have a suspected source of infection? No. Patient's initial sepsis screen is negative. Risk Assessment: Do you want to hurt yourself or someone else? Patient reports no desire to harm self or others. Onset of symptoms was May 01, 2022. 14:08 Method Of Arrival: Ambulatory ld1 14:08 Acuity: ANTONIO 3 ld1 Triage Assessment: 14:09 General: Appears in no apparent distress. comfortable, Behavior is calm, cooperative, ld1 appropriate for age. Pain: Complains of pain in abdomen Pain radiates to low back area Pain currently is 8 out of 10 on a pain scale. Quality of pain is described as throbbing. EENT: No signs and/or symptoms were reported regarding the EENT system. Neuro: Level of Consciousness is awake, alert, obeys commands, Oriented to person, place, time, situation. Cardiovascular: Capillary refill < 3 seconds Patient's skin is warm and dry. Respiratory: Airway is patent Respiratory effort is even, unlabored. GI: Abdomen is flat, non-distended, Reports lower abdominal pain, upper abdominal pain, nausea, vomiting. : No signs and/or symptoms were reported regarding the genitourinary system. Derm: No signs and/or symptoms reported regarding the dermatologic system. Derm: Historical: - Allergies: 14: No Known Allergies; ld1 - PMHx: 14:09 Diabetes - IDDM; Hypertension; Hypothyroidism; ld1 - PSHx: 14:09 Gastric bypass; ld1 - Immunization history:: Adult Immunizations up to date, Client reports receiving the 2nd dose of the Covid vaccine. - Social history:: Smoking status: Patient denies any tobacco usage or history of. Patient/guardian denies using alcohol. Screenin:47 Abuse screen: Denies threats or abuse. Denies injuries from another. Nutritional iw screening: No deficits noted. Tuberculosis screening: No symptoms or risk factors identified. Fall Risk IV access (20 points). Assessment: 14:40 Reassessment: pt still 10/10 pain, restless in bed, BOOKER Anaya notified, new orders iw given. Vital Signs: 14:08 BP 145 / 74; Pulse 103; Resp 20; Temp 97.0(TE); Pulse Ox 99% on R/A; Weight 83.91 kg; ld1 Height 5 ft. 10 in. (177.80 cm); Pain 8/10; 14:40 BP 129 / 85; Pulse 62; Resp 16; Pulse Ox 98% on R/A; Pain 10/10; iw 14:08 Body Mass Index 26.54 (83.91 kg, 177.80 cm) ld1 ED Course: 13:52 Patient arrived in ED. rg4 13:54 Jaclyn Hunt FNP-C [facility]. kb 13:54 Fahad Dai MD is Attending Physician. kb 14:09 Triage completed. ld1 14:09 Arm band placed on left wrist. ld1 14:19 Emmy Corrigan, RN is Primary Nurse. iw 14:20 Initial lab(s) drawn, by me, sent to lab. Inserted saline lock: 20 gauge in right iw wrist, using aseptic technique. Blood collected. 15:25 CT Abd/Pelvis - IV Contrast Only In Process Unspecified. EDMS 17:51 No provider procedures requiring assistance completed. IV discontinued, intact, ld1 bleeding controlled, No redness/swelling at site. Administered Medications: 14:26 Drug: NS 0.9% 1000 ml Route: IV; Rate: 1 bolus; Site: right wrist; iw 14:26 Drug: Zofran (Ondansetron) 4 mg Route: IVP; Site: right wrist; iw 14:27 Drug: morphine 4 mg Route: IVP; Infused Over: 4 mins; Site: right wrist; iw 14:41 Follow up: Response: No adverse reaction; Pain is unchanged, physician notified; RASS: iw Restless (+1) 14:47 Drug: Dilaudid (HYDROmorphone) 1 mg Route: IVP; Site: right wrist; iw Medication: 17:51 VIS not applicable for this client. ld1 Outcome: 17:40 Discharge ordered by . girma 17:51 Discharged to home ambulatory, with family. ld1 17:51 Condition: stable 17:51 Discharge instructions given to patient, family, Instructed on discharge instructions, follow up and referral plans. medication usage, Demonstrated understanding of instructions, follow-up care, medications, Prescriptions given X 2. 17:51 Patient left the ED. ld1 Signatures: Dispatcher [employer] EDMS Jaclyn Hunt, RESPIRATORY EQUIPMENT ASSISTANT-C RESPIRATORY EQUIPMENT ASSISTANT-Emmy Canela RN RN iw Yoanna Diaz rg4 Madonna Croft, NOREEN RN ld1 Corrections: (The following items were deleted from the chart) 14:48 14:40 BP 129 / 85; Pulse 89bpm; Resp 16bpm; Pulse Ox 98% RA; Pain 10/10; iw iw
--- NOTE | 2022-05-01 17:41 | EDPHYS ---
Physician Documentation [facility] Name: Get Sloan Age: 51 yrs Sex: Male : 1970 Arrival Date: 05/01/2022 Time: 13:52 Bed 11 Private MD: ED Physician Fahad Dai HPI: 05/01 14:39 This 51 yrs old Male presents to ER via Ambulatory with complaints of kb Abdominal Pain, Flank Pain. 14:39 The patient presents with abdominal pain that is diffuse. Onset: The symptoms/episode kb began/occurred at 12:00. The symptoms radiate to both flanks. Associated signs and symptoms: Pertinent positives: nausea and vomiting. The symptoms are described as constant. Modifying factors: The symptoms are alleviated by nothing, the symptoms are aggravated by nothing. Severity of pain: At its worst the pain was severe in the emergency department the pain is unchanged. The patient has not experienced similar symptoms in the past. The patient has not recently seen a physician. Historical: - Allergies: 14:09 No Known Allergies; ld1 - PMHx: 14:09 Diabetes - IDDM; Hypertension; Hypothyroidism; ld1 - PSHx: 14:09 Gastric bypass; ld1 - Immunization history:: Adult Immunizations up to date, Client reports receiving the 2nd dose of the Covid vaccine. - Social history:: Smoking status: Patient denies any tobacco usage or history of. Patient/guardian denies using alcohol. ROS: 14:38 Constitutional: Negative for fever, chills, and weight loss. kb 14:38 Abdomen/GI: Positive for abdominal pain, nausea and vomiting. 14:38 Back: Positive for flank pain, bilaterally. 14:38 All other systems are negative. Exam: 14:38 Constitutional: This is a well developed, well nourished patient who is awake, alert, kb and in no acute distress. Head/Face: Normocephalic, atraumatic. ENT: Moist Mucous membranes Cardiovascular: Regular rate and rhythm with a normal S1 and S2. No gallops, murmurs, or rubs. No pulse deficits. Respiratory: Respirations even and unlabored. No increased work of breathing. Talking in full sentences Skin: Warm, dry with normal turgor. Normal color. MS/ Extremity: Pulses equal, no cyanosis. Neurovascular intact. Full, normal range of motion. Neuro: Awake and alert, GCS 15, oriented to person, place, time, and situation. Moves all extremities. Normal gait. Psych: Awake, alert, with orientation to person, place and time. Behavior, mood, and affect are within normal limits. 14:38 Abdomen/GI: Inspection: abdomen appears normal, Bowel sounds: normal, in all quadrants, Palpation: soft, in all quadrants, moderate abdominal tenderness, in all quadrants. 14:38 Back: CVA tenderness, that is moderate, is noted bilaterally. Vital Signs: 14:08 BP 145 / 74; Pulse 103; Resp 20; Temp 97.0(TE); Pulse Ox 99% on R/A; Weight 83.91 kg; ld1 Height 5 ft. 10 in. (177.80 cm); Pain 8/10; 14:40 BP 129 / 85; Pulse 62; Resp 16; Pulse Ox 98% on R/A; Pain 10/10; iw 14:08 Body Mass Index 26.54 (83.91 kg, 177.80 cm) ld1 MDM: 14:06 Patient medically screened. 14:39 Data reviewed: vital signs, nurses notes. Data interpreted: Pulse oximetry: on room air kb is 99 %. Interpretation: normal. 17:40 Data reviewed: I have discussed the patient's presentation/case with the attending Emergency Department Physician;. Counseling: I had a detailed discussion with the patient and/or guardian regarding: the historical points, exam findings, and any diagnostic results supporting the discharge/admit diagnosis, lab results, radiology results, the need for outpatient follow up, a family practitioner, to return to the emergency department if symptoms worsen or persist or if there are any questions or concerns that arise at home. 05/01 14:08 Order name: CBC with Diff; Complete Time: 14:46 kb 05/01 14:08 Order name: CMP; Complete Time: 15:01 kb 05/01 14:08 Order name: Lipase; Complete Time: 15:01 kb 05/01 14:08 Order name: CT Abd/Pelvis - IV Contrast Only; Complete Time: 16:12 kb 05/01 16:13 Order name: Lactate w/ 2H reflex if indic.; Complete Time: 17:03 kb 05/01 16:41 Order name: Urine Dipstick-Ancillary; Complete Time: 16:42 EDMS 05/01 14:08 Order name: IV Saline Lock; Complete Time: 14:19 kb 05/01 14:08 Order name: Labs collected and sent; Complete Time: 14:19 kb 05/01 14:08 Order name: Urine Dipstick-Ancillary (obtain specimen); Complete Time: 16:30 kb Administered Medications: 14:26 Drug: NS 0.9% 1000 ml Route: IV; Rate: 1 bolus; Site: right wrist; iw 14:26 Drug: Zofran (Ondansetron) 4 mg Route: IVP; Site: right wrist; iw 14:27 Drug: morphine 4 mg Route: IVP; Infused Over: 4 mins; Site: right wrist; iw 14:41 Follow up: Response: No adverse reaction; Pain is unchanged, physician notified; RASS: iw Restless (+1) 14:47 Drug: Dilaudid (HYDROmorphone) 1 mg Route: IVP; Site: right wrist; iw Disposition Summary: 05/01/22 17:40 Discharge Ordered Location: Home kb Condition: Stable kb Diagnosis - Abdominal pain, Generalized kb Followup: kb - With: Emergency Department - When: As needed - Reason: Worsening of condition Followup: kb - With: Private Physician - When: 2 - 3 days - Reason: Recheck today's complaints, Continuance of care, Re-evaluation by your physician Discharge Instructions: - Discharge Summary Sheet kb - Abdominal Pain, Adult, [id number] kb Forms: - Medication Reconciliation Form kb - Thank You Letter kb - Antibiotic Education kb - Prescription Opioid Use kb - Work release form iw Prescriptions: - Zofran 4 mg Oral Tablet - take 1 tablet by ORAL route every 6 hours As needed; 20 tablet; Refills: 0, kb Product Selection Permitted - dicyclomine 20 mg Oral Tablet - take 1 tablet by ORAL route 4 times per day As needed; 20 tablet; Refills: 0, kb Product Selection Permitted Signatures: Dispatcher [employer] Jaclyn Friedman, KAPIL GALLARDO-Emmy Canela, RN RN iw Madonna Croft RN RN ld1
[2022-05-01 18:23] VITALS: TEMP 97
[2022-05-01 18:29] VITALS: BP 129/85; O2SAT 98
== END 2022-05-01 17:51 | disposition home or self-care (01) ==
LOC: ER 13:47
DX: R10.84 Generalized abdominal pain (principal); E11.9 Type 2 diabetes mellitus without complications; I10 Essential (primary) hypertension
CPT/HCPCS: 85025; 36415; 83605; 81003; 83690; 80053; 74177; 96375; 96374; 99284; Q9967; J1170; J7030; J2405

== ENCOUNTER 2022-07-10 09:56 | Emergency (ER) | payer BC ==
--- OUTSIDE RECORDS SUMMARY | 2022-07-10 09:59 | XMS REPORT | Continuity of Care Document ---
:1970 Author Organization [facility] t Address [address] [place] [address] Care Team Providers Name Role Phone Mayte Garcias Primary Care Physician CESAR BARNETT Attending Clinician Unavailable CESAR BARNETT S Attending Clinician Unavailable Sherlyn Gilmore RD Attending Clinician Justine Dai MA Attending Clinician Unavailable Radiology Attending Clinician Unavailable RADIOLOGY Attending Clinician Unavailable Payers Payer Name Policy Type Policy Number Effective Date Expiration Date S ourjessica BCBSTX PPO AND [id number] 2020 00:00:00 OUT OF STATE Problems Condition Condition Condition Status Onset Resolution Last Treating Co mments Source Name Details Category Date Date Treatment Clinician Date Obesity, Obesity, Disease Active [place] Class II, Class II, 1-14 Heal th BMI BMI 00:00: 35-39.9 35-39.9 00 [...] Type 2 Type 2 Disease Active 2016-05 Univers diabetes diabetes 0-18 ity of mellitus mellitus 00:00: [place] with with 00 Medical complicati complicati Br anch on, on, without without long-term long-term current current use of use of insulin insulin Onychomyco Onychomyco Disease Active 2016-05 U nivers sis of sis of 0-18 [place]y [place] 00 [facility] Allergies, Adverse Reactions, Alerts Allergy Allergy Status Severity Reaction(s) Onset Inactive Treating Comm ents Source Name Type Date Date Clinician NO KNOWN Drug Active Univers ALLERGIE Class ity of S [facility] Social History Social Habit Start Date Stop Date Quantity Comments Source History [facility] Alcohol Frequency History [facility] Alcohol Std Drinks History [facility] Alcohol Binge History of tobacco Current smoker [facility] use Exposure to 2022-03-08 2022-03-18 Not sure [facility] SARS-CoV-2 (event) 00:00:00 08:23:00 Alcohol intake 2022-03-18 2022-03-18 Current drinker of [facility] 00:00:00 00:00:00 alcohol (finding) Tobacco use and 2021-03-19 2021-03-19 Smokeless tobacco [facility] exposure 00:00:00 00:00:00 non-user Alcohol Comment 2021-03-19 2021-03-19 occasional [place] [facility] 00:00:00 00:00:00 Sex Ass[birth year] At [birth year] M [facility] 00:00:00 00:00:00 Smoking Status Start Date Stop Date Source Ex-smoker 2021-03-19 00:00:00 2021-03-19 00:00:00 [place] [facility] Current every day 2017-03-15 00:00:00 [facility] smoker Medical Branch Medications Ordered Filled Start [...] 20 MG 0-22 by mouth. Health tablet 09:21: lisinopril 2020-05 Yes 20mg Take 20 mg U T 20 MG 0-22 by mouth. Health tablet 09:21: 26 levothyroxi 2020-05 Yes 175ug QD Take 175 [...] 40mg QD Take 40 mg UT e 0-05 31-11 by mouth 1 [facility] ([employer]) 00:00: 00:00 (one) time 40 MG EC 00 :00 each day. tablet levothyroxi 2016-05 Yes 200ug Take 200 U nivers ne 200 mcg 0-18 mcg by ity of tablet 19:43: mouth [place] [id number] every Medical morning. Branch lisinopril 2016-05 Yes 20mg Take 20 mg U nivers 20 mg 0-18 by mouth ity of tablet 19:43: daily. [place] [address] Medical Branch metFORMIN 2016-05 Yes 500mg Take 500 Uni vers 500 mg 0-18 mg by ity of tablet 19:43: mouth 2 [place] [address] (two) Medical times Branch daily with meals. Vital Signs Vital Name Observation Time Observation Value Comments Source Systolic blood pressure 2022-03-18 13:35:00 117 mm[Hg] [facility] Diastolic blood pressure 2022-03-18 13:35:00 71 mm[Hg] [facility] Heart rate 2022-03-18 13:35:00 80 /min [facility] Body temperature 2022-03-18 13:35:00 36.67 Marissa [facility] Body height 2022-03-18 13:35:00 [facility]3 [facility] 2022-03-18 13:35:00 85.367 kg [facility] BMI 2022-03-18 13:35:00 27.79 kg/m2 [facility] Systolic blood pressure 2021-09-17 [...] CHEST 2 VW 2020-07-10 17:10:56 Renea Garcias [facility] Encounters Start End Encounter Admission Attending Care Care Encounter Source Date/Time Date/Time Type Type Clinicians Facility Department ID 2022-07-01 Outpatient [facility] [id number] [place] 07:30:56 [id number] [facility] 2022-06-29 Outpatient [facility] [id number] [place] 12:12:12 [id number] [facility] 2022-06-17 Outpatient [facility] [id number] [place] 14:04:17 [id number] [facility] 2022-03-21 Outpatient [facility] [id number] [place] 15:46:58 [id number] [facility] 2022-03-11 Outpatient [facility] [id number] [place] 08:53:32 [id number] Health 2021-07-01 Outpatient ERICKA, [facility] [id number] [place] 12:46:32 CESAR Roland 2021-05-26 Outpatient ERICKA, [facility] [id number] [place] 11:42:43 CESAR Roland 2021-02-10 Outpatient ERICKA, [facility] [id number] [place] 14:58:39 [facility] 2022-09-30 2022-09-30 Outpatient ERICKA, [facility] [id number] [place] 08:30:00 08:30:00 CESAR [facility] 2022-07-01 2022-07-01 Outpatient ERICKA, [facility] [id number] [place] 08:30:00 08:47:23 CESAR [facility] 2022-06-24 2022-06-24 Outpatient ERICKA, FB DESTINEY [id number] [facility] 11:09:00 13:57:00 MARCIVAL 2022-03-18 2022-03-18 Office Eric[address] [facility] [id number] [place] 08:30:00 09:01:08 Visit Kulvinder SUGAR [id number] Health [place] [id number] [place] 9 [phone] AND 4 WOMENS 2021-09-17 2021-09-17 Office Ericka [facility] [id number] [place] 08:30:00 08:31:39 Visit Kulvinder SUGAR [id number] Health [place] [id number] [place] 9 [phone] AND 4 WOMENS 2021-08-06 2021-08-06 Office Ericka [facility] [id number] [place] 11:15:00 12:15:00 Visit Kulvinder SUGAR [id number] Health [place] [id number] [place] 2 [id number] AND 4 WOMENS 2021-07-01 2021-07-01 Office Ericka [facility] [id number] [place] 12:15:00 12:46:50 Visit Kulvinder SUGAR [id number] Health [place] [id number] [address] 9 [id number] AND 4 WOMENS 2021-06-23 2021-06-[address] [facility] DESTINEY [id number] [facility] 05:39:00 10:30:00 CESAR 2021-06-11 2021-06-11 Office Eric[address] [facility] [id number] [place] 08:00:00 08:35:24 Visit Kulvinder SUGAR [id number] Health [place] [id number] [place] 3 [id number] AND 4 WOMENS 2021-04-15 2021-04-15 Tele[address] Eric[address] [facility] [id number] [place] 00:00:00 00:00:00 Kulvinder [place] [id number] Health PLA[place] 2 [id number] 2021-04-05 2021-04-05 Nutrition Deirdre [facility] [id number] [place] 14:07:38 15:05:51 Sherlyn SUGAR [id number] [facility] [place] [id number] [place] 3 [phone] AND 4 WOMENS 2021-04-02 2021-04-02 Orders Justine Dai [facility] [id number] [place] 00:00:00 00:00:00 Only Justine Dai SUGAR [id number] Health [place] [id number] [place] 9 [id number] AND 4 WOMENS 2021-03-19 2021-03-19 Office Ericka [facility] [id number] [place] 09:07:20 10:04:47 Visit Kulvinder SUGAR [id number] Health [place] [id number] 6 [id number] AND 4 WOMENS 2020-07-10 2020-07-10 Hospital Radiology [facility] [id number] Univers 11:00:00 23:59:00 Encounter Haily [id number] ity [facility] [id number] [facility] [id number] [facility] 807 Branch 2020-07-10 2020-07-10 Outpatient R RADIOLOGY [facility] [id number] Univers 11:00:00 11:00:00 [id number] ity of [facility] 2020-07-10 2020-07-10 Outpatient R RADIOLOGY [facility] [id number] Univers [facility] Test Description Test Time Test Comments Results Result Sourc e Comments XR CHEST 2 VW 2020-06-29 EXAM: XR CHEST 2 Unive rsity of 2 VW HISTORY: ACUTE [facility] edical 17:15:53 BRONCHITIS Branch COMPARISON: None. FINDINGS: The heart and great vessels are normal. Hilar vascular congestion ispresent, and small patchy infiltrations in the right lower lung aresuspicious for pneumonia. ? [facility] Radiant Results Inft User - 07/10/2020 11:17 AM CSTEXAM: XR CHEST 2 VWHISTORY: ACUTE BRONCHITIS COMPARISON: None.FINDINGS:The heart and great vessels are normal. Hilar vascular congestion ispresent, and small patchy infiltrations in the right lower lung aresuspicious for pneumonia.
[2022-07-10] MEDS ORDERED: ONDANSETRON 4 MG/2 ML VIAL ONE (11:14)
[2022-07-10] MEDS ORDERED: NA CHLORIDE 0.9% 1,000 ML ONE (11:14)
[2022-07-10] MEDS ORDERED: MORPHINE 4 MG/ML SYR ONE (11:14)
[2022-07-10 11:34] LABS: Absolute Lymphocytes (CBC) 0.7 K/uL (0.7-4.9); Hematocrit 35.2 % (39.6-49.0); Lymphocytes % 9.1 % (15.3-44.8); MCV 90.3 fL (80-100); MPV 10.2 fL (7.6-11.3)
[2022-07-10 11:50] LABS: Bilirubin Total 0.5 mg/dL (0.2-1.0); Potassium 3.4 mmol/L (3.5-5.1); Protein, Total 6.6 g/dL (6.4-8.2)
--- NOTE | 2022-07-10 11:52 | RAD REPORT ---
EXAM DESCRIPTION: CTAbdomen Pelvis W Contrast - 07/10/2022 11:40 am CLINICAL HISTORY: Abdominal pain. ABD PAIN COMPARISON: Abdomen Pelvis W Contrast dated 05/01/2022; Abdomen Pelvis W Contrast dated 01/31/2018 TECHNIQUE: Biphasic CT imaging of the abdomen and pelvis was performed with 100 ml non-ionic IV cont rast. All CT scans are performed using dose optimization technique as appropriate and may include automated exposure control or mA/KV adjustment according to patient size. FINDINGS: The lung bases are clear.Postsurgical changes are present of cholecystectomy. Postsurgical changes are present of gastric bypass. The liver, spleen, pancreas, adrenal glands and kidneys are within normal limits. No bowel obstruction is seen. There is an edematous appearance to the small bowel mesentery left aspe ct of the abdomen. No free air seen. No free fluid. Normal appendix. No evidence of significant lym phadenopathy. No suspicious bony findings. IMPRESSION: Small bowel loops and adjacent mesenteric fat shows edema predominately in the left abdo men. This can be seen in cases of internal hernia. No bowel obstruction is present.
--- NOTE | 2022-07-10 13:55 | ER ---
Nurse's Notes [facility] Name: Get Sloan Age: 52 yrs Sex: Male : 1970 Arrival Date: 07/10/2022 Time: 09:58 Bed 7 Private MD: Diagnosis: Vomiting;Abdominal pain, unspecified Presentation: 07/10 10:07 Chief complaint: EMS states: picked up from home with abdominal pain LUQ pain and db vomiting started this AM after eating toast and coffee. With belching and mostly nausea. Hx of gastric bypass May 2021. Recent diagnosis of H Pylori and taking antibiotics. Coronavirus screen: Client denies travel out of the [place] in the last 14 days. At this time, the client does not indicate any symptoms associated with coronavirus-19. Ebola Screen: Patient negative for fever greater than or equal to 101.5 degrees Fahrenheit, and additional compatible Ebola Virus Disease symptoms Patient denies exposure to infectious person. Patient denies travel to an Ebola-affected area in the 21 days before illness onset. No symptoms or risks identified at this time. Initial Sepsis Screen: Does the patient meet any 2 criteria? No. Patient's initial sepsis screen is negative. Does the patient have a suspected source of infection? No. Patient's initial sepsis screen is negative. Risk Assessment: Do you want to hurt yourself or someone else? Patient reports no desire to harm self or others. Onset of symptoms was July 10, 2022. 10:07 Method Of Arrival: EMS db 10:07 Acuity: ANTONIO 3 db Triage Assessment: 10:10 General: Appears in no apparent distress. uncomfortable, Behavior is cooperative. Pain: db Complains of pain in abdomen. Historical: - Allergies: 11:40 No Known Allergies; ph - PMHx: 10:10 Diabetes - IDDM; Hypertension; Hypothyroidism; h pylori; db - PSHx: 10:10 Gastric Bypass; db - Immunization history:: Client reports receiving the 2nd dose of the Covid vaccine. - Social history:: Smoking status: Patient denies any tobacco usage or history of. Screenin:39 [facility] ED Fall Risk Assessment (Adult) History of falling in the last 3 months, ph including since admission No falls in past 3 months (0 pts) Confusion or Disorientation No (0 pts) Intoxicated or Sedated No (0 pts) Impaired Gait No (0 pts) Mobility Assist Device Used No (0 pt) Altered Elimination No (0 pt) Score/Fall Risk Level 0 - 2 = Low Risk Oriented to surroundings, Maintained a safe environment, Hourly rounding (assess needs \T\ fall precautionary measures) done. Abuse screen: Denies threats or abuse. Denies injuries from another. Nutritional screening: No deficits noted. Tuberculosis screening: No symptoms or risk factors identified. Assessment: 11:39 General: Appears in no apparent distress. uncomfortable, slender, well groomed, ph Behavior is calm, cooperative, appropriate for age. Pain: Complains of pain in left upper quadrant and left lower quadrant. Neuro: Level of Consciousness is awake, alert, obeys commands, Oriented to person, place, time, situation. Cardiovascular: Capillary refill < 3 seconds in bilateral fingers Patient's skin is warm and dry. Respiratory: Airway is patent Respiratory effort is even, unlabored. GI: Reports lower abdominal pain, upper abdominal pain, nausea, vomiting. Derm: Skin is healthy with good turgor, Skin is pink, warm \T\ dry. Musculoskeletal: Circulation, motion, and sensation intact. Range of motion: intact in all extremities. 14:25 Reassessment: No changes from previously documented assessment. Patient and/or family ll1 updated on plan of care and expected duration. Pain level reassessed. Patient is alert, oriented x 3, equal unlabored respirations, skin warm/dry/pink. Patient states feeling better. Vital Signs: 10:07 BP 131 / 86; Pulse 60; Resp 16; Temp 97.8(O); Pulse Ox 100% on R/A; Weight 83.91 kg; db Height 5 ft. 10 in. (177.80 cm); Pain 9/10; 12:41 BP 123 / 72; Pulse 54; Resp 18; Pulse Ox 98% on R/A; ph 14:25 BP 106 / 66; Pulse 55; Resp 17; Pulse Ox 98% ; Pain 0/10; ll1 10:07 Body Mass Index 26.54 (83.91 kg, 177.80 cm) db ED Course: 09:58 Patient arrived in ED. eb 09:59 Beck Brothers PA is PHCP. [facility] 09:59 Fahad Dai MD is Attending Physician. jmm 10:10 Triage completed. db 10:10 Arm band placed on Patient placed in an exam room. db 10:24 Emmie Casillas, RN is Primary Nurse. ph 11:15 Initial lab(s) drawn, by me, sent to lab. Maintain EMS IV. Dressing intact. Good blood ph return noted. Site clean \T\ dry. Gauge \T\ site: 20 LAC. 11:40 Patient has correct armband on for positive identification. Bed in low position. Call ph light in reach. Side rails up X 1. Pulse ox on. NIBP on. Door closed. Noise minimized. Warm blanket given. 13:54 Akil Ferrell MD is Referral Physician. [facility] 14:26 No provider procedures requiring assistance completed. IV discontinued, intact, ll1 bleeding controlled, No redness/swelling at site. Pressure dressing applied. Administered Medications: 11:30 Drug: NS 0.9% 1000 ml Route: IV; Rate: 1 bolus; Site: left antecubital; ph 14:26 Follow up: Response: No adverse reaction; IV Status: Completed infusion; IV Intake: ll1 1000ml 11:30 Drug: Zofran (Ondansetron) 4 mg Route: IVP; Site: left antecubital; ph 12:42 Follow up: Response: No adverse reaction ph 11:32 Drug: morphine 4 mg Route: IVP; Infused Over: 4 mins; Site: left antecubital; ph 12:42 Follow up: Response: No adverse reaction; Pain is decreased; RASS: Alert and Calm (0) ph 14:26 Follow up: Response: No adverse reaction; Pain is decreased; RASS: Alert and Calm (0) ll1 Medication: 11:40 VIS not applicable for this client. ph Intake: 14:26 IV: 1000ml; Total: 1000ml. ll1 Outcome: 13:55 Discharge ordered by . [facility] 14:26 Discharged to home ambulatory. ll1 14:26 Condition: stable 14:26 Discharge instructions given to patient, Instructed on discharge instructions, follow up and referral plans. medication usage, Demonstrated understanding of instructions, follow-up care, medications, Prescriptions given X 1. 14:27 Patient left the ED. ll1 Signatures: Beck Brothers PA PA jmm Hall, Patricia, RN RN Nunu Munson Lynsay, RN RN ll1 Khusbhu Jaimes, RN RN db
--- NOTE | 2022-07-10 13:55 | EDPHYS ---
Physician Documentation [facility] Name: Get Sloan Age: 52 yrs Sex: Male : 1970 Arrival Date: 07/10/2022 Time: 09:58 Bed 7 Private MD: SOFIE Physician Fahad Dai HPI: 07/10 13:51 This 52 yrs old Male presents to ER via EMS with complaints of abdominal pain. jmm 13:51 The patient presents with abdominal pain. Onset: The symptoms/episode began/occurred jmm acutely, just prior to arrival. The symptoms do not radiate. Associated signs and symptoms: Pertinent positives: nausea and vomiting. Is a 52-year-old male with history of diabetes mellitus, hypertension, hypothyroidism the presents emerged part with complaints of cute onset of epigastric pain beginning just prior to arrival. Patient is 1 year status post a gastric bypass. Patient is also had a cholecystectomy.. Historical: - Allergies: 11:40 No Known Allergies; ph - PMHx: 10:10 Diabetes - IDDM; Hypertension; Hypothyroidism; h pylori; db - PSHx: 10:10 Gastric Bypass; db - Immunization history:: Client reports receiving the 2nd dose of the Covid vaccine. - Social history:: Smoking status: Patient denies any tobacco usage or history of. ROS: 13:51 Constitutional: Negative for fever, chills, and weight loss, Cardiovascular: Negative jmm for chest pain, palpitations, and edema, Respiratory: Negative for shortness of breath, cough, wheezing, and pleuritic chest pain. 13:51 Abdomen/GI: Positive for abdominal pain, nausea and vomiting. 13:51 All other systems are negative. Exam: 13:51 Constitutional: This is a well developed, well nourished patient who is awake, alert, jmm and in no acute distress. Head/Face: atraumatic. Eyes: EOMI, no conjunctival erythema appreciated ENT: Moist Mucus Membranes Neck: Trachea midline, Supple Chest/axilla: Normal chest wall appearance and motion. Cardiovascular: Regular rate and rhythm. No edema appreciated Respiratory: Normal respirations, no respiratory distress appreciated 13:51 Back: Normal ROM Skin: General appearance color normal MS/ Extremity: Moves all extremities, no obvious deformities appreciated, no edema noted to the lower extremities Neuro: Awake and alert Psych: Behavior is normal, Mood is normal, Patient is cooperative and pleasant 13:51 Abdomen/GI: Inspection: abdomen appears normal, Bowel sounds: normal, Palpation: soft, mild abdominal tenderness, in the epigastric area and left upper quadrant. Vital Signs: 10:07 BP 131 / 86; Pulse 60; Resp 16; Temp 97.8(O); Pulse Ox 100% on R/A; Weight 83.91 kg; db Height 5 ft. 10 in. (177.80 cm); Pain 9/10; 12:41 BP 123 / 72; Pulse 54; Resp 18; Pulse Ox 98% on R/A; ph 14:25 BP 106 / 66; Pulse 55; Resp 17; Pulse Ox 98% ; Pain 0/10; ll1 10:07 Body Mass Index 26.54 (83.91 kg, 177.80 cm) db MDM: 10:09 Patient medically screened. [facility] 13:51 Data reviewed: vital signs, nurses notes. I considered the following discharge [facility] prescriptions or medication management in the emergency department Medications were administered in the Emergency Department. See MAR. Historians other than the Patient: . Counseling: I had a detailed discussion with the patient and/or guardian regarding: the historical points, exam findings, and any diagnostic results supporting the discharge/admit diagnosis, lab results, radiology results, the need for outpatient follow up, to return to the emergency department if symptoms worsen or persist or if there are any questions or concerns that arise at home. ED course: Patient is alert nontoxic in appearance in the ED. Patient states feeling much better. Is now able to tolerate p.o. without difficulty. CT did not reveal bowel obstruction. Advised to follow-up with surgery/GI for reevaluation otherwise given strict return precautions. Patient understood and agrees plan of care. 07/10 10:02 Order name: CBC with Diff [facility] 07/10 10:02 Order name: CMP [facility] 07/10 10:02 Order name: Lipase [facility] 07/10 10:14 Order name: Lactate w/ 2H reflex if indic. [facility] 07/10 11:36 Order name: CBC with Automated Diff; Complete Time: 12:20 EDMS 07/10 11:50 Order name: Comprehensive Metabolic Panel; Complete Time: 12:20 EDMS 07/10 10:13 Order name: CT Abd/Pelvis - PO and IV Contrast [facility] 02/12 11:50 Order name: Lipase; Complete Time: 12:20 [facility] 07/10 11:50 Order name: Lactate w/ 2H reflex if indic.; Complete Time: 12:20 [facility] 07/10 11:52 Order name: CT; Complete Time: 12:20 [facility] 07/10 10:02 Order name: IV Saline Lock; Complete Time: 11:37 [facility] 07/10 10:02 Order name: Labs collected and sent; Complete Time: 11:37 [facility] Administered Medications: 11:30 Drug: NS 0.9% 1000 ml Route: IV; Rate: 1 bolus; Site: left antecubital; ph 14:26 Follow up: Response: No adverse reaction; IV Status: Completed infusion; IV Intake: ll1 1000ml 11:30 Drug: Zofran (Ondansetron) 4 mg Route: IVP; Site: left antecubital; ph 12:42 Follow up: Response: No adverse reaction ph 11:32 Drug: morphine 4 mg Route: IVP; Infused Over: 4 mins; Site: left antecubital; ph 12:42 Follow up: Response: No adverse reaction; Pain is decreased; RASS: Alert and Calm (0) ph 14:26 Follow up: Response: No adverse reaction; Pain is decreased; RASS: Alert and Calm (0) ll1 Disposition Summary: 07/10/22 13:55 Discharge Ordered Location: Home [facility] Condition: Stable [facility] Diagnosis - Vomiting jmm - Abdominal pain, unspecified jmm Followup: [facility] - With: Akil Ferrell MD - When: 2 - 3 days - Reason: Recheck today's complaints, Continuance of care, Re-evaluation by your physician Discharge Instructions: - Discharge Summary Sheet jmm - Abdominal Pain, Adult jmm - Vomiting, Adult jmm - Clear Liquid Diet, Adult jmm - Laparoscopic Gastric Bypass Surgery [facility] Forms: - Medication Reconciliation Form [facility] - Thank You Letter [facility] - Antibiotic Education [facility] - Prescription Opioid Use [facility] - Work release form ph Prescriptions: - ondansetron 4 mg Oral tablet,disintegrating - take 1 tablet by ORAL route every 4-6 hours As needed; 20 tablet; Refills: 0, jmm Product Selection Permitted Signatures: Dispatcher [employer] Beck Vuong PA PA jmm Emmie Casillas RN RN ph Khushbu Jaimes RN RN db Myles Barnes RN ll1
[2022-07-10 14:33] VITALS: TEMP 97.8
[2022-07-10 14:34] VITALS: O2SAT 98
[2022-07-10 14:35] VITALS: BP 106/66
== END 2022-07-10 14:27 | disposition home or self-care (01) ==
LOC: ER 09:56
DX: R10.13 Epigastric pain (principal); R11.10 Vomiting, unspecified; E11.9 Type 2 diabetes mellitus without complications; I10 Essential (primary) hypertension; Z98.84 Bariatric surgery status
CPT/HCPCS: 96361; 85025; 36415; 82565; 83605; 83690; 80053; 74177; 96375; 96374; 99284; Q9967; J7030; J2405

== ENCOUNTER 2024-05-05 05:36 | Emergency (ER) | payer BC, SELFPAY ==
[2024-05-05] MEDS ORDERED: KETOROLAC 30 MG/ML INJ ONE (05:56)
[2024-05-05] MEDS ORDERED: ONDANSETRON 4 MG/2 ML VIAL ONE (05:56)
[2024-05-05] MEDS ORDERED: NA CHLORIDE 0.9% 1,000 ML ONE (05:57)
[2024-05-05] MEDS ORDERED: MORPHINE 4 MG/ML SYR ONE (05:57)
[2024-05-05 06:21] LABS: Absolute Lymphocytes (CBC) 1.8 K/uL (0.7-4.9); Absolute Monocytes 0.6 K/uL (0.1-1.3); Absolute Neutrophil 6.4 K/uL (1.8-8.0); Basophils % 0.3 % (0-1.3); Eosinophils % 0.3 % (0-4.4); Hematocrit 36.9 % (39.6-49.0); Hemoglobin 12.3 g/dL (13.6-17.9); Lymphocytes % 20.7 % (15.3-44.8); MCH 29.6 pg (27.0-35.0); MCHC 33.4 g/dL (32.0-36.0); MCV 88.5 fL (80-100); MPV 10.1 fL (7.6-11.3); Monocytes % 6.3 % (3.3-12.3); Neutrophils % 72.4 % (41.7-73.7); Nucleated Red Blood Cells % 0.1 % (0-0); Platelets 178 thou/uL (152-406); RBC Red Blood Cell Count 4.17 M/uL (4.33-5.43); Red Cell Distribution Width 13.3 % (12.1-15.2)
[2024-05-05 06:37] LABS: Albumin 3.8 g/dL (3.4-5.0); Albumin/Globulin Ratio 1.3 (1.1-1.8); Anion Gap 7.8 mEq/L (5.0-15.0); Bilirubin Total 0.5 mg/dL (0.2-1.0); Globulin 2.9 g/dL (2.3-3.5); Potassium 3.8 mEq/L (3.5-5.1); Protein, Total 6.7 g/dL (6.4-8.2)
--- NOTE | 2024-05-05 06:59 | RAD REPORT ---
EXAMINATION: CT ABDOMEN AND PELVIS WITHOUT CONTRAST CLINICAL INDICATION: Male, 53 years old.FLANK PAIN TECHNIQUE: CT abdomen and pelvis was performed, without IV contrast, as per department protocol. Axia l, sagittal and coronal reconstructions were obtained. One or more of the following dose reduction techniques were used: Automated exposure control, adjustment of the mA and/or kV according to the pat ient size, and/or iterative reconstruction. Unless otherwise specified, incidental findings do not require dedicated imaging follow-up. [id number]. IV CONTRAST: Not administered. 07/10/2022 COMPARISON: 07/10/2022 FINDINGS: The lack of intravenous contrast limits the sensitivity of this exam for evaluation of solid visceral organs, vascular structures, and retroperitoneum. LOWER CHEST: The visualized lung bases are clear. LIVER: Normal in size and contour. No focal lesion. GALLBLADDER/BILE DUCTS: Cholecystectomy? PANCREAS: No mass, ductal dilation, or juan-pancreatic fluid. SPLEEN: Normal size. No focal lesion. ADRENALS: Normal; no mass. KIDNEYS AND URETERS: Mild left-sided hydronephrosis secondary to a 7 mm stone at the left UPJ. URINARY BLADDER: Normal contour. GASTROINTESTINAL TRACT: Celi-en-Y gastric bypass. Normal appendix. PERITONEUM: No free fluid. ABDOMINAL AORTA AND OTHER VESSELS: Normal caliber aorta and IVC. REPRODUCTIVE ORGANS: No pathologic process. MUSCULOSKELETAL: No acute or suspicious osseous abnormality. ADDITIONAL FINDINGS: None. IMPRESSION: Mild left-sided hydronephrosis secondary to a 7 mm stone at the left UPJ.
--- NOTE | 2024-05-05 07:21 | ER ---
Nurse's Notes [facility] Name: Get Sloan Age: 53 yrs Sex: Male : 1970 Arrival Date: 05/05/2024 Time: 05:36 Bed 6 Private MD: Diagnosis: Left ureterolithiasis, flank pain, kidney stone Presentation: 05/05 06:01 Chief complaint: Patient states: I have been having left sided pain sinnce yesterday. bm8 Coronavirus screen: Vaccine status: Patient reports receiving the 2nd dose of the covid vaccine. Ebola Screen: Patient negative for fever greater than or equal to 101.5 degrees Fahrenheit, and additional compatible Ebola Virus Disease symptoms Patient denies exposure to infectious person. Patient denies travel to an Ebola-affected area in the 21 days before illness onset. No symptoms or risks identified at this time. Initial Sepsis Screen: Does the patient meet any 2 criteria? No. Patient's initial sepsis screen is negative. Does the patient have a suspected source of infection? No. Patient's initial sepsis screen is negative. Risk Assessment: Do you want to hurt yourself or someone else? Patient reports no desire to harm self or others. Onset of symptoms was May 04, 2024 at 08:00. 06:01 Method Of Arrival: Ambulatory bm8 06:01 Acuity: ANTONIO 3 bm8 Triage Assessment: 06:02 General: Appears distressed, uncomfortable, Behavior is calm, cooperative, appropriate bm8 for age. Pain: Complains of pain in left flank Pain currently is 9 out of 10 on a pain scale. EENT: No deficits noted. No signs and/or symptoms were reported regarding the EENT system. Neuro: No deficits noted. Level of Consciousness is awake, alert, obeys commands, Oriented to person, place, time, situation, Appropriate for age. Cardiovascular: Denies chest pain, Heart tones S1 S2 present Capillary refill < 3 seconds in bilateral fingers Patient's skin is warm and dry. Respiratory: Airway is patent Trachea midline Respiratory effort is even, unlabored, Respiratory pattern is regular, symmetrical. GI: Abdomen is flat, non-distended, Pt is actively vomiting bile, Bowel sounds present X 4 quads. Abdomen is tender to palpation in anterior aspect of left lateral abdomen and posterior aspect of left lateral abdomen Reports nausea, Pain is 9 out of 10 on a pain scale. vomiting. : Denies burning with urination, discharge, inability to void. Derm: No signs and/or symptoms reported regarding the dermatologic system. Musculoskeletal: No signs and/or symptoms reported regarding the musculoskeletal system. Historical: - Allergies: 06:02 No Known Allergies; bm8 - Home Meds: 06:02 Unable to obtain [Active]; bm8 - PMHx: 06:02 Diabetes - IDDM; H Pylori; Hypertension; Hypothyroidism; bm8 - PSHx: 06:02 Gastric Bypass; bm8 - Immunization history:: Adult Immunizations up to date. - Infectious Disease History:: Denies. - Social history:: Smoking status: Patient denies any tobacco usage or history of. Patient/guardian denies using alcohol, street drugs. Screenin:04 [facility] ED Fall Risk Assessment (Adult) History of falling in the last 3 months, bm8 including since admission No falls in past 3 months (0 pts) Confusion or Disorientation No (0 pts) Intoxicated or Sedated No (0 pts) Impaired Gait No (0 pts) Mobility Assist Device Used No (0 pt) Altered Elimination No (0 pt) Score/Fall Risk Level 0 - 2 = Low Risk Oriented to surroundings, Maintained a safe environment, Educated pt \T\ family on fall prevention, incl call for assistance when getting out of bed, Assessed \T\ reinforced patient's understanding of fall precautions, Hourly rounding (assess needs \T\ fall precautionary measures) done, Used ambulatory aids as needed (educated on \T\ assisted with), Used gait belt as appropriate. Abuse screen: Denies threats or abuse. Nutritional screening: No deficits noted. Tuberculosis screening: No symptoms or risk factors identified. Assessment: 06:04 General: see triage assessment. bm8 06:20 Reassessment: Patient appears in no apparent distress at this time. Patient and/or bm8 family updated on plan of care and expected duration. Pain level reassessed. Patient is alert, oriented x 3, equal unlabored respirations, skin warm/dry/pink. pt appears ore relaxed, is resting in bed with at bedside. Patient states feeling better. 07:39 Reassessment: Patient appears in no apparent distress at this time. Patient and/or ph family updated on plan of care and expected duration. Pain level reassessed. Patient is alert, oriented x 3, equal unlabored respirations, skin warm/dry/pink. Patient states symptoms have improved. Vital Signs: 06:01 BP 170 / 87; Pulse 55; Resp 20; Temp 97.8; Pulse Ox 100% ; Weight 86.18 kg; Height 5 bm8 ft. 10 in. ; Pain 9/10; 06:20 BP 137 / 87; Pulse 47; Resp 18; Temp 97.8; Pulse Ox 98% ; Pain 4/10; bm8 07:39 BP 119 / 79; Pulse 50; Resp 18; Temp 97.8; Pulse Ox 97% on R/A; ph 06:01 Body Mass Index 27.26 (86.18 kg, 177.8 cm) bm8 06:01 Pain Scale: Adult bm8 06:20 Pain Scale: Adult bm8 [place] Coma Score: 06:04 Eye Response: spontaneous(4). Motor Response: obeys commands(6). Verbal Response: bm8 oriented(5). Total: 15. 06:20 Eye Response: spontaneous(4). Motor Response: obeys commands(6). Verbal Response: bm8 oriented(5). Total: 15. ED Course: 05:39 Patient arrived in ED. gm2 05:50 Angelito Naylor MD is Attending Physician. ec2 06:01 Rohan Duque, RN is Primary Nurse. bm8 06:02 Triage completed. bm8 06:02 Arm band placed on right wrist. bm8 06:04 Patient has correct armband on for positive identification. Bed in low position. Call bm8 light in reach. Side rails up X 1. Adult w/ patient. Client placed on continuous cardiac and pulse oximetry monitoring. NIBP monitoring applied. Pulse ox on. NIBP on. Door closed. Noise minimized. Pillow given. Verbal reassurance given. Head of bed elevated. 06:04 No provider procedures requiring assistance completed. Initial lab(s) drawn, by soledad pelayo sent to lab. Inserted saline lock: 20 gauge in left forearm, using aseptic technique. Blood collected. Flushed with 10 mL NS. Patient maintains SpO2 saturation greater than 95% on room air. 06:45 CT Abd/Pelvis - Without Contrast In Process Unspecified. EDMS 07:01 Attending Physician role handed off by Angelito Naylor MD sp3 07:01 Faith King MD is Attending Physician. sp3 07:06 Report given to PJ and NOREEN Law. bm8 07:20 Deny Stanford MD is Referral Physician. sp3 07:39 IV discontinued, intact, bleeding controlled, No redness/swelling at site. Pressure ph dressing applied. Administered Medications: 06:06 Drug: TORadol - Ketorolac IVP 15 mg IVP once Route: IVP; Site: left forearm; bm8 06:21 Follow up: Response: No adverse reaction bm8 06:06 Drug: Ondansetron IVP 4 mg IVP once; over 2 minutes Route: IVP; Site: left forearm; bm8 06:21 Follow up: Response: No adverse reaction bm8 06:06 Drug: morphine IVP or IV 4 mg IVP once over 4 mins Route: IVP; Infused Over: 4 mins; bm8 Site: left forearm; 06:21 Follow up: Response: No adverse reaction bm8 06:06 Drug: NS 0.9% IV 1000 ml IV at 1 bolus Per protocol; to be given as a bolus over 60 bm8 minutes Route: IV; Rate: 1 bolus; Site: left forearm; 07:15 Follow up: Response: No adverse reaction; IV Status: Completed infusion; IV Intake: ph 1000ml Medication: 06:04 VIS not applicable for this client. bm8 Intake: 07:15 IV: 1000ml; Total: 1000ml. ph Outcome: 07:21 Discharge ordered by . sp3 07:40 Discharged to home ambulatory, with significant other, ph 07:40 Condition: good 07:40 Discharge instructions given to patient, significant other, Instructed on discharge instructions, follow up and referral plans. medication usage, Demonstrated understanding of instructions, follow-up care, medications, Prescriptions given X 2, 07:41 Patient left the ED. ph Signatures: Dispatcher [employer] Emmie Glasgow RN RN ph Faith King MD MD sp3 Angelito Naylor MD MD ec Teri Rivera [facility] Rohan Duque RN RN bm8
--- NOTE | 2024-05-05 07:21 | EDPHYS ---
Physician Documentation [facility] Name: Get Sloan Age: 53 yrs Sex: Male : 1970 Arrival Date: 05/05/2024 Time: 05:36 Bed 6 Private MD: ED Physician Faith King HPI: 05/05 06:29 This 53 yrs old Male presents to ER via Ambulatory with complaints of Possible ec2 Kidney Stone, Low Back Pain, Vomiting. 06:29 Patient arrives today for evaluation of left flank pain. Patient reports flank pain ec2 onset 2 days. Reports that the pain is sharp and rating to the lower abdomen, some nausea, no vomiting. No dysuria, no hematuria. No previous kidney stones or diverticulitis.. Historical: - Allergies: 06:02 No Known Allergies; bm8 - Home Meds: 06:02 Unable to obtain [Active]; bm8 - PMHx: 06:02 Diabetes - IDDM; H Pylori; Hypertension; Hypothyroidism; bm8 - PSHx: 06:02 Gastric Bypass; bm8 - Immunization history:: Adult Immunizations up to date. - Infectious Disease History:: Denies. - Social history:: Smoking status: Patient denies any tobacco usage or history of. Patient/guardian denies using alcohol, street drugs. ROS: 06:29 Constitutional: as per hpi ec2 Exam: 06:29 Constitutional: GEN: NAD Head: atraumatic Eyes: EOMI Ears: External ears are ec2 normal. CV: regular rate LUNGS: no respiratory distress ABD: non-distended, soft, nontender, not guarding, not rigid, left flank and CVA TTP. SKIN: no evidence of rashes MSK: no evidence of trauma Vital Signs: 06:01 BP 170 / 87; Pulse 55; Resp 20; Temp 97.8; Pulse Ox 100% ; Weight 86.18 kg; Height 5 bm8 ft. 10 in. ; Pain 9/10; 06:20 BP 137 / 87; Pulse 47; Resp 18; Temp 97.8; Pulse Ox 98% ; Pain 4/10; bm8 07:39 BP 119 / 79; Pulse 50; Resp 18; Temp 97.8; Pulse Ox 97% on R/A; ph 06:01 Body Mass Index 27.26 (86.18 kg, 177.8 cm) bm8 06:01 Pain Scale: Adult bm8 06:20 Pain Scale: Adult bm8 [place] Coma Score: 06:04 Eye Response: spontaneous(4). Motor Response: obeys commands(6). Verbal Response: bm8 oriented(5). Total: 15. 06:20 Eye Response: spontaneous(4). Motor Response: obeys commands(6). Verbal Response: bm8 oriented(5). Total: 15. MDM: 05:50 Medical Screening Exam initiated ec2 06:29 Data reviewed: vital signs, nurses notes. ED course: Patient arrives today for ec2 evaluation of left flank pain. Examination revealing for well-appearing nontoxic individuals otherwise in no acute distress with a reassuring examination with left CVA TTP. Will obtain lab work, urine studies, CT imaging. Differential clues process such as diverticulitis, ureteral stone, urinary tract infection.. 06:42 ED course: On reassessment patient with improvement in pain.. ec2 07:19 ED course: Patient signed out to me by nighttime physician. Left-sided flank pain with sp3 concern for kidney stone. CT scan indeed shows 7 mm stone at the left UPJ. Patient is currently pain-free and resting comfortably. I explained to him that he will have further pain as the stone gets to the UVJ. We will discharge on tramadol and diclofenac with follow-up to urology. Patient knows to return here or drive to [place] where urology is available for further intervention as needed.. [id number] 05:56 Order name: CBC with Diff; Complete Time: 06:38 ec2 08 05:56 Order name: CMP; Complete Time: 06:38 ec2 08 05:56 Order name: Lipase; Complete Time: 06:38 ec2 08 05:56 Order name: CT Abd/Pelvis - Without Contrast; Complete Time: 07:07 ec2 08 05:56 Order name: IV Saline Lock; Complete Time: 06:06 ec2 08 05:56 Order name: Labs collected and sent; Complete Time: 06:06 ec2 Administered Medications: 06:06 Drug: TORadol - Ketorolac IVP 15 mg IVP once Route: IVP; Site: left forearm; bm8 06:21 Follow up: Response: No adverse reaction bm8 06:06 Drug: Ondansetron IVP 4 mg IVP once; over 2 minutes Route: IVP; Site: left forearm; bm8 06:21 Follow up: Response: No adverse reaction bm8 06:06 Drug: morphine IVP or IV 4 mg IVP once over 4 mins Route: IVP; Infused Over: 4 mins; bm8 Site: left forearm; 06:21 Follow up: Response: No adverse reaction bm8 06:06 Drug: NS 0.9% IV 1000 ml IV at 1 bolus Per protocol; to be given as a bolus over 60 bm8 minutes Route: IV; Rate: 1 bolus; Site: left forearm; 07:15 Follow up: Response: No adverse reaction; IV Status: Completed infusion; IV Intake: ph 1000ml Disposition Summary: 05/05/24 07:21 Discharge Ordered Notes: Location: Home sp3 Condition: Stable sp3 Diagnosis - Left ureterolithiasis, flank pain, kidney stone sp3 Followup: sp3 - With: Deny Stanford MD - When: Upon discharge from the Emergency Department - Reason: Recheck today's complaints Discharge Instructions: - Discharge Summary Sheet sp3 - Kidney Stones sp3 - Dietary Guidelines to Help Prevent Kidney Stones sp3 Forms: - Medication Reconciliation Form sp3 - Antibiotic Education sp3 - Prescription Opioid Use sp3 - Patient Portal Instructions sp3 - Leadership Thank You Letter sp3 Prescriptions: - Diclofenac Sodium 75 mg Oral Tablet Sustained Release - take 1 tablet ORAL route 2 times per day; 30 tablet; Refills: 0, Product sp3 Selection Permitted - Tramadol 50 mg Oral Tablet - take 1 tablet ORAL route every 8 hours as needed; 12 tablet; Refills: 0, sp3 Product Selection Permitted Signatures: Dispatcher [employer] EDFaith Napier MD MD sp3 Angelito Naylor MD MD ec2 Rohan Duque, RN RN bm8 Emmie Casillas RN ph Corrections: (The following items were deleted from the chart) 05:56 05:56 CBC+H.LAB.BRZ ordered. EDMS EDMS 05:56 05:56 COMPREHENSIVE METABOLIC PANEL+C.LAB.BRZ ordered. EDMS EDMS 05:56 05:56 LIPASE+C.LAB.BRZ ordered. EDMS EDMS 05:56 05:56 Abdomen Pelvis Wo Con+CT.RAD.BRZ ordered. EDMS EDMS
[2024-05-05 12:12] VITALS: TEMP 97.8
[2024-05-05 12:15] VITALS: BP 119/79; O2SAT 97
== END 2024-05-05 07:41 | disposition home or self-care (01) ==
LOC: ER 05:36
DX: N20.2 Calculus of kidney with calculus of ureter (principal)
CPT/HCPCS: 36415; 74176; 80053; 83690; 85025; 96361; 96374; 96375; 99284; J2405; J7030

== ENCOUNTER 2024-05-08 20:08 | Emergency (ER) | payer SELFPAY ==
--- NOTE | 2024-05-08 21:24 | RAD REPORT ---
EXAMINATION: CT ABDOMEN AND PELVIS WITHOUT CONTRAST CLINICAL INDICATION: left kidney stone TECHNIQUE: CT abdomen and pelvis was performed, without IV contrast, as per department protocol. Axia l, sagittal and coronal reconstructions were obtained. One or more of the following dose reduction techniques were used: Automated exposure control, adjustment of the mA and kV according to the patien t size, and iterative reconstruction. Unless otherwise specified, incidental findings do not require dedicated imaging follow-up. COMPARISON: 05/05/2024 FINDINGS: The lack of intravenous contrast limits the sensitivity of this exam for evaluation of solid visceral organs, vascular structures, and retroperitoneum. LOWER CHEST: The visualized lung bases are clear. Postsurgical changes about the stomach. LIVER:Normal in size and contour. No focal lesion. Cholecystectomy clips. SPLEEN: Normal size. No focal lesion. PANCREAS: No mass, ductal dilation, or juan-pancreatic fluid. ADRENALS: Normal; no mass. KIDNEYS AND URETERS: 8 mm stone is present left UPJ resulting in [id number] left hydronephrosis . The stone has not significantly changed in position since prior study. Mild fluid noted surrounding the left ureter. URINARY BLADDER: Normal contour. GASTROINTESTINAL TRACT: No evidence of bowel obstruction, significant free fluid, free air or abscess . Moderate stool is present throughout the colon. APPENDIX: Normal appendix. LYMPH NODES: No lymphadenopathy. MUSCULOSKELETAL: No acute or suspicious osseous abnormality. ADDITIONAL FINDINGS: None. IMPRESSION: 8 mm stone present left UPJ resulting in mild to moderate left hydronephrosis. Position of the stone has not changed since the prior study. Mild fluid seen surrounding the left ureter.
[2024-05-08] MEDS ORDERED: ONDANSETRON 4 MG/2 ML VIAL ONE (22:21)
[2024-05-08] MEDS ORDERED: TAMSULOSIN 0.4 MG SR CAP ONE (22:21)
[2024-05-08] MEDS ORDERED: KETOROLAC 30 MG/ML INJ ONE (22:21)
[2024-05-08] MEDS ORDERED: NA CHLORIDE 0.9% 1,000 ML ONE (22:22)
[2024-05-08] MEDS ORDERED: MORPHINE 4 MG/ML SYR ONE (22:22)
[2024-05-08 22:32] LABS: Absolute Eosinophils 0.2 K/uL (0-0.5); Absolute Lymphocytes (CBC) 1.8 K/uL (0.7-4.9); Absolute Monocytes 0.7 K/uL (0.1-1.3); Absolute Neutrophil 4.1 K/uL (1.8-8.0); Basophils % 0.6 % (0-1.3); Eosinophils % 3.2 % (0-4.4); Hematocrit 35.6 % (39.6-49.0); Hemoglobin 11.7 g/dL (13.6-17.9); Lymphocytes % 26.4 % (15.3-44.8); MCH 29.2 pg (27.0-35.0); MCHC 32.8 g/dL (32.0-36.0); MPV 9.8 fL (7.6-11.3); Monocytes % 9.6 % (3.3-12.3); Neutrophils % 60.2 % (41.7-73.7); Platelets 168 thou/uL (152-406); Red Cell Distribution Width 13.3 % (12.1-15.2)
[2024-05-08 22:33] LABS: Specific Gravity 1.014 (1.005-1.030); Sqamous Epithelial None Seen /HPF (None Seen); Urine Bacteria None Seen /HPF (<20); Urine Bilirubin NEGATIVE (Negative); Urine Blood Negative (Negative); Urine Clarity Clear (Clear); Urine Color Light-Yellow (Yellow); Urine Culture Reflex Order NOT NEEDED; Urine Glucose NEGATIVE (Negative); Urine Ketones TRACE (Negative); Urine Micro Reflex YN NO BILL MICROSCOPIC; Urine Mucus Slight /HPF (None Seen); Urine Nitrite NEGATIVE (Negative); Urine Protein NEGATIVE (Negative); Urine RBC <5 /HPF (None Seen); Urine Urobilinogen Normal (Normal); Urine WBC <5 /HPF (<5); Urine pH 5.5 (5.0-7.0)
[2024-05-08 22:50] LABS: Albumin 3.8 g/dL (3.4-5.0); Albumin/Globulin Ratio 1.1 (1.1-1.8); Anion Gap 6.1 mEq/L (5.0-15.0); Bilirubin Direct 0.2 mg/dL (0-0.2); Bilirubin Indirect, Calculated 0.4 mg/dL (0.2-0.8); Bilirubin Total 0.6 mg/dL (0.2-1.0); C-Reactive Protein 47.5 mg/L (<3.00); Globulin 3.4 g/dL (2.3-3.5); Potassium 4.1 mEq/L (3.5-5.1); Protein, Total 7.2 g/dL (6.4-8.2)
--- NOTE | 2024-05-08 23:00 | ER ---
Nurse's Notes [facility] Name: Get Sloan Age: 53 yrs Sex: Male : 1970 Arrival Date: 05/08/2024 Time: 20:08 Bed 13 Private MD: Diagnosis: Left ureteral calculus, 8 mm left ureteral calculus with obstruction and hydronephrosis, intractable left flank pain Presentation: 05/08 20:39 Chief complaint: Patient states: I came here on the 8th because I have a kidney stone. tm6 The pain has gotten worse since then. No n/v, no blood in the urine. The medicine prescribed has not been helping me. Coronavirus screen: Client denies travel out of the [place] in the last 14 days. Ebola Screen: Patient negative for fever greater than or equal to 101.5 degrees Fahrenheit, and additional compatible Ebola Virus Disease symptoms Patient denies exposure to infectious person. Patient denies travel to an Ebola-affected area in the 21 days before illness onset. No symptoms or risks identified at this time. Initial Sepsis Screen: Does the patient meet any 2 criteria? No. Patient's initial sepsis screen is negative. Does the patient have a suspected source of infection? No. Patient's initial sepsis screen is negative. Risk Assessment: Do you want to hurt yourself or someone else? Patient reports no desire to harm self or others. Onset of symptoms was May 04, 2024. 20:39 Method Of Arrival: Ambulatory tm6 20:39 Acuity: ANTONIO 3 tm6 Triage Assessment: 20:39 General: Appears uncomfortable, ill, Behavior is cooperative. Pain:. EENT: No signs tm6 and/or symptoms were reported regarding the EENT system. Neuro: Level of Consciousness is awake, alert, obeys commands, Oriented to person, place, time, situation. Cardiovascular: Patient's skin is warm and dry. Respiratory: Airway is patent Respiratory effort is even, unlabored, Respiratory pattern is regular, symmetrical. Derm: No signs and/or symptoms reported regarding the dermatologic system. Musculoskeletal: No signs and/or symptoms reported regarding the musculoskeletal system. 20:41 Pain: Complains of pain in left low back and left lower quadrant Pain currently is 7 tm6 out of 10 on a pain scale. Pain began 2-3 days ago. GI: Abdomen is flat, non-distended, Reports lower abdominal pain. : Reports pain in left flank(s). Historical: - Allergies: 20:38 No Known Allergies; tm6 - PMHx: 20:38 Diabetes - IDDM; H Pylori; Hypertension; Hypothyroidism; tm6 - PSHx: 20:38 Gastric Bypass; tm6 - Immunization history:: Flu vaccine is not up to date. - Infectious Disease History:: Denies. - Social history:: Smoking status: Patient denies any tobacco usage or history of. - Family history:: not pertinent. Screenin:00 [facility] ED Fall Risk Assessment (Adult) History of falling in the last 3 months, kj2 including since admission No falls in past 3 months (0 pts) Confusion or Disorientation No (0 pts) Intoxicated or Sedated No (0 pts) Impaired Gait No (0 pts) Mobility Assist Device Used No (0 pt) Altered Elimination No (0 pt) Score/Fall Risk Level 0 - 2 = Low Risk Maintained a safe environment, Hourly rounding (assess needs \T\ fall precautionary measures) done. Abuse screen: Denies threats or abuse. Denies injuries from another. Nutritional screening: No deficits noted. Tuberculosis screening: No symptoms or risk factors identified. Assessment: 22:00 General: Appears in no apparent distress. uncomfortable, Behavior is calm, cooperative. kj2 Pain: Complains of pain in abdomen and back and left low back Pain currently is 8 out of 10 on a pain scale. Neuro: Level of Consciousness is awake, alert, obeys commands, Oriented to person, place. Cardiovascular: Patient's skin is warm and dry. Respiratory: Airway is patent Respiratory effort is even, unlabored. GI: No signs and/or symptoms were reported involving the gastrointestinal system. : Reports pain in lower back. 23:00 Reassessment: Patient appears in no apparent distress at this time. Patient and/or kj2 family updated on plan of care and expected duration. Pain level reassessed. Patient is alert, oriented x 3, equal unlabored respirations, skin warm/dry/pink. 05/09 00:22 Reassessment: EMS arrived to transport patient. kj2 00:24 GI: Bowel sounds present X 4 quads. Abdomen is tender to palpation X 4 quads. kj2 Vital Signs: 05/08 20:38 BP 132 / 90; Pulse 62; Resp 18; Temp 98.6(O); Pulse Ox 98% on R/A; MAP 103 mmHg; Weight tm6 86.18 kg; Height 5 ft. 10 in. ; Pain 710; 22:00 BP 134 / 88; Pulse 64; Resp 18; Pulse Ox 100% on R/A; kj2 23:00 BP 117 / 70; Pulse 60; Resp 20; Pulse Ox 100% on R/A; kj2 05/09 00:00 BP 118 / 76; Pulse 68; Resp 20; Temp 98; Pulse Ox 100% on R/A; kj2 05/08 20:38 Body Mass Index 27.26 (86.18 kg, 177.8 cm) tm6 05/08 20:38 Pain Scale: Adult tm6 ED Course: 05/08 20:09 Patient arrived in ED. im 20:26 Benito Tovar MD is Attending Physician. sp4 20:40 Triage completed. tm6 20:41 Arm band placed on left wrist. tm6 21:11 CT Abd/Pelvis - Without Contrast In Process Unspecified. EDMS 22:00 Patient has correct armband on for positive identification. Bed in low position. Call kj2 light in reach. Provided Education on: call light. 22:28 CBC with Diff Sent. vk 22:28 LFT's Sent. vk 22:28 Urinalysis W/Microscopic Sent. vk 22:28 Inserted saline lock: 20 gauge in right antecubital area, using aseptic technique. vk Blood collected. Flushed with 10 mL NS. 22:29 Initial lab(s) drawn, by me, sent to lab. Urine collected: clean catch specimen, clear. vk 22:48 Lashonda Nielsen, RN is Primary Nurse. kj2 23:30 initiated transfer with Guera Sifuentes \Kaci\ [facility] at capacity. Trying [facility]. 05/09 00:23 No provider procedures requiring assistance completed. Patient transferred, IV remains kj2 in place. Administered Medications: 05/08 22:25 Drug: NS 0.9% IV 1000 ml IV at 1000 ml once; to be given as a bolus over 60 minutes kl Route: IV; Rate: 1000 ml; Site: right antecubital; 23:25 Follow up: IV Status: Completed infusion; IV Intake: 1000ml kj2 22:25 Drug: Ondansetron IVP 8 mg IVP once; over 2 minutes Route: IVP; Site: right antecubital; 05/09 00:26 Follow up: Response: No adverse reaction kj2 05/08 22:30 Drug: morphine IVP or IV 4 mg IVP once over 4 mins Route: IVP; Infused Over: 4 mins; Site: right antecubital; 05/09 00:27 Follow up: Response: No adverse reaction kj2 05/08 22:36 Drug: Ketorolac IVP 30 mg IVP once Route: IVP; Site: right antecubital; 05/09 00:27 Follow up: Response: No adverse reaction kj2 05/08 22:38 Drug: Flomax PO 0.8 mg PO once Route: PO; 05/09 00:26 Follow up: Response: No adverse reaction kj2 Medication: 00:26 VIS not applicable for this client. kj2 Intake: 05/08 23:25 IV: 1000ml; Total: 1000ml. kj2 Outcome: 23:00 ER care complete, transfer ordered by . meño 05/09 00:24 Transferred by ground EMS to [facility], kj2 Transferred by ground EMS Note: [facility] Condition: stable 00:28 Patient left the ED. kj2 Signatures: Dispatcher [employer] Kathryn Bowers, RN Benito Abdullahi MD MD sp4 Marlene Payne Kelsey Maroul [facility] Lori Mcdaniels RN RN [facility] Ebony Boyd Krystal, RN RN kj2 Corrections: (The following items were deleted from the chart) 05/08 22:32 22:28 C-REACTIVE PROTEIN+C.LAB.BRZ drawn and sent. merlyn MCKEON
--- NOTE | 2024-05-08 23:00 | EDPHYS ---
Physician Documentation [facility] Name: Get Sloan Age: 53 yrs Sex: Male : 1970 Arrival Date: 05/08/2024 Time: 20:08 Bed 13 Private MD: ED Physician Benito Tovar HPI: 05/08 20:27 This 53 yrs old Male presents to ER via Unassigned with complaints of Possible sp4 Kidney Stone. 23:46 Patient presents with moderate to severe pain left flank. Patient diagnosed with 7 mm sp4 left ureteral stone on 05/05/[address] scan here. . Historical: - Allergies: 20:38 No Known Allergies; tm6 - PMHx: 20:38 Diabetes - IDDM; H Pylori; Hypertension; Hypothyroidism; tm6 - PSHx: 20:38 Gastric Bypass; tm6 - Immunization history:: Flu vaccine is not up to date. - Infectious Disease History:: Denies. - Social history:: Smoking status: Patient denies any tobacco usage or history of. - Family history:: not pertinent. ROS: 23:46 Constitutional: Negative for fever, chills, and weight loss, Positive left flank pain, sp4 Positive vomiting. 23:46 All other systems are negative, Exam: 23:46 Constitutional: This is a well developed, well nourished patient who is awake, alert, sp4 moderate distress secondary to pain.. Head/Face: Normocephalic, atraumatic. Eyes: Pupils equal round and reactive to light, extra-ocular motions intact. Lids and lashes normal. Conjunctiva and sclera are not injected. Cornea within normal limits. Periorbital areas with no swelling, redness, or edema. ENT: Nares patent. No nasal discharge, no septal abnormalities noted. Tympanic membranes are normal and external auditory canals are clear. Oropharynx with no redness, swelling, or masses, exudates, or evidence of obstruction, uvula midline. Mucous membranes moist. Neck: Trachea midline, no thyromegaly or masses palpated, and no cervical lymphadenopathy. Supple, full range of motion without nuchal rigidity, or vertebral point tenderness. Chest/axilla: Normal chest wall appearance and motion. Nontender with no deformity. No lesions are appreciated. Cardiovascular: Regular rate and rhythm with a normal S1 and S2. No gallops, murmurs, or rubs. Normal PMI, no JVD. No pulse deficits. Respiratory: Lungs have equal breath sounds bilaterally, clear to auscultation and percussion. No rales, rhonchi or wheezes noted. No increased work of breathing, no retractions or nasal flaring. Abdomen/GI: Soft, with normal bowel sounds. No distension or tympany. No guarding or rebound. No evidence of tenderness throughout. Back: No spinal tenderness. No costovertebral tenderness. Skin: Warm, dry with normal turgor. Normal color with no rashes, no lesions, and no evidence of cellulitis. MS/ Extremity: Pulses equal, no cyanosis. Neurovascular intact. Full, normal range of motion. Neuro: Awake and alert, GCS 15, oriented to person, place, time, and situation. Cranial nerves II-XII grossly intact. Motor strength 5/5 in all extremities. Sensory grossly intact. Psych: Awake, alert, with orientation to person, place and time. Behavior, mood, and affect are within normal limits Vital Signs: 20:38 BP 132 / 90; Pulse 62; Resp 18; Temp 98.6(O); Pulse Ox 98% on R/A; MAP 103 mmHg; Weight tm6 86.18 kg; Height 5 ft. 10 in. ; Pain 7/10; 22:00 BP 134 / 88; Pulse 64; Resp 18; Pulse Ox 100% on R/A; kj2 23:00 BP 117 / 70; Pulse 60; Resp 20; Pulse Ox 100% on R/A; kj2 05/09 00:00 BP 118 / 76; Pulse 68; Resp 20; Temp 98; Pulse Ox 100% on R/A; kj2 05/08 20:38 Body Mass Index 27.26 (86.18 kg, 177.8 cm) tm6 05/08 20:38 Pain Scale: Adult tm6 MDM: 05/08 20:28 Medical Screening Exam initiated sp4 23:54 Differential diagnosis: Fatigue Fracture Peptic Ulcer Pyelonephritis Renal Infarction. sp4 Data reviewed: vital signs, nurses notes, lab test result(s), radiologic studies, CT scan. 05/09 00:00 ED course: CT IMPRESSION: 8 mm stone present left UPJ resulting in mild to moderate sp4 left hydronephrosis. Position of the stone has not changed since the prior study. Mild fluid seen surrounding the left ureter.. 05/08 20:28 Order name: Basic Metabolic Panel; Complete Time: 22:55 sp4 05/08 20:28 Order name: CBC with Diff; Complete Time: 22:55 sp4 05/08 20:28 Order name: LFT's; Complete Time: 22:55 sp4 05/08 20:28 Order name: Urinalysis W/Microscopic; Complete Time: 22:44 sp4 05/08 22:32 Order name: C-Reactive Protein; Complete Time: 22:55 EDMS 05/08 20:43 Order name: CT Abd/Pelvis - Without Contrast; Complete Time: 22:15 sp4 05/08 20:28 Order name: IV Saline Lock; Complete Time: 22:27 sp4 05/08 20:28 Order name: Labs collected and sent; Complete Time: 22:28 sp4 Administered Medications: 05/08 22:25 Drug: NS 0.9% IV 1000 ml IV at 1000 ml once; to be given as a bolus over 60 minutes Route: IV; Rate: 1000 ml; Site: right antecubital; 23:25 Follow up: IV Status: Completed infusion; IV Intake: 1000ml kj2 22:25 Drug: Ondansetron IVP 8 mg IVP once; over 2 minutes Route: IVP; Site: right antecubital; 05/09 00:26 Follow up: Response: No adverse reaction 2 05/08 22:30 Drug: morphine IVP or IV 4 mg IVP once over 4 mins Route: IVP; Infused Over: 4 mins; Site: right antecubital; 05/09 00:27 Follow up: Response: No adverse reaction kj2 05/08 22:36 Drug: Ketorolac IVP 30 mg IVP once Route: IVP; Site: right antecubital; 05/09 00:27 Follow up: Response: No adverse reaction kj2 05/08 22:38 Drug: Flomax PO 0.8 mg PO once Route: PO; 05/09 00:26 Follow up: Response: No adverse reaction kj2 Disposition Summary: 05/08/24 23:00 Transfer Ordered Notes: Transfer Location: Other [facility] sp4 Reason: Higher level of care sp4 Condition: Stable sp4 Problem: new sp4 Symptoms: have improved sp4 Accepting Physician: Accepting Hospitalist (05/09/24 00:28) kj2 Diagnosis - Left ureteral calculus, 8 mm left ureteral calculus with obstruction and sp4 hydronephrosis, intractable left flank pain Forms: - Medication Reconciliation Form sp4 - SBAR form sp4 Signatures: Dispatcher [employer] EDKathryn Dolan RN RN Benito Jensen MD MD sp4 Lori Mcdaniels RN RN tm6 Lashonda Nielsen RN RN kj2 Corrections: (The following items were deleted from the chart) 05/08 22:32 20:44 C-REACTIVE PROTEIN+C.LAB.BRZ ordered. EDLA EDLA 05/09 00:28 05/08 23:00 Accepting Hospitalist sp4 kj2
[2024-05-09 00:49] VITALS: O2SAT 100
[2024-05-09 00:51] VITALS: BP 118/76; TEMP 98
== END 2024-05-09 00:28 | disposition short-term general hospital (02) ==
LOC: ER 20:08
DX: N13.2 Hydronephrosis with renal and ureteral calculous obstruction (principal); E11.9 Type 2 diabetes mellitus without complications; I10 Essential (primary) hypertension; E03.9 Hypothyroidism, unspecified
CPT/HCPCS: 36415; 74176; 80048; 80076; 81001; 85025; 86140; 96361; 96374; 96375; 99285; J2405; J7030